=== PATIENT | male | born 1930 | race Caucasian/White ===

== ENCOUNTER → 2016-11-08 | Outpatient (CLI) | payer MEDICARE ==
--- NOTE | 2016-11-08 10:54 | XR ---
EXAMINATION TYPE: XR abdomen complete w decub DATE OF EXAM: 11/08/2016 10:49 AM COMPARISON: NONE HISTORY: Small bowel obstruction abdomen pain and distention TECHNIQUE: Abdomen is examined in the supine and upright left lateral decubitus views. FINDINGS: No free air is present. Nonspecific bowel gas is present with air within small bowel loops as well a s the colon. Fecal debris is within the colon. No dilated loops are evident. No suspicious air-fluid levels or differential air-fluid levels are present. Psoas margins are normal. Organomegaly is not ev ident. Cholecystectomy clips are in the right upper quadrant. A left hip prosthesis is present. IMPRESSION: 1. Nonspecific abdomen.
[2016-11-08 11:35] LABS: Calcium 9.8 mg/dL (8.4-10.2); Potassium 5.1 mmol/L (3.5-5.1); Total Bilirubin 0.8 mg/dL (0.2-1.3); Total Protein 6.8 g/dL (6.3-8.2)
[2016-11-08 11:52] LABS: CH 31.8; CHCM 33.7; HGB 11.3 gm/dL (13.0-17.5); MCH 31.6 pg (25.0-35.0); MCHC 33.3 g/dL (31.0-37.0); Mean Platelet Volume 8.8; RBC 3.58 m/uL (4.30-5.90); RDW 13.5 % (11.5-15.5); WBC 2.9 k/uL (3.8-10.6)
[2016-11-08 14:01] LABS: Hemoglobin A1C 7.1 % (4.2-6.1)
== END | disposition home or self-care (01) ==
LOC: RADXRMAIN 09:51
PROVIDERS: ATTEND Family Medicine
DX: R10.9 Unspecified abdominal pain (principal); K59.00 Constipation, unspecified; E11.9 Type 2 diabetes mellitus without complications; N39.0 Urinary tract infection, site not specified
CPT/HCPCS: 36415; 74020; 80053; 83036; 85027

== ENCOUNTER 2016-11-10 00:58 | Inpatient (IN) | payer MEDICARE ==
--- NOTE | 2016-11-10 01:16 | ED ---
General Adult HPI - General Chief complaint: Abdominal Pain Stated complaint: abd pain Time Seen by Provider: 11/10/16 01:14 Source: patient, RN notes reviewed, old records reviewed Mode of arrival: ambulatory Limitations: no limitations - History of Present Illness Initial comments: This is an 86-year-old male ER for evaluation of abdominal pain. Patient presenting to ER with evaluation of severe abdominal pain, inability to urinate , mild nausea no vomiting. Patient does self cath and has history of urinary tract infections. Patient also having difficulty was going to the bathroom, feels like he may be constipated. Not having complete bowel movements. No fevers no other complaints - Related Data Home Medications Medication Instructions Recorded Confirmed ALPRAZolam [Xanax] 0.25 mg PO DIRECTED PRN 06/30/14 11/10/16 Omeprazole [PriLOSEC] 20 mg PO DAILY 06/30/14 11/10/16 Simvastatin [Zocor] 20 mg PO DAILY 06/30/14 11/10/16 amLODIPine BESYLATE [Norvasc] 5 mg PO DAILY 06/30/14 11/10/16 metFORMIN HCL 1,000 mg PO DAILY 06/30/14 11/10/16 Previous Rx's Medication Instructions Recorded Levofloxacin [Levaquin] 500 mg PO DAILY #10 tab 07/03/14 Allergies Allergy/AdvReac Type Severity Reaction Status Date / Time No Known Allergies Allergy Verified 06/30/14 18:08 Review of Systems ROS Statement: Those systems with pertinent positive or pertinent negative responses have been documented in the HPI. ROS Other: All systems not noted in ROS Statement are negative. 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 Absent: scleral icterus, conjunctival injection, periorbital swelling ENT exam: Present: normal exam, mucous membranes moist Neck exam: Present: normal inspection. Absent: tenderness, meningismus, lymphadenopathy Respiratory exam: Present: normal lung sounds bilaterally. Absent: respiratory distress, wheezes, rales, rhonchi, stridor Cardiovascular Exam: Present: regular rate, normal rhythm, normal heart sounds. Absent: systolic murmur, diastolic murmur, rubs, gallop, clicks GI/Abdominal exam: Present: soft, distended, tenderness, guarding, normal bowel sounds. Absent: rebound, rigid Extremities exam: Present: normal inspection, full ROM, normal capillary refill. Absent: tenderness, pedal edema, joint swelling, calf tenderness Back exam: Present: normal inspection Neurological exam: Present: alert, oriented X3, CN II-XII intact Psychiatric exam: Present: normal affect, normal mood Skin exam: Present: warm, dry, intact, normal color. Absent: rash Course Vital Signs 11/10/16 11/10/16 01:02 03:09 Temperature 97.6 F Pulse Rate 83 82 Respiratory 20 16 Rate Blood Pressure 105/48 131/49 O2 Sat by Pulse 94 L 93 L Oximetry - Reevaluation(s) Reevaluation #1: 11/10/16 01:41 Patient's bowel pain is mildly improved Reevaluation #2: 11/10/16 03:30 Patient still of mild abdominal pain EKG Findings - EKG Comments: EKG Findings:: EKG shows normal sinus rhythm rate of 79, MS 136, qRS 74, QTC 417 Medical Decision Making - Medical Decision Making 86 male to the ER for evaluation PT patient presents for evaluation. Worsening bowel pain for a few days now. Patient does have CAT scan positive for cellulitis we'll consult surgery regarding possible development of Crohn's disease. Patient is also had decreased bowel movements. We'll also see surgery for that issue. Patient has no evidence of infection is dehydrated, we' ll keep patient nothing by mouth. - Lab Data Result diagrams: 11/10/16 01:30 11/10/16 01:30 Lab Results 11/10/16 11/10/16 11/10/16 Range/Units 01:30 01:30 01:30 WBC 3.0 L (3.8-10.6) k/uL RBC 3.41 L (4.30-5.90) m/uL Hgb 10.9 L (13.0-17.5) gm/dL Hct 32.0 L (39.0-53.0) % MCV 93.9 (80.0-100.0) fL MCH 32.0 (25.0-35.0) pg MCHC 34.1 (31.0-37.0) g/dL RDW 13.5 (11.5-15.5) % Plt Count 66 L (150-450) k/uL Neutrophils % (Manual) 18.0 % Band Neutrophils % 25.0 % Lymphocytes % (Manual) 51.0 % Monocytes % (Manual) 6.0 % Neutrophils # (Manual) 1.3 (1.3-7.7) k/uL Lymphocytes # (Manual) 1.5 (1.0-4.8) k/uL Monocytes # (Manual) 0.2 (0-1.0) k/uL Nucleated RBCs 0 (0-0) /100 WBC Manual Slide Review Performed Sodium 136 L (137-145) mmol/L Potassium 5.1 (3.5-5.1) mmol/L Chloride 103 (98-107) mmol/L Carbon Dioxide 21 L (22-30) mmol/L Anion Gap 12 mmol/L BUN 38 H (9-20) mg/dL Creatinine 2.20 H (0.66-1.25) mg/dL Est GFR (MDRD) Af Amer 35 (>60 ml/min/1.73 sqM) Est GFR (MDRD) Non-Af 29 (>60 ml/min/1.73 sqM) Glucose 120 H (74-99) mg/dL Calcium 10.2 (8.4-10.2) mg/dL Total Bilirubin 0.7 (0.2-1.3) mg/dL AST 33 (17-59) U/L ALT 55 (21-72) U/L Alkaline Phosphatase 93 (38-126) U/L Total Creatine Kinase <20 L (55-170) U/L CK-MB (CK-2) 1.1 (0.0-2.4) ng/mL CK-MB (CK-2) Rel Index 0.0 Troponin I <0.012 (0.000-0.034) ng/mL Total Protein 6.3 (6.3-8.2) g/dL Albumin 4.1 (3.5-5.0) g/dL Amylase <30 L (30-110) U/L Lipase 76 (23-300) U/L Urine Color Urine Appearance (Clear) Urine pH (5.0-8.0) Ur Specific Badin (1.001-1.035) Urine Protein (Negative) Urine Glucose (UA) (Negative) Urine Ketones (Negative) Urine Blood (Negative) Urine Nitrate (Negative) Urine Bilirubin (Negative) Urine Urobilinogen (<2.0) mg/dL Ur Leukocyte Esterase (Negative) Urine RBC (0-5) /hpf Urine WBC (0-5) /hpf Ur Squamous Epith Cells (0-4) /hpf Urine Bacteria (None) /hpf Hyaline Casts (0-2) /lpf Urine Mucus (None) /hpf 11/10/16 Range/Units 02:11 WBC (3.8-10.6) k/uL RBC (4.30-5.90) m/uL Hgb (13.0-17.5) gm/dL Hct (39.0-53.0) % MCV (80.0-100.0) fL MCH (25.0-35.0) pg MCHC (31.0-37.0) g/dL RDW (11.5-15.5) % Plt Count (150-450) k/uL Neutrophils % (Manual) % Band Neutrophils % % Lymphocytes % (Manual) % Monocytes % (Manual) % Neutrophils # (Manual) (1.3-7.7) k/uL Lymphocytes # (Manual) (1.0-4.8) k/uL Monocytes # (Manual) (0-1.0) k/uL Nucleated RBCs (0-0) /100 WBC Manual Slide Review Sodium (137-145) mmol/L Potassium (3.5-5.1) mmol/L Chloride (98-107) mmol/L Carbon Dioxide (22-30) mmol/L Anion Gap mmol/L BUN (9-20) mg/dL Creatinine (0.66-1.25) mg/dL Est GFR (MDRD) Af Amer (>60 ml/min/1.73 sqM) Est GFR (MDRD) Non-Af (>60 ml/min/1.73 sqM) Glucose (74-99) mg/dL Calcium (8.4-10.2) mg/dL Total Bilirubin (0.2-1.3) mg/dL AST (17-59) U/L ALT (21-72) U/L Alkaline Phosphatase (38-126) U/L Total Creatine Kinase (55-170) U/L CK-MB (CK-2) (0.0-2.4) ng/mL CK-MB (CK-2) Rel Index Troponin I (0.000-0.034) ng/mL Total Protein (6.3-8.2) g/dL Albumin (3.5-5.0) g/dL Amylase (30-110) U/L Lipase (23-300) U/L Urine Color Yellow Urine Appearance Cloudy (Clear) Urine pH 5.5 (5.0-8.0) Ur Specific Badin 1.018 (1.001-1.035) Urine Protein 1+ H (Negative) Urine Glucose (UA) Negative (Negative) Urine Ketones Negative (Negative) Urine Blood Small H (Negative) Urine Nitrate Negative (Negative) Urine Bilirubin Negative (Negative) Urine Urobilinogen <2.0 (<2.0) mg/dL Ur Leukocyte Esterase Moderate H (Negative) Urine RBC 3 (0-5) /hpf Urine WBC 11 H (0-5) /hpf Ur Squamous Epith Cells 2 (0-4) /hpf Urine Bacteria Few H (None) /hpf Hyaline Casts 45 H (0-2) /lpf Urine Mucus Rare H (None) /hpf Disposition Clinical Impression: Abdominal pain, Constipation, Ileitis, ARF (acute renal failure), Dehydration Disposition: ADMITTED IP TO THIS [facility] Condition: Good Referrals: Allen Burnette DO [Primary Care Provider] - 1-2 days
[2016-11-10] MEDS ORDERED: SODIUM CHLORIDE 0.9% 1,000 ML IV STA ×2 (01:23)
[2016-11-10] MEDS ORDERED: MORPHINE SULFATE 4 MG/ML SYRINGE IVP STA ×2 (01:27→03:27)
[2016-11-10 01:59] LABS: Aty Lym Flag Marked; CH 31.8; CHCM 34.1; HGB 10.9 gm/dL (13.0-17.5); MCHC 34.1 g/dL (31.0-37.0); MCV 93.9 fL (80.0-100.0); Mean Platelet Volume 8.6; RBC 3.41 m/uL (4.30-5.90); RDW 13.5 % (11.5-15.5); WBC (Perox) 3.18
[2016-11-10 02:10] LABS: ALT 55 U/L (21-72); AST 33 U/L (17-59); Alkaline Phosphatase 93 U/L (38-126); Amylase <30 U/L (30-110); Anion Gap 12 mmol/L; Blood Urea Nitrogen 38 mg/dL (9-20); Calcium 10.2 mg/dL (8.4-10.2); Carbon Dioxide 21 mmol/L (22-30); Chloride 103 mmol/L (98-107); Glucose 120 mg/dL (74-99); Non-African American GFR(MDRD) 29 (>60 ml/min/1.73 sqM); Potassium 5.1 mmol/L (3.5-5.1); Sodium 136 mmol/L (137-145); Total Bilirubin 0.7 mg/dL (0.2-1.3); Total Protein 6.3 g/dL (6.3-8.2)
[2016-11-10] MEDS ORDERED: RX INFO: IV CONTRAST WAS GIVEN 1 EACH MISC MISCELLANE PRN (02:14)
[2016-11-10 02:16] LABS: Add Differential Manual Differential
[2016-11-10 02:20] LABS: Creatine Kinase <20 U/L (55-170); Manual Review Performed; Nucleated Red Blood Cells 0 /100 WBC (0-0); Total Cells Counted 200
[2016-11-10 02:33] LABS: Creatine Kinase MB 1.1 ng/mL (0.0-2.4); Troponin I <0.012 ng/mL (0.000-0.034)
[2016-11-10 02:33] LABS: Appearance,Urine Cloudy (Clear); Bacteria,Urine Few /hpf; Bilirubin,Urine Negative (Negative); Glucose,Urine (UA) Negative (Negative); Ketones,Urine Negative (Negative); Leukocyte Esterase,Urine Moderate (Negative); Mucus,Urine Rare /hpf; Nitrite,Urine Negative (Negative); PH, Urine 5.5 (5.0-8.0); Particle Count 12094; Protein,Urine 1+ (Negative); RBC,Urine 3 /hpf (0-5); Specific Gravity,Urine 1.018 (1.001-1.035); Squamous Epithelial Cell,Urine 2 /hpf (0-4); UA Billing (MACRO vs. MICRO) MICRO; Urobilinogen,Urine <2.0 mg/dL (<2.0); WBC,Urine 11 /hpf (0-5)
--- NOTE | 2016-11-10 02:56 | CT ---
EXAMINATION TYPE: CT abdomen pelvis wo con DATE OF EXAM: 11/10/2016 2:48 AM COMPARISON: 07/28/2015 HISTORY: Left lower abd/groin pain, constipation, had bowel movement after laxatives. CT DLP: 658.20 mGycm Automated exposure control for dose reduction was used. TECHNIQUE: Helical acquisition of images was performed from the lung bases through the pelvis. FINDINGS: There is some patchy infiltrate or atelectasis at the left posterior lung base. There is no pleural e ffusion. Heart size is normal. Thoracic aorta is atheromatous. Liver shows no focal defect. There are clips from cholecystectomy. Bile ducts are not dilated. There is no sign of pancreatic mass. There are small calcified splenic granulomata. There is a small hiatal hernia. There is no adrenal mass. There is a 2 cm cyst on the upper pole left kidney. There are right renal c ortical cysts that measure up to 4 cm. There is no hydronephrosis. Ureters are not dilated. There is thickening of the wall of the terminal ileum with surrounding inflammatory changes. There is no sign of free air. 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 Bladder distends smoothly. There is high densit y in the cecum that apparently is ingested material. There is no evidence of a hernia. I do not see evidence of bowel obstruction. IMPRESSION: THERE IS A LONG SEGMENT OF TERMINAL ILEUM WITH EXTENSIVE INFLAMMATORY CHANGES AND WALL THICKENING UP TO 1.7 CM. THIS APPEARS NEW COMPARED TO OLD CT SCAN AND COULD RELATE TO CROHN'S DISEASE. NO FREE AIR. NO ABSCESS SEEN. There is patchy pneumonia and atelectasis at the left posterior lung base that is increased compared to old CT scan.
[2016-11-10] MEDS ORDERED: AMPICILLIN-SULBACTAM 3 GM in SODIUM CHLORIDE 0.9% 100 ML IVPB STA (02:58)
[2016-11-10] MEDS ORDERED: ONDANSETRON 4 MG/2 ML VIAL IVP STA (03:27)
[2016-11-10] MEDS ORDERED: ONDANSETRON 4 MG/2 ML VIAL IVP PRN (03:27)
[2016-11-10] MEDS: SODIUM CHLORIDE 0.9% 1,000 ML IV ONE ×2 (04:05→09:16)
[2016-11-10 07:44] LABS: Glucose,Whole Blood 64 mg/dL (75-99)
[2016-11-10 08:16] LABS: Glucose,Whole Blood 82 mg/dL (75-99)
[2016-11-10] MEDS ORDERED: ENOXAPARIN 40 MG/0.4 ML SYRINGE SQ SCH (09:00)
[2016-11-10] MEDS ORDERED: AMPICILLIN-SULBACTAM 3 GM in SODIUM CHLORIDE 0.9% 100 ML IVPB SCH (09:00)
[2016-11-10] MEDS ORDERED: ALPRAZolam 0.25 MG TAB PO PRN (10:57)
[2016-11-10 11:20] LABS: Glucose,Whole Blood 108 mg/dL (75-99)
--- NOTE | 2016-11-10 11:54 | XR ---
EXAMINATION TYPE: Single view AP chest x-ray DATE OF EXAM: 11/10/2016 11:50 AM COMPARISON: 06/20/2014 HISTORY: Pneumonia TECHNIQUE: Single frontal view of the chest is obtained. FINDINGS: There is linear changes in the right midlung most typical of atelectasis. Underlying COPD arthropathy of the shoulders. Subsegmental changes also noted at the left lung base. No pleural effusion or pneumothorax. IMPRESSION: 1. Subsegmental linear changes at the left lung base and right perihilar region. Atelectasis favored over pneumonia. Correlate clinically.
[2016-11-10 16:33] LABS: Glucose,Whole Blood 114 mg/dL (75-99)
--- NOTE | 2016-11-10 20:27 | HP ---
DATE OF ADMISSION: 11/10/2016 I am covering for Dr. Burnette. CHIEF COMPLAINT: Abdominal pain. HISTORY OF PRESENT ILLNESS: This 86-year-old gentleman with a past history of multiple medical problems, including history of diabetes, hypertension, hyperlipidemia, history of macular degeneration, history of bowel resection, cholecystectomy, being followed by Dr. Burnette with complaints of diffuse abdominal pain which started a couple of days ago. The patient also had difficulty with urination and also mild nausea and vomiting. Patient also had history of self-catheterization and the patient came to [facility], admitted for further evaluation and treatment. A CAT scan was done on admission which showed long segment of terminal ileum with extensive inflammatory changes of the wall, thickening up to 1.7 cm which was found to be new, and patchy infiltrate and atelectasis as well as posterior lung base was also suspected. There is no history of any fever, rigors. No history of headache, loss of consciousness, any coffee-ground emesis, hematemesis, melena at this time. PAST MEDICAL HISTORY: History of diabetes mellitus type 2, hypertension, hyperlipidemia, macular degeneration, bowel resection, cholecystectomy. Medications prior to admission include: 1. Metformin 1000 mg p.o. b.i.d. 2. Zocor 20 mg q.h.s. 4. Amaryl 2 mg p.o. b.i.d. 5. Cipro 500 mg p.o. b.i.d. 6. Tylenol No. 3, 1 tablet t.i.d. p.r.n. 7. Xanax 0.5 t.i.d. p.r.n. FAMILY HISTORY: No history of heart disease or strokes in the family. SOCIAL HISTORY: A current smoker, alcohol intake. Previous history of smoking. REVIEW OF SYSTEMS: ENT: Diminished hearing, diminished vision. CARDIOVASCULAR: No history of angina, palpitations. RESPIRATORY: As mentioned earlier. GI: As mentioned earlier. : No dysuria. NERVOUS: No numbness or weakness. ALLERGY/IMMUNOLOGY: No asthma or hay fever. MUSCULOSKELETAL: As mentioned earlier. HEMATOLOGY/ONCOLOGY: No history of anemia. ENDOCRINE: As mentioned earlier. CONSTITUTIONAL: As mentioned earlier. DERMATOLOGY: Negative. PSYCHIATRY: As mentioned earlier. On physical examination, patient alert and oriented x3. Pulse 82, blood pressure 120/58, respirations 17, temperature 97.4, pulse ox 94% on room air. HEENT: Conjunctivae normal. Oral mucosa moist. Neck is no jugular venous distension. No carotid bruits. No lymph node enlargement. CARDIOVASCULAR: S1 and S2 muffled. No S3. No S4. RESPIRATORY: Breath sounds diminished in the bases. A few scattered rhonchi. No crackles. ABDOMEN: Soft. Diffuse distention. Mild diffuse tenderness on deep palpation also present. Bowel sounds present. No mass palpable. No ascites. LEGS: No edema. No swelling. NERVOUS SYSTEM: Higher function as mentioned. Moves all 4 limbs. No focal motor deficits. LYMPHATIC: No lymph node palpable in neck, axillae or groin. SKIN: No ulcer, rash or bleeding. LABS: WBC 13, hemoglobin 10.9, platelets are 60. Sodium 136. ASSESSMENT: 1. Abdominal distention with possible ileitis. Rule out intestinal obstruction. 2. Rule out patchy pneumonia or atelectasis as well as posterior lung base on the chest x-ray. 3. Pancytopenia, mild. 4. Anemia, normocytic. 5. Hyponatremia. 6. Increased creatinine with, possibly acute on chronic kidney failure, chronic kidney disease, stage 2 baseline. 7. Increased random blood sugar. 8. Possible urinary tract infection. 9. Diabetes mellitus type 2. 10. Hypertension. 11. Hyperlipidemia 12. Macular degeneration. 13. History of bowel resection. 14. Cholecystectomy. 15. History of orthopedic surgery. RECOMMENDATIONS AND DISCUSSION: In this 86-year-old gentleman who presented with multiple complex medical issues, will monitor the patient closely. Continue with the current medications. Continue with symptomatic treatment. Will obtain the cultures. Symptomatic treatment with Unasyn has been initiated. Otherwise, continue the current medications. Surgery consultation. Guarded prognosis. Further recommendations to follow. MTDD
[2016-11-10] MEDS: ATORVASTATIN 10 MG TAB PO SCH (21:14)
[2016-11-10] MEDS: AMPICILLIN-SULBACTAM 3 GM in SODIUM CHLORIDE 0.9% 100 ML IVPB SCH (21:14)
[2016-11-10 23:06] LABS: Glucose,Whole Blood 120 mg/dL (75-99)
[2016-11-11 07:39] LABS: Glucose,Whole Blood 95 mg/dL (75-99)
[2016-11-11] MEDS: PANTOPRAZOLE 40 MG TABLET PO SCH (07:56)
[2016-11-11] MEDS: ENOXAPARIN 30 MG/0.3 ML SYRINGE SQ SCH (07:56)
[2016-11-11] MEDS: amLODIPine 5 MG TAB PO SCH (07:57)
[2016-11-11] MEDS: AMPICILLIN-SULBACTAM 3 GM in SODIUM CHLORIDE 0.9% 100 ML IVPB SCH ×2 (08:00→20:52)
[2016-11-11] MEDS: LISINOPRIL 5 MG TAB PO SCH (09:55)
[2016-11-11 12:26] LABS: Glucose,Whole Blood 94 mg/dL (75-99)
--- NOTE | 2016-11-11 16:10 | P.CON ---
Consult Note - . Consult date: 11/11/16 Assessment/Plan:: The patient presented with abdominal pains and constipation nausea to the emergency room. He states he's been somewhat constipated the for over a week now. Does have some chronic constipation. To the several different laxatives without success spinally took some citrate of magnesia which worked for him but only temporarily. Hasn't had a bowel movement again for about 2to 3 days. Developed some abdominal discomfort some cramps or bloating nausea and he presented to the emergency room again. Did have some left lower quadrant discomfort but now it's more diffuse and more so across the right and left lower abdomen. The does have urinary retention uses of self-catheterization regularly. However he states she's had no more difficult catheterizing himself. 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 Also had cholecystectomy and appendectomy in the past. Computed tomography scan showed a long narrowed segment of terminal ileum consistent with ileitis possibly Crohn's disease. No evidence of diverticulitis Past history well-documented. He is as above. Has hyperlipidemia hypertension. 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 Social history positive for smoking. Alcohol socially. He is . System review as above. Denies any definite chest pain cough or hemoptysis. Urine as above. Rectum. Physical examination: Patient is well-built well-nourished. Overweight in no acute distress. She is normal. Color is good. Hydration borderline. Head and neck otherwise normal. Heart regular rhythm. No murmurs. Abdomen is mildly distended soft with diffuse mild tenderness across the lower abdomen both in the right and left lower quadrant areas but no guarding or rebound or rigidity. Has well-healed midline scar. No mass or organomegaly. Muscles are somewhat the soft with lack of tone. Extremities normal. Minimal pedal edema. CLINICAL BUSINESS ANALYST Intact. Impression and plan: Partial obstruction probably secondary to terminal ileitis. Not sure as to the etiology. Dr. watkins is Crohn's particularly that he denies any history of diarrhea or inflammatory bowel disease in the past. Consider an upper GI small bowel series.
[2016-11-11 16:59] LABS: Glucose,Whole Blood 102 mg/dL (75-99)
[2016-11-11 20:25] LABS: Glucose,Whole Blood 101 mg/dL (75-99)
[2016-11-11] MEDS: ATORVASTATIN 10 MG TAB PO SCH (20:51)
--- NOTE | 2016-11-11 22:01 | PN ---
I am covering for Dr. Burnette. DATE OF SERVICE: 11/11/2016 HISTORY OF PRESENT ILLNESS: This 86 -year-old gentleman admitted to the hospital with abdominal pain, is being closely monitored. Surgical evaluation pending at this time. The patient had features of possibly ileitis or small of obstruction. No chest pain. No palpitation. No fever. The patient is constipated. On exam, alert and oriented x3. Pulse 91, blood pressure 140/62, respirations 16, temperature 98.1, pulse ox 98%, on room air. HEENT: Conjunctivae normal. NECK: No jugular venous distention. CARDIOVASCULAR: S1, S2 muffled. RESPIRATORY: Breath sounds diminished at the bases. No rhonchi. No crackles. ABDOMEN: Soft. Mild diffuse distention present, nontender. No guarding. No mass present. LEGS: No edema. No swelling. CENTRAL NERVOUS SYSTEM: No focal deficits. LABS: Accu-Cheks noted. WBC 3, hemoglobin 10.9, platelet 66. ASSESSMENT: 1. Abdominal distention with possible ileitis rule out intestinal obstruction. 2. Rule out patchy pneumonia atelectasis as well as in the posterior lung base on the chest x-ray. 3. Pancytopenia mild. 4. Anemia, normocytic. 5. Hyponatremia. 6. Increased creatinine with possible acute on chronic kidney disease. 7. Chronic kidney disease stage II baseline. 8. Increased random blood sugar. 9. Possible urinary tract infection. 10. Diabetes mellitus type 2. 11. Hypertension. 12. Hyperlipidemia. 13. Macular degeneration. 14. History of bowel resection. 15. History of cholecystectomy. 16. History of orthopedic surgery. RECOMMENDATIONS AND DISCUSSION: Recommend to continue current medications, continue with monitoring, symptomatic treatment. Otherwise, at this time, I recommend continue the current medications and symptomatic treatment. Recommend empiric antibiotics. Closely monitor. Unasyn has been initiated. Surgery consultation. Further recommendations to follow.
[2016-11-12 07:45] LABS: Glucose,Whole Blood 127 mg/dL (75-99)
[2016-11-12] MEDS: AMPICILLIN-SULBACTAM 3 GM in SODIUM CHLORIDE 0.9% 100 ML IVPB SCH ×2 (08:24→20:06)
[2016-11-12] MEDS: amLODIPine 5 MG TAB PO SCH (08:24)
[2016-11-12] MEDS: LISINOPRIL 5 MG TAB PO SCH (08:24)
[2016-11-12] MEDS: PANTOPRAZOLE 40 MG TABLET PO SCH (08:24)
[2016-11-12] MEDS: ENOXAPARIN 30 MG/0.3 ML SYRINGE SQ SCH (08:25)
[2016-11-12] MEDS ORDERED: metFORMIN 500 MG TAB PO SCH (09:00)
[2016-11-12 09:04] LABS: Aty Lym Flag Marked; CH 31.3; CHCM 32.6; HCT 32.6 % (39.0-53.0); HGB 10.7 gm/dL (13.0-17.5); MCH 31.8 pg (25.0-35.0); MCHC 32.9 g/dL (31.0-37.0); MCV 96.5 fL (80.0-100.0); Mean Platelet Volume 9.3; RBC 3.38 m/uL (4.30-5.90); RDW 13.7 % (11.5-15.5); WBC 2.4 k/uL (3.8-10.6); WBC (Perox) 2.78
[2016-11-12 09:05] LABS: Calcium 8.9 mg/dL (8.4-10.2); Magnesium 2.1 mg/dL (1.6-2.3); Phosphorous 4.2 mg/dL (2.5-4.5)
[2016-11-12 10:17] LABS: Add Differential Manual Differential
[2016-11-12] MEDS: SODIUM CHLORIDE 0.9% 1,000 ML IV SCH (11:08)
--- NOTE | 2016-11-12 11:15 | P.PN ---
Subjective Patient is an 86-year-old white male admitted with complaints of abdominal pain with evidence of partial small bowel obstruction suspect secondary to terminal ileitis. Patient also with evidence of patchy pneumonia or atelectasis in the posterior lung base per x-ray on admission. Complains of abdominal pain exacerbated with coughing. Patient reports minimal flatus without bowel movement. Denies chills, nausea, vomiting, shortness of breath, or chest pain. Patient is currently nothing by mouth. Urine output adequate. Afebrile. Hemodynamically stable. Objective - Vital Signs Vital signs: Vital Signs Temp 97.9 F 11/12/16 07:00 Pulse 82 11/12/16 07:00 Resp 16 11/12/16 07:00 BP 136/61 11/12/16 07:00 Pulse Ox 93 L 11/12/16 07:00 Intake & Output 11/11/16 11/12/16 11/12/16 18:59 06:59 18:59 Intake Total 200 220 Output Total 1100 Balance 200 -880 Weight 85.275 kg Intake: Intake, IV Titration 100 Amount Ampicillin-Sulbactam 3 gm 100 In Sodium Chloride 0.9% 100 ml @ 100 mls/hr IVPB Q12HR [facility] Rx#:[id number] Oral 200 120 Output: Urine 1100 Straight 1100 Other: Voiding Method Self-Catheterization Indwelling Catheter - Exam GENERAL: Pt awake and alert, sitting up in a chair, in no acute distress. HEAD: Atraumatic, normocephalic. EYES: Pupils equal and round. Sclera anicteric, conjunctiva are normal. ENT: Moist mucous membranes. NECK:Normal range of motion, supple without lymphadenopathy or JVD. LUNGS: Breath sounds diminished to posterior lobes. No wheezes, rales, or rhonchi. HEART: Heart S1, S2, no S3 or S4. Regular rate and rhythm. No murmurs, rubs or gallops. ABDOMEN: Soft, mild diffuse tenderness, moderate distention, hypoactive bowel sounds, No guarding, no rebound. No masses or organomegaly appreciated. EXTREMITIES: 2+ peripheral pulses. No edema, clubbing or cyanosis. No calf tenderness. NEUROLOGICAL: Pt oriented x 3. No focal deficits. PSYCH: Normal mood, normal affect. SKIN: Warm, dry, intact. Normal turgor. No rashes or lesions. - Labs CBC & Chem 7: 11/12/16 08:42 11/12/16 08:42 Labs: Abnormal Lab Results - Last 24 Hours (Table) 11/11/16 11/11/16 11/12/16 Range/Units 16:47 20:22 07:20 WBC (3.8-10.6) k/uL RBC (4.30-5.90) m/uL Hgb (13.0-17.5) gm/dL Hct (39.0-53.0) % Plt Count (150-450) k/uL Chloride (98-107) mmol/L BUN (9-20) mg/dL Creatinine (0.66-1.25) mg/dL Glucose (74-99) mg/dL POC Glucose (mg/dL) 102 H 101 H 127 H (75-99) mg/dL 11/12/16 11/12/16 Range/Units 08:42 08:42 WBC 2.4 L (3.8-10.6) k/uL RBC 3.38 L (4.30-5.90) m/uL Hgb 10.7 L (13.0-17.5) gm/dL Hct 32.6 L (39.0-53.0) % Plt Count 56 L (150-450) k/uL Chloride 108 H (98-107) mmol/L BUN 31 H (9-20) mg/dL Creatinine 1.70 H (0.66-1.25) mg/dL Glucose 125 H (74-99) mg/dL POC Glucose (mg/dL) (75-99) mg/dL Assessment and Plan Plan: Impression and plan: 1. Abdominal pain with possible ileitis rule out intestinal obstruction. Surgical consult in place, recommendations pending. Patient is currently nothing by mouth. Continue IV antibiotics. Continue IV hydration. 2. Rule out patchy pneumonia versus atelectasis with subsegmental linear changes at the left lung base and right perihilar region. Will order incentive spirometry for patient to use 10 times an hour while awake. 3. Pancytopenia, mild. WBC 3, hemoglobin 10.9, platelets 66. 4. Anemia, normocytic. Hemoglobin 10.9 from 11.3 yesterday. 5. Hyponatremia. Sodium 136. 6. Increased creatinine with possible acute on chronic kidney disease. Creatinine 2.2 from 1.85 yesterday. We'll hold lisinopril and metformin. Continue IV hydration. 7. Chronic kidney disease, stage III. 8. Increased random blood sugar. 9. Possible urinary tract infection, ruled out. Final urine culture negative. 10. Diabetes mellitus type 2. Hemoglobin A1c 7.1. 11. Hypertension. 12. Hyperlipidemia. 13. Macular degeneration. 14. History of bowel resection. 15. History of cholecystectomy. 16. History of orthopedic surgery. Continue to monitor patient. Continue current medications but will hold lisinopril and metformin. Continue supportive treatment and pain management. Continue GI and DVT prophylaxis. Continue empiric antibiotics. Continue follow with surgery. Repeat CBC and BMP in a.m. The above impression and plan have been discussed and directed by Dr. Burnette. Ponce LE acting as scribe for Dr. Burnette.
[2016-11-12 11:41] LABS: Glucose,Whole Blood 182 mg/dL (75-99)
[2016-11-12 11:58] LABS: Nucleated Red Blood Cells 0 /100 WBC (0-0); Total Cells Counted 200
[2016-11-12 12:04] LABS: Manual Review Performed
[2016-11-12 17:31] LABS: Glucose,Whole Blood 111 mg/dL (75-99)
[2016-11-12] MEDS: ATORVASTATIN 10 MG TAB PO SCH (20:07)
--- NOTE | 2016-11-12 20:23 | P.PN ---
Subjective Principal diagnosis: Enteritis Patient hospitalized with complaints of abdominal discomfort and constipation. He had a CAT scan performed showing a long segment of ileum that had acute inflammatory changes. Etiology unclear. He describes a several month history of intermittent constipation and abdominal discomforts. He has had some leukopenia this admission. Some bandemia was present initially. He denies any significant abdominal pain at this time. He is hungry. He did have a small amount of flatus. Currently on IV antibiotics. He had a previous bowel resection by myself 3-4 years ago. Those records are not available at this time to review. 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 Objective - Vital Signs Vital signs: Vital Signs Temp 98.1 F 11/12/16 15:00 Pulse 77 11/12/16 16:00 Resp 16 11/12/16 16:00 BP 143/63 11/12/16 15:00 Pulse Ox 97 11/12/16 15:00 Intake & Output 11/12/16 11/12/16 11/13/16 06:59 18:59 06:59 Intake Total 220 0 Output Total 1100 1550 Balance -880 -1550 Weight 85.275 kg Intake: Intake, IV Titration 100 Amount Ampicillin-Sulbactam 3 gm 100 In Sodium Chloride 0.9% 100 ml @ 100 mls/hr IVPB Q12HR [facility] Rx#:[id number] Oral 120 0 Output: Urine 1100 1550 Straight 1100 1550 Other: Voiding Method Indwelling Catheter Indwelling Catheter - Exam Abdomen: Obese, mild bilateral lower quadrant tenderness, no rebound or guarding - Labs CBC & Chem 7: 11/12/16 08:42 11/12/16 08:42 Labs: Abnormal Lab Results - Last 24 Hours (Table) 11/11/16 11/12/16 11/12/16 Range/Units 20:22 07:20 08:42 WBC 2.4 L (3.8-10.6) k/uL RBC 3.38 L (4.30-5.90) m/uL Hgb 10.7 L (13.0-17.5) gm/dL Hct 32.6 L (39.0-53.0) % Plt Count 56 L (150-450) k/uL Neutrophils # (Manual) 0.9 L (1.3-7.7) k/uL Chloride (98-107) mmol/L BUN (9-20) mg/dL Creatinine (0.66-1.25) mg/dL Glucose (74-99) mg/dL POC Glucose (mg/dL) 101 H 127 H (75-99) mg/dL 11/12/16 11/12/16 11/12/16 Range/Units 08:42 11:36 17:05 WBC (3.8-10.6) k/uL RBC (4.30-5.90) m/uL Hgb (13.0-17.5) gm/dL Hct (39.0-53.0) % Plt Count (150-450) k/uL Neutrophils # (Manual) (1.3-7.7) k/uL Chloride 108 H (98-107) mmol/L BUN 31 H (9-20) mg/dL Creatinine 1.70 H (0.66-1.25) mg/dL Glucose 125 H (74-99) mg/dL POC Glucose (mg/dL) 182 H 111 H (75-99) mg/dL Assessment and Plan (1) Enteritis Narrative/Plan: We'll review the patient's prior surgical records. Agree with bowel rest and IV antibiotics. We'll follow closely with you. Status: Acute
[2016-11-12 20:28] LABS: Glucose,Whole Blood 110 mg/dL (75-99)
[2016-11-12] MEDS: metroNIDAZOLE-NS PMX 500 MG in SALINE 1 100ML.BAG IVPB SCH (21:54)
[2016-11-13] MEDS: SODIUM CHLORIDE 0.9% 1,000 ML IV SCH ×3 (05:39→20:36)
[2016-11-13 07:29] LABS: Glucose,Whole Blood 123 mg/dL (75-99)
[2016-11-13] MEDS: ENOXAPARIN 40 MG/0.4 ML SYRINGE SQ SCH (08:08)
[2016-11-13] MEDS: PANTOPRAZOLE 40 MG TABLET PO SCH (08:08)
[2016-11-13] MEDS: amLODIPine 5 MG TAB PO SCH (08:08)
[2016-11-13] MEDS: AMPICILLIN-SULBACTAM 3 GM in SODIUM CHLORIDE 0.9% 100 ML IVPB SCH ×2 (08:08→20:36)
--- NOTE | 2016-11-13 08:26 | XR ---
EXAMINATION TYPE: XR abdomen 2V DATE OF EXAM: 11/13/2016 7:18 AM COMPARISON: 11/08/2016 INDICATION: Ileitis TECHNIQUE: Single view abdomen upright view and supine view FINDINGS: Colonic bowel gas is present. Some nonspecific small bowel gas is in the right lower quadrant. Some f ecal debris is present. Left hip prosthesis is present. Psoas margins are normal. No organomegaly is present. Cholecystectomy clips are in the right upper quadrant. IMPRESSION: 1. Nonspecific abdomen.
[2016-11-13 09:02] LABS: Calcium 8.9 mg/dL (8.4-10.2); Potassium 4.5 mmol/L (3.5-5.1)
[2016-11-13 09:07] LABS: Aty Lym Flag Marked; CH 31.1; CHCM 32.1; HCT 32.5 % (39.0-53.0); HDW 2.53; HGB 10.5 gm/dL (13.0-17.5); MCH 31.3 pg (25.0-35.0); MCHC 32.2 g/dL (31.0-37.0); MCV 97.3 fL (80.0-100.0); Mean Platelet Volume 8.7; RBC 3.34 m/uL (4.30-5.90); RDW 13.9 % (11.5-15.5); WBC 2.2 k/uL (3.8-10.6); WBC (Perox) 2.34
[2016-11-13] MEDS: metroNIDAZOLE-NS PMX 500 MG in SALINE 1 100ML.BAG IVPB SCH ×2 (10:02→16:30)
[2016-11-13 10:29] LABS: Add Differential Manual Differential
[2016-11-13 10:36] LABS: Band Neutrophils % 9.5 %; Manual Review Performed; Metamyelocytes % 1.5 %; Myelocytes % 1.5 %; Nucleated Red Blood Cells 0 /100 WBC (0-0); Total Cells Counted 200
[2016-11-13 12:31] LABS: Glucose,Whole Blood 120 mg/dL (75-99)
--- NOTE | 2016-11-13 13:59 | P.PN ---
Subjective Principal diagnosis: Enteritis Patient says he feels about the same today. Small amount of flatus, no bowel movement, no nausea or vomiting, he is hungry today's x-rays are nonspecific. Objective - Vital Signs Vital signs: Vital Signs Temp 97.5 F L 11/13/16 07:00 Pulse 92 11/13/16 07:00 Resp 18 11/13/16 07:00 BP 136/63 11/13/16 07:00 Pulse Ox 97 11/13/16 07:00 Intake & Output 11/12/16 11/13/16 11/13/16 18:59 06:59 18:59 Intake Total 0 1100 920 Output Total 1550 600 Balance -1550 500 920 Weight 85.275 kg Intake: IV 1100 700 Ampicillin-Sulbactam 3 gm 100 100 In Sodium Chloride 0.9% 100 ml @ 100 mls/hr IVPB Q12HR [facility] Rx#:[id number] Sodium Chloride 0.9% 1, 1000 600 000 ml @ 100 mls/hr IV . Q10H [facility] Rx#:[id number] Intake, IV Titration 100 Amount metroNIDAZOLE-NS PMX 500 100 mg In Saline 1 100ml.bag @ 100 mls/hr IVPB Q8HR [facility] Rx#:[id number] Oral 0 120 Output: Urine 1550 600 Straight 1550 Other: Voiding Method Indwelling Catheter Indwelling Catheter Indwelling Catheter - Exam Abdomen: Soft, mild right lower quadrant tenderness, mildly distended - Labs CBC & Chem 7: 11/13/16 07:50 11/13/16 07:50 Labs: Abnormal Lab Results - Last 24 Hours (Table) 11/12/16 11/12/16 11/12/16 Range/Units 08:42 17:05 20:15 WBC 2.4 L (3.8-10.6) k/uL RBC 3.38 L (4.30-5.90) m/uL Hgb 10.7 L (13.0-17.5) gm/dL Hct 32.6 L (39.0-53.0) % Plt Count 56 L (150-450) k/uL Neutrophils # (Manual) 0.9 L (1.3-7.7) k/uL Chloride (98-107) mmol/L Carbon Dioxide (22-30) mmol/L BUN (9-20) mg/dL Creatinine (0.66-1.25) mg/dL Glucose (74-99) mg/dL POC Glucose (mg/dL) 111 H 110 H (75-99) mg/dL 11/13/16 11/13/16 11/13/16 Range/Units 07:24 07:50 07:50 WBC 2.2 L (3.8-10.6) k/uL RBC 3.34 L (4.30-5.90) m/uL Hgb 10.5 L (13.0-17.5) gm/dL Hct 32.5 L (39.0-53.0) % Plt Count 52 L (150-450) k/uL Neutrophils # (Manual) 0.6 L (1.3-7.7) k/uL Chloride 110 H (98-107) mmol/L Carbon Dioxide 19 L (22-30) mmol/L BUN 31 H (9-20) mg/dL Creatinine 1.61 H (0.66-1.25) mg/dL Glucose 129 H (74-99) mg/dL POC Glucose (mg/dL) 123 H (75-99) mg/dL 11/13/16 Range/Units 12:25 WBC (3.8-10.6) k/uL RBC (4.30-5.90) m/uL Hgb (13.0-17.5) gm/dL Hct (39.0-53.0) % Plt Count (150-450) k/uL Neutrophils # (Manual) (1.3-7.7) k/uL Chloride (98-107) mmol/L Carbon Dioxide (22-30) mmol/L BUN (9-20) mg/dL Creatinine (0.66-1.25) mg/dL Glucose (74-99) mg/dL POC Glucose (mg/dL) 120 H (75-99) mg/dL Assessment and Plan (1) Enteritis Narrative/Plan: Begin clear liquid diet. Continue IV antibiotics. Status: Acute
--- NOTE | 2016-11-13 15:11 | P.PN ---
Subjective Principal diagnosis: Enteritis Patient is an 86-year-old white male admitted with complaints of abdominal pain with evidence of partial small bowel obstruction suspect secondary to terminal ileitis. Patient also with evidence of patchy pneumonia or atelectasis in the posterior lung base per x-ray on admission. Patient is evaluated on the medical floor and complains of generalized abdominal pain worse in right lower quadrant. Patient reports flatus without bowel movement. Denies chills, nausea , vomiting, shortness of breath, or chest pain. Patient is currently nothing by mouth. Urine output adequate. Afebrile. Hemodynamically stable. Abdominal x-ray nonspecific. Objective - Vital Signs Vital signs: Vital Signs Temp 97.5 F L 11/13/16 07:00 Pulse 92 11/13/16 07:00 Resp 18 11/13/16 07:00 BP 136/63 11/13/16 07:00 Pulse Ox 97 11/13/16 07:00 Intake & Output 11/12/16 11/13/16 11/13/16 18:59 06:59 18:59 Intake Total 0 1100 920 Output Total 1550 600 Balance -1550 500 920 Weight 85.275 kg 85.275 kg Intake: IV 1100 700 Ampicillin-Sulbactam 3 gm 100 100 In Sodium Chloride 0.9% 100 ml @ 100 mls/hr IVPB Q12HR [facility] Rx#:[id number] Sodium Chloride 0.9% 1, 1000 600 000 ml @ 100 mls/hr IV . Q10H [facility] Rx#:[id number] Intake, IV Titration 100 Amount metroNIDAZOLE-NS PMX 500 100 mg In Saline 1 100ml.bag @ 100 mls/hr IVPB Q8HR [facility] Rx#:[id number] Oral 0 120 Output: Urine 1550 600 Straight 1550 Other: Voiding Method Indwelling Catheter Indwelling Catheter Indwelling Catheter - Exam GENERAL: Pt awake and alert, lying in bed, in no acute distress. HEAD: Atraumatic, normocephalic. EYES: Pupils equal and round. Sclera anicteric, conjunctiva are normal. ENT: Moist mucous membranes. NECK:Normal range of motion, supple without lymphadenopathy or JVD. LUNGS: Breath sounds diminished to posterior lobes. No wheezes, rales, or rhonchi. HEART: Heart S1, S2, no S3 or S4. Regular rate and rhythm. No murmurs, rubs or gallops. ABDOMEN: Soft, mild diffuse tenderness more painful in the right lower quadrant , moderate distention, hypoactive bowel sounds, No guarding, no rebound. No masses or organomegaly appreciated. EXTREMITIES: 2+ peripheral pulses. No edema, clubbing or cyanosis. No calf tenderness. NEUROLOGICAL: Pt oriented x 3. No focal deficits. PSYCH: Normal mood, normal affect. SKIN: Warm, dry, intact. Normal turgor. - Labs CBC & Chem 7: 11/13/16 07:50 11/13/16 07:50 Labs: Abnormal Lab Results - Last 24 Hours (Table) 11/12/16 11/12/16 11/12/16 Range/Units 08:42 17:05 20:15 WBC 2.4 L (3.8-10.6) k/uL RBC 3.38 L (4.30-5.90) m/uL Hgb 10.7 L (13.0-17.5) gm/dL Hct 32.6 L (39.0-53.0) % Plt Count 56 L (150-450) k/uL Neutrophils # (Manual) 0.9 L (1.3-7.7) k/uL Chloride (98-107) mmol/L Carbon Dioxide (22-30) mmol/L BUN (9-20) mg/dL Creatinine (0.66-1.25) mg/dL Glucose (74-99) mg/dL POC Glucose (mg/dL) 111 H 110 H (75-99) mg/dL 11/13/16 11/13/16 11/13/16 Range/Units 07:24 07:50 07:50 WBC 2.2 L (3.8-10.6) k/uL RBC 3.34 L (4.30-5.90) m/uL Hgb 10.5 L (13.0-17.5) gm/dL Hct 32.5 L (39.0-53.0) % Plt Count 52 L (150-450) k/uL Neutrophils # (Manual) 0.6 L (1.3-7.7) k/uL Chloride 110 H (98-107) mmol/L Carbon Dioxide 19 L (22-30) mmol/L BUN 31 H (9-20) mg/dL Creatinine 1.61 H (0.66-1.25) mg/dL Glucose 129 H (74-99) mg/dL POC Glucose (mg/dL) 123 H (75-99) mg/dL 11/13/16 Range/Units 12:25 WBC (3.8-10.6) k/uL RBC (4.30-5.90) m/uL Hgb (13.0-17.5) gm/dL Hct (39.0-53.0) % Plt Count (150-450) k/uL Neutrophils # (Manual) (1.3-7.7) k/uL Chloride (98-107) mmol/L Carbon Dioxide (22-30) mmol/L BUN (9-20) mg/dL Creatinine (0.66-1.25) mg/dL Glucose (74-99) mg/dL POC Glucose (mg/dL) 120 H (75-99) mg/dL Assessment and Plan Plan: Impression and plan: 1. Abdominal pain suspect secondary to enteritis. Surgical consult in place, recommendations noted. Patient has been started on a clear liquid diet. Continue IV antibiotics. Continue IV hydration. 2. Rule out patchy pneumonia versus atelectasis with subsegmental linear changes at the left lung base and right perihilar region. Will order incentive spirometry for patient to use 10 times an hour while awake. 3. Pancytopenia, mild. WBC 2.2, hemoglobin 10.5, platelets 52. We'll consult Dr. Garcia for hematology service. 4. Anemia, normocytic. 5. 6. Increased creatinine with possible acute on chronic kidney disease. Creatinine improved to 1.61. We'll hold lisinopril and metformin. Continue IV hydration. 7. Chronic kidney disease, stage III. 8. Increased random blood sugar. 9. Possible urinary tract infection, ruled out. Final urine culture negative. 10. Diabetes mellitus type 2. Hemoglobin A1c 7.1. 11. Hypertension. Continue Norvasc. 12. Hyperlipidemia. Continue Lipitor. 13. Macular degeneration. 14. History of bowel resection. 15. History of cholecystectomy. 16. History of orthopedic surgery. Continue to monitor patient. Continue current medications. Continue supportive treatment and pain management. Continue GI and DVT prophylaxis. Continue empiric antibiotics. Continue to follow with surgery. Repeat CBC and BMP in a.m. The above impression and plan have been discussed and directed by Dr. Burnette. Ponce LE acting as scribe for Dr. Burnette.
[2016-11-13 17:27] LABS: Glucose,Whole Blood 119 mg/dL (75-99)
[2016-11-13] MEDS: ATORVASTATIN 10 MG TAB PO SCH (20:36)
[2016-11-13 21:11] LABS: Glucose,Whole Blood 187 mg/dL (75-99)
[2016-11-14] MEDS: metroNIDAZOLE-NS PMX 500 MG in SALINE 1 100ML.BAG IVPB SCH ×3 (01:19→15:32)
[2016-11-14] MEDS: SODIUM CHLORIDE 0.9% 1,000 ML IV SCH ×2 (06:21→13:37)
[2016-11-14 07:38] LABS: Glucose,Whole Blood 165 mg/dL (75-99)
[2016-11-14 07:48] LABS: Aty Lym Flag Marked; CH 31.1; CHCM 32.4; HCT 31.5 % (39.0-53.0); HGB 10.3 gm/dL (13.0-17.5); MCH 31.5 pg (25.0-35.0); MCHC 32.6 g/dL (31.0-37.0); MCV 96.7 fL (80.0-100.0); Mean Platelet Volume 8.3; RBC 3.26 m/uL (4.30-5.90); WBC (Perox) 2.06
[2016-11-14 07:55] LABS: Calcium 8.6 mg/dL (8.4-10.2); Potassium 4.6 mmol/L (3.5-5.1)
[2016-11-14] MEDS: INSULIN LISPRO (humaLOG) 300 UNIT/3 ML VIAL SQ SCH ×4 (08:06→21:59)
[2016-11-14] MEDS: amLODIPine 5 MG TAB PO SCH (08:06)
[2016-11-14] MEDS: PANTOPRAZOLE 40 MG TABLET PO SCH (08:06)
[2016-11-14] MEDS: ENOXAPARIN 40 MG/0.4 ML SYRINGE SQ SCH (08:06)
[2016-11-14 08:09] LABS: Add Differential Manual Differential
[2016-11-14 08:20] LABS: Hemoglobin A1C 7.3 % (4.2-6.1)
[2016-11-14 08:36] LABS: Nucleated Red Blood Cells 0 /100 WBC (0-0); Total Cells Counted 100
[2016-11-14 08:38] LABS: Manual Review Performed
[2016-11-14 08:39] LABS: Target Cells Present
[2016-11-14] MEDS: AMPICILLIN-SULBACTAM 3 GM in SODIUM CHLORIDE 0.9% 100 ML IVPB SCH ×2 (09:22→21:18)
[2016-11-14 09:42] LABS: Reticulocyte % 0.6 % (0.5-2.0)
[2016-11-14 10:53] LABS: % Iron Saturation 73.6 % (20-50)
--- NOTE | 2016-11-14 11:55 | P.PN ---
Subjective Principal diagnosis: Enteritis Patient's states his pain is for the most part gone. Denies nausea vomiting. Tolerating clear liquids. He had a small bowel movement that may have been dark in color. Labs show leukopenia and thrombocytopenia. Oncology has been consulted. Objective - Vital Signs Vital signs: Vital Signs Temp 97.4 F L 11/14/16 07:00 Pulse 73 11/14/16 07:00 Resp 16 11/14/16 07:00 BP 141/64 11/14/16 07:00 Pulse Ox 97 11/14/16 07:00 Intake & Output 11/13/16 11/14/16 11/14/16 18:59 06:59 18:59 Intake Total 920 1400 Output Total 800 500 Balance 120 900 Weight 85.275 kg Intake: IV 700 900 Ampicillin-Sulbactam 3 gm 100 In Sodium Chloride 0.9% 100 ml @ 100 mls/hr IVPB Q12HR [facility] Rx#:[id number] Sodium Chloride 0.9% 1, 600 900 000 ml @ 100 mls/hr IV . Q10H [facility] Rx#:[id number] Intake, IV Titration 100 Amount metroNIDAZOLE-NS PMX 500 100 mg In Saline 1 100ml.bag @ 100 mls/hr IVPB Q8HR [facility] Rx#:[id number] Oral 120 500 Output: Urine 800 500 Uretheral (Espinal) 800 500 Other: Voiding Method Indwelling Catheter Indwelling Catheter Indwelling Catheter # Bowel Movements 1 - Exam Abdomen: Soft, nondistended, no appreciable tenderness at this time - Labs CBC & Chem 7: 11/14/16 07:09 11/14/16 07:09 Labs: Abnormal Lab Results - Last 24 Hours (Table) 11/13/16 11/13/16 11/13/16 Range/Units 12:25 17:22 20:42 WBC (3.8-10.6) k/uL RBC (4.30-5.90) m/uL Hgb (13.0-17.5) gm/dL Hct (39.0-53.0) % Plt Count (150-450) k/uL Neutrophils # (Manual) (1.3-7.7) k/uL Chloride (98-107) mmol/L BUN (9-20) mg/dL Creatinine (0.66-1.25) mg/dL Glucose (74-99) mg/dL POC Glucose (mg/dL) 120 H 119 H 187 H (75-99) mg/dL Hemoglobin A1c (4.2-6.1) % TIBC (261-462) ug/dL % Saturation (20-50) % 11/14/16 11/14/16 11/14/16 Range/Units 06:02 07:09 07:09 WBC 2.0 L* (3.8-10.6) k/uL RBC 3.26 L (4.30-5.90) m/uL Hgb 10.3 L (13.0-17.5) gm/dL Hct 31.5 L (39.0-53.0) % Plt Count 44 L* (150-450) k/uL Neutrophils # (Manual) 0.3 L (1.3-7.7) k/uL Chloride 110 H (98-107) mmol/L BUN 25 H (9-20) mg/dL Creatinine 1.54 H (0.66-1.25) mg/dL Glucose 157 H (74-99) mg/dL POC Glucose (mg/dL) (75-99) mg/dL Hemoglobin A1c (4.2-6.1) % TIBC 246 L (261-462) ug/dL % Saturation 73.6 H (20-50) % 11/14/16 11/14/16 Range/Units 07:09 07:37 WBC (3.8-10.6) k/uL RBC (4.30-5.90) m/uL Hgb (13.0-17.5) gm/dL Hct (39.0-53.0) % Plt Count (150-450) k/uL Neutrophils # (Manual) (1.3-7.7) k/uL Chloride (98-107) mmol/L BUN (9-20) mg/dL Creatinine (0.66-1.25) mg/dL Glucose (74-99) mg/dL POC Glucose (mg/dL) 165 H (75-99) mg/dL Hemoglobin A1c 7.3 H (4.2-6.1) % TIBC (261-462) ug/dL % Saturation (20-50) % Assessment and Plan (1) Enteritis Narrative/Plan: Await oncology evaluation. Advance diet to full liquids. Repeat abdominal x- rays tomorrow. Eventual repeat CT abdomen likely be ordered. Status: Acute
[2016-11-14 11:58] LABS: Glucose,Whole Blood 211 mg/dL (75-99)
--- NOTE | 2016-11-14 11:58 | P.PN ---
Subjective Principal diagnosis: Enteritis Patient is an 86-year-old white male admitted with complaints of abdominal pain with evidence of partial small bowel obstruction suspect secondary to terminal ileitis. Patient also with evidence of patchy pneumonia or atelectasis in the posterior lung base per x-ray on admission. Patient is evaluated on the medical floor. Patient reports feeling overall better than yesterday. Patient still reports generalized abdominal pain worse in the right lower quadrant but reports less pain than yesterday after he had a bowel movement and was able to relieve some flatus. Denies chills, nausea, vomiting, shortness of breath, or chest pain. Patient is tolerating a clear liquid diet. Urine output adequate. Afebrile. Hemodynamically stable. Objective - Vital Signs Vital signs: Vital Signs Temp 97.4 F L 11/14/16 07:00 Pulse 73 11/14/16 07:00 Resp 16 11/14/16 07:00 BP 141/64 11/14/16 07:00 Pulse Ox 97 11/14/16 07:00 Intake & Output 11/13/16 11/14/16 11/14/16 18:59 06:59 18:59 Intake Total 920 1400 Output Total 800 500 Balance 120 900 Weight 85.275 kg Intake: IV 700 900 Ampicillin-Sulbactam 3 gm 100 In Sodium Chloride 0.9% 100 ml @ 100 mls/hr IVPB Q12HR [facility] Rx#:[id number] Sodium Chloride 0.9% 1, 600 900 000 ml @ 100 mls/hr IV . Q10H [facility] Rx#:[id number] Intake, IV Titration 100 Amount metroNIDAZOLE-NS PMX 500 100 mg In Saline 1 100ml.bag @ 100 mls/hr IVPB Q8HR [facility] Rx#:[id number] Oral 120 500 Output: Urine 800 500 Uretheral (Espinal) 800 500 Other: Voiding Method Indwelling Catheter Indwelling Catheter # Bowel Movements 1 - Exam GENERAL: Pt awake and alert, lying in bed, in no acute distress. HEAD: Atraumatic, normocephalic. EYES: Pupils equal and round. Sclera anicteric, conjunctiva are normal. ENT: Moist mucous membranes. NECK:Normal range of motion, supple without lymphadenopathy or JVD. LUNGS: Breath sounds diminished to posterior lobes. No wheezes, rales, or rhonchi. HEART: Heart S1, S2, no S3 or S4. Regular rate and rhythm. No murmurs, rubs or gallops. ABDOMEN: Soft, mild diffuse tenderness more painful in the right lower quadrant , moderate distention, active bowel sounds, No guarding, no rebound. No masses or organomegaly appreciated. EXTREMITIES: 2+ peripheral pulses. No edema, clubbing or cyanosis. No calf tenderness. NEUROLOGICAL: Pt oriented x 3. No focal deficits. PSYCH: Normal mood, normal affect. SKIN: Warm, dry, intact. Normal turgor. - Labs CBC & Chem 7: 11/14/16 07:09 11/14/16 07:09 Labs: Abnormal Lab Results - Last 24 Hours (Table) 11/13/16 11/13/16 11/13/16 Range/Units 12:25 17:22 20:42 WBC (3.8-10.6) k/uL RBC (4.30-5.90) m/uL Hgb (13.0-17.5) gm/dL Hct (39.0-53.0) % Plt Count (150-450) k/uL Neutrophils # (Manual) (1.3-7.7) k/uL Chloride (98-107) mmol/L BUN (9-20) mg/dL Creatinine (0.66-1.25) mg/dL Glucose (74-99) mg/dL POC Glucose (mg/dL) 120 H 119 H 187 H (75-99) mg/dL Hemoglobin A1c (4.2-6.1) % TIBC (261-462) ug/dL % Saturation (20-50) % 11/14/16 11/14/16 11/14/16 Range/Units 06:02 07:09 07:09 WBC 2.0 L* (3.8-10.6) k/uL RBC 3.26 L (4.30-5.90) m/uL Hgb 10.3 L (13.0-17.5) gm/dL Hct 31.5 L (39.0-53.0) % Plt Count 44 L* (150-450) k/uL Neutrophils # (Manual) 0.3 L (1.3-7.7) k/uL Chloride 110 H (98-107) mmol/L BUN 25 H (9-20) mg/dL Creatinine 1.54 H (0.66-1.25) mg/dL Glucose 157 H (74-99) mg/dL POC Glucose (mg/dL) (75-99) mg/dL Hemoglobin A1c (4.2-6.1) % TIBC 246 L (261-462) ug/dL % Saturation 73.6 H (20-50) % 11/14/16 11/14/16 Range/Units 07:09 07:37 WBC (3.8-10.6) k/uL RBC (4.30-5.90) m/uL Hgb (13.0-17.5) gm/dL Hct (39.0-53.0) % Plt Count (150-450) k/uL Neutrophils # (Manual) (1.3-7.7) k/uL Chloride (98-107) mmol/L BUN (9-20) mg/dL Creatinine (0.66-1.25) mg/dL Glucose (74-99) mg/dL POC Glucose (mg/dL) 165 H (75-99) mg/dL Hemoglobin A1c 7.3 H (4.2-6.1) % TIBC (261-462) ug/dL % Saturation (20-50) % Assessment and Plan Plan: Impression and plan: 1. Abdominal pain suspect secondary to enteritis, improved. Surgical consult in place, recommendations noted. Diet has been advanced to full liquids. Continue IV antibiotics. Continue IV hydration. 2. Rule out patchy pneumonia versus atelectasis with subsegmental linear changes at the left lung base and right perihilar region. Will order incentive spirometry for patient to use 10 times an hour while awake. 3. Pancytopenia. WBC decreased to 2 from 2.2, hemoglobin 10.3, platelets decreased to 44 from 52. Consult requested for hematology service, recommendations pending. 4. Anemia, normocytic. 6. Increased creatinine with possible acute on chronic kidney disease. Creatinine improved to 1.54. We'll hold lisinopril and metformin. Continue IV hydration. 7. Chronic kidney disease, stage III. 8. Increased random blood sugar. 9. Possible urinary tract infection, ruled out. Final urine culture negative. 10. Diabetes mellitus type 2. Hemoglobin A1c 7.3. 11. Hypertension. Continue Norvasc. 12. Hyperlipidemia. Continue Lipitor. 13. Macular degeneration. 14. History of bowel resection. 15. History of cholecystectomy. 16. History of orthopedic surgery. Continue to monitor patient. Continue current medications. Continue supportive treatment and pain management. Continue GI and DVT prophylaxis. Continue empiric antibiotics. Continue to follow with surgery. Repeat CBC and BMP in a.m. The above impression and plan have been discussed and directed by Dr. Burnette. Ponce LE acting as scribe for Dr. Burnette.
--- NOTE | 2016-11-14 13:02 | P.CONS ---
History of Present Illness - Reason for Consult Consult date: 11/14/16 Pancytopenia Requesting physician: Ponce Herrera - Chief Complaint abd pain, distension - History of Present Illness Mr. Zuniga is a very pleasant male pt of Dr. Burnette who came to the hospital because his abd was getting more distended, more uncomfortable and he was getting weaker over the last week, about 2 weeks ago is when he noticed easy fatigue, he could not walk the [place] without needing to take a break, he has just been feeling "so tired". He denies any recent illnesses, appetite has been down because of his abd distension and discomfort and because he has diverticulitis but prior to the last 2 weeks he was eating and drinking normally for him, no aware of any fevers, lymph node swellings, no new MS aches , pains or joint swellings, no nausea, difficulty breathing, chest pain, palpitations, dysuria, hematuria, diarrhea, some constipation, denies any bleeding or spontaneous bruising, swelling or rashes. 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, left hip replacement Past Anesthesia/Blood Transfusion Reactions: No Reported Reaction Past Psychological History: No Psychological Hx Reported Smoking Status: Former smoker Past Alcohol Use History: None Reported Past Drug Use History: None Reported - Past Family History Father Additional Family Medical History / Comment(s): at 55, sudden cardiac issue Mother Additional Family Medical History / Comment(s): dies at 55, abd cancer Medications and Allergies Home Medications Medication Instructions Recorded Confirmed Type ALPRAZolam [Xanax] 0.25 mg PO TID PRN 06/30/14 11/10/16 History Simvastatin [Zocor] 20 mg PO HS 06/30/14 11/10/16 History metFORMIN HCL 1,000 mg PO BID 06/30/14 11/10/16 History Acetaminophen-Codeine 300-30mg 1 tab PO TID PRN 11/10/16 11/10/16 History [Tylenol #3] Ciprofloxacin HCl [Cipro] 500 mg PO Q12HR 11/10/16 11/10/16 History Glimepiride [Amaryl] 2 mg PO BID 11/10/16 11/10/16 History Lisinopril [Prinivil] 5 mg PO DAILY 11/10/16 11/10/16 History Allergies Allergy/AdvReac Type Severity Reaction Status Date / Time No Known Allergies Allergy Verified 11/10/16 11:32 Physical Exam Vitals: Vital Signs Temp Pulse Pulse Resp BP Pulse Ox 11/14/16 07:00 97.4 F L 73 16 141/64 97 11/13/16 21:30 97.7 F 87 16 119/52 92 L 11/13/16 15:00 98 F 80 18 138/63 94 L Intake and Output 11/13/16 11/14/16 11/14/16 22:59 06:59 14:59 Intake Total 500 900 720 Output Total 800 500 Balance -300 400 720 Intake: IV 900 Sodium Chloride 0.9% 1, 900 000 ml @ 100 mls/hr IV . Q10H [facility] Rx#:[id number] Oral 500 720 Output: Urine 800 500 Uretheral (Espinal) 800 500 Other: Voiding Method Indwelling Catheter Indwelling Catheter # Bowel Movements 1 - Constitutional General appearance: average body habitus, cooperative, no acute distress - EENT Eyes: anicteric sclerae, PERRLA ENT: normal oropharynx - Neck Neck: no lymphadenopathy - Respiratory Respiratory: bilateral: CTA - Cardiovascular Rhythm: regular Heart sounds: normal: S1, S2 Abnormal Heart Sounds: no systolic murmur, no diastolic murmur, no rub, no S3 Gallop, no S4 Gallop, no click, no other leg Peripheral Edema: bilateral: None - Gastrointestinal General gastrointestinal: distended, normal bowel sounds, soft Localized gastrointestinal: tender: LUQ, RLQ - Integumentary Integumentary: pale - Neurologic Neurologic: CNII-XII intact - Musculoskeletal Musculoskeletal: generalized weakness, strength equal bilaterally - Psychiatric Psychiatric: A&O x's 3, appropriate affect, intact judgment & insight Results CBC & Chem 7: 11/14/16 07:09 11/14/16 07:09 Labs: Abnormal Lab Results - Last 24 Hours (Table) 11/13/16 11/13/16 11/14/16 Range/Units 17:22 20:42 06:02 WBC (3.8-10.6) k/uL RBC (4.30-5.90) m/uL Hgb (13.0-17.5) gm/dL Hct (39.0-53.0) % Plt Count (150-450) k/uL Neutrophils # (Manual) (1.3-7.7) k/uL Chloride (98-107) mmol/L BUN (9-20) mg/dL Creatinine (0.66-1.25) mg/dL Glucose (74-99) mg/dL POC Glucose (mg/dL) 119 H 187 H (75-99) mg/dL Hemoglobin A1c (4.2-6.1) % TIBC 246 L (261-462) ug/dL % Saturation 73.6 H (20-50) % 11/14/16 11/14/16 11/14/16 Range/Units 07:09 07:09 07:09 WBC 2.0 L* (3.8-10.6) k/uL RBC 3.26 L (4.30-5.90) m/uL Hgb 10.3 L (13.0-17.5) gm/dL Hct 31.5 L (39.0-53.0) % Plt Count 44 L* (150-450) k/uL Neutrophils # (Manual) 0.3 L (1.3-7.7) k/uL Chloride 110 H (98-107) mmol/L BUN 25 H (9-20) mg/dL Creatinine 1.54 H (0.66-1.25) mg/dL Glucose 157 H (74-99) mg/dL POC Glucose (mg/dL) (75-99) mg/dL Hemoglobin A1c 7.3 H (4.2-6.1) % TIBC (261-462) ug/dL % Saturation (20-50) % 11/14/16 11/14/16 Range/Units 07:37 11:56 WBC (3.8-10.6) k/uL RBC (4.30-5.90) m/uL Hgb (13.0-17.5) gm/dL Hct (39.0-53.0) % Plt Count (150-450) k/uL Neutrophils # (Manual) (1.3-7.7) k/uL Chloride (98-107) mmol/L BUN (9-20) mg/dL Creatinine (0.66-1.25) mg/dL Glucose (74-99) mg/dL POC Glucose (mg/dL) 165 H 211 H (75-99) mg/dL Hemoglobin A1c (4.2-6.1) % TIBC (261-462) ug/dL % Saturation (20-50) % Chest x-ray: report reviewed Abdominal x-ray: report reviewed CT scan - abdomen: report reviewed CT scan - pelvis: report reviewed Assessment and Plan (1) Pancytopenia Narrative/Plan: On chart review pancytopenia is new onset. Primary marrow pathology, including early/low grade Myelodysplasia, is in the differential, pt age and comorbid conditions including current infection/bowel inflammation can exacerbate a low grade dysplasia. Labs will be checked for nutritional deficits as well. We will follow up on the labs results and see how pt counts recover as he is treated for infection. No need for any transfusions or GCSF at this time. Status: Acute
[2016-11-14 17:18] LABS: Glucose,Whole Blood 145 mg/dL (75-99)
[2016-11-14] MEDS: ATORVASTATIN 10 MG TAB PO SCH (21:18)
[2016-11-14 21:52] LABS: Glucose,Whole Blood 171 mg/dL (75-99)
[2016-11-15] MEDS: SODIUM CHLORIDE 0.9% 1,000 ML IV SCH ×3 (00:15→22:56)
[2016-11-15] MEDS: metroNIDAZOLE-NS PMX 500 MG in SALINE 1 100ML.BAG IVPB SCH ×3 (00:16→16:28)
[2016-11-15 07:44] LABS: Glucose,Whole Blood 179 mg/dL (75-99)
[2016-11-15] MEDS: amLODIPine 5 MG TAB PO SCH (07:59)
[2016-11-15] MEDS: PANTOPRAZOLE 40 MG TABLET PO SCH (07:59)
[2016-11-15] MEDS: INSULIN LISPRO (humaLOG) 300 UNIT/3 ML VIAL SQ SCH ×6 (08:01→20:59)
--- NOTE | 2016-11-15 08:07 | XR ---
EXAMINATION TYPE: XR abdomen 2V DATE OF EXAM: 11/15/2016 7:22 AM CLINICAL DATA: 86-year-old male follow-up enteritis, COMPARISON: 11/13/2016 FINDINGS: Some strandy atelectasis at the lung bases. No evidence for free intraperitoneal air. Cholecystectomy clips are present. Overall nonobstructive bowel gas pattern. Small colonic air-fluid levels present on the upright view. Some vascular calcifications and phleboliths in the pelvis. Left hip total arthroplasty partially vis ualized. IMPRESSION: A few small scattered air-fluid levels in the transverse colon could reflect an enteritis. No evidenc e of bowel obstruction or free intraperitoneal air.
[2016-11-15] MEDS: AMPICILLIN-SULBACTAM 3 GM in SODIUM CHLORIDE 0.9% 100 ML IVPB SCH ×2 (08:58→17:44)
[2016-11-15 09:29] LABS: Aty Lym Flag Moderate; CHCM 32.3; HCT 32.9 % (39.0-53.0); HDW 2.61; HGB 10.6 gm/dL (13.0-17.5); MCH 31.2 pg (25.0-35.0); MCHC 32.2 g/dL (31.0-37.0); MCV 96.8 fL (80.0-100.0); Mean Platelet Volume 10.2; RBC 3.39 m/uL (4.30-5.90); RDW 14.2 % (11.5-15.5); WBC (Perox) 1.75
[2016-11-15 09:47] LABS: Calcium 8.9 mg/dL (8.4-10.2); Potassium 4.1 mmol/L (3.5-5.1)
[2016-11-15 09:52] LABS: WBC 1.9 k/uL (3.8-10.6)
[2016-11-15 10:45] LABS: Add Differential Manual Differential
[2016-11-15] MEDS: FILGRASTIM-SNDZ 480 MCG/0.8 ML SYRINGE SQ SCH (10:57)
[2016-11-15 10:58] LABS: Nucleated Red Blood Cells 0 /100 WBC (0-0); Total Cells Counted 100
[2016-11-15 11:05] LABS: Free Kappa Lt Chain Qnt, Serum 3.22 mg/dL (0.33 - 1.94); Kappa/Lambda Light Chain Ratio 1.13 (0.26 - 1.65)
[2016-11-15 11:16] LABS: Glucose,Whole Blood 227 mg/dL (75-99)
--- NOTE | 2016-11-15 13:38 | P.PN ---
Subjective Principal diagnosis: Enteritis Patient is an 86-year-old white male admitted with complaints of abdominal pain with evidence of partial small bowel obstruction suspect secondary to terminal ileitis. Patient also with evidence of patchy pneumonia or atelectasis in the posterior lung base per x-ray on admission. Patient is evaluated on the medical floor. Patient is complaining of weakness and reports lightheadedness as he was getting out of bed this morning. Denies chills, nausea, vomiting, shortness of breath, or chest pain. Patient is tolerating a full liquid diet but states he gets full quickly. Patient reports flatus with loose dark stools. Urine output adequate. Afebrile. Hemodynamically stable. Repeat abdominal x-ray with diffuse scattered air-fluid levels in the transverse colon could reflect enteritis with no evidence of bowel obstruction or free intraperitoneal air. Objective - Vital Signs Vital signs: Vital Signs Temp 97.6 F 11/15/16 07:00 Pulse 91 11/15/16 07:00 Resp 18 11/15/16 07:00 BP 133/62 11/15/16 07:00 Pulse Ox 95 11/15/16 07:00 Intake & Output 11/14/16 11/15/16 11/15/16 18:59 06:59 18:59 Intake Total 1760 1010 Output Total 800 Balance 1760 210 Intake: IV 700 800 Ampicillin-Sulbactam 3 gm 100 100 In Sodium Chloride 0.9% 100 ml @ 100 mls/hr IVPB Q12HR [facility] Rx#:[id number] Sodium Chloride 0.9% 1, 600 600 000 ml @ 100 mls/hr IV . Q10H [facility] Rx#:[id number] metroNIDAZOLE-NS PMX 500 100 mg In Saline 1 100ml.bag @ 100 mls/hr IVPB Q8HR [facility] Rx#:[id number] Intake, IV Titration 100 Amount metroNIDAZOLE-NS PMX 500 100 mg In Saline 1 100ml.bag @ 100 mls/hr IVPB Q8HR [facility] Rx#:[id number] Oral 960 210 Output: Urine 800 Uretheral (Espinal) 800 Other: Voiding Method Indwelling Catheter Indwelling Catheter Indwelling Catheter # Bowel Movements 1 - Exam GENERAL: Pt awake and alert, lying in bed, in no acute distress. HEAD: Atraumatic, normocephalic. EYES: Pupils equal and round. Sclera anicteric, conjunctiva are normal. ENT: Moist mucous membranes. NECK:Normal range of motion, supple without lymphadenopathy or JVD. LUNGS: Breath sounds diminished to posterior lobes. No wheezes, rales, or rhonchi. HEART: Heart S1, S2, no S3 or S4. Regular rate and rhythm. No murmurs, rubs or gallops. ABDOMEN: Soft, mild diffuse tenderness more painful in the right lower quadrant , moderate distention, active bowel sounds, No guarding, no rebound. EXTREMITIES: 2+ peripheral pulses. No edema, clubbing or cyanosis. No calf tenderness. NEUROLOGICAL: Pt oriented x 3. No focal deficits. PSYCH: Normal mood, normal affect. SKIN: Warm, dry, intact. Normal turgor. - Labs CBC & Chem 7: 11/15/16 08:55 11/15/16 08:55 Labs: Abnormal Lab Results - Last 24 Hours (Table) 11/14/16 11/14/16 11/14/16 Range/Units 06:02 17:17 21:44 WBC (3.8-10.6) k/uL RBC (4.30-5.90) m/uL Hgb (13.0-17.5) gm/dL Hct (39.0-53.0) % Plt Count (150-450) k/uL Neutrophils # (Manual) (1.3-7.7) k/uL Chloride (98-107) mmol/L Carbon Dioxide (22-30) mmol/L Creatinine (0.66-1.25) mg/dL Glucose (74-99) mg/dL POC Glucose (mg/dL) 145 H 171 H (75-99) mg/dL RBC Folate 840 H (280 - 791) ng/mL 11/15/16 11/15/16 11/15/16 Range/Units 07:31 08:55 08:55 WBC 1.9 L* (3.8-10.6) k/uL RBC 3.39 L (4.30-5.90) m/uL Hgb 10.6 L (13.0-17.5) gm/dL Hct 32.9 L (39.0-53.0) % Plt Count 34 L* (150-450) k/uL Neutrophils # (Manual) 0.3 L (1.3-7.7) k/uL Chloride 111 H (98-107) mmol/L Carbon Dioxide 20 L (22-30) mmol/L Creatinine 1.42 H (0.66-1.25) mg/dL Glucose 223 H (74-99) mg/dL POC Glucose (mg/dL) 179 H (75-99) mg/dL RBC Folate (280 - 791) ng/mL 11/15/16 Range/Units 11:14 WBC (3.8-10.6) k/uL RBC (4.30-5.90) m/uL Hgb (13.0-17.5) gm/dL Hct (39.0-53.0) % Plt Count (150-450) k/uL Neutrophils # (Manual) (1.3-7.7) k/uL Chloride (98-107) mmol/L Carbon Dioxide (22-30) mmol/L Creatinine (0.66-1.25) mg/dL Glucose (74-99) mg/dL POC Glucose (mg/dL) 227 H (75-99) mg/dL RBC Folate (280 - 791) ng/mL Assessment and Plan Plan: Impression and plan: 1. Abdominal pain suspect secondary to enteritis, improved. Surgical consult in place, recommendations noted. Diet has been advanced to full liquids. Continue IV antibiotics. Continue IV hydration. 2. Rule out patchy pneumonia versus atelectasis with subsegmental linear changes at the left lung base and right perihilar region. Will order incentive spirometry for patient to use 10 times an hour while awake. 3. Pancytopenia. WBC decreased to 1.9 from 2, hemoglobin 10.6, platelets decreased to 34 from 44. Consult requested for hematology service, recommendations noted. Patient has been started on Zarxio. 4. Anemia, normocytic. 6. Increased creatinine with possible acute on chronic kidney disease. Creatinine improved to 1.42. We'll hold lisinopril and metformin. Continue IV hydration. 7. Chronic kidney disease, stage III. 8. Increased random blood sugar. 9. Possible urinary tract infection, ruled out. Final urine culture negative. 10. Diabetes mellitus type 2. Hemoglobin A1c 7.3. Blood sugars elevated. Will start patient on Lantus protocol. 11. Hypertension. Continue Norvasc. 12. Hyperlipidemia. Continue Lipitor. 13. Macular degeneration. 14. History of bowel resection. 15. History of cholecystectomy. 16. History of orthopedic surgery. Continue to monitor patient. Continue current medications. Continue supportive treatment and pain management. Continue GI and DVT prophylaxis. Continue empiric antibiotics. Continue to follow with surgery and hematology. Repeat CBC and BMP in a.m. The above impression and plan have been discussed and directed by Dr. Burnette. Ponce LE acting as scribe for Dr. Burnette.
--- NOTE | 2016-11-15 14:40 | P.PN ---
Subjective Principal diagnosis: Enteritis Patient denies any significant abdominal pain at this point. Tolerating full liquid diet although admits that he is only taking in about 50% of his tray. He is having multiple loose stools that are uncontrolled. Denies rectal bleeding or melena. No nausea or vomiting. Today's labs show a decrease in white blood cell and platelets. Objective - Vital Signs Vital signs: Vital Signs Temp 97.6 F 11/15/16 07:00 Pulse 91 11/15/16 07:00 Resp 18 11/15/16 07:00 BP 133/62 11/15/16 07:00 Pulse Ox 95 11/15/16 07:00 Intake & Output 11/14/16 11/15/16 11/15/16 18:59 06:59 18:59 Intake Total 1760 1010 Output Total 800 Balance 1760 210 Weight 85.275 kg Intake: IV 700 800 Ampicillin-Sulbactam 3 gm 100 100 In Sodium Chloride 0.9% 100 ml @ 100 mls/hr IVPB Q12HR [facility] Rx#:[id number] Sodium Chloride 0.9% 1, 600 600 000 ml @ 100 mls/hr IV . Q10H [facility] Rx#:[id number] metroNIDAZOLE-NS PMX 500 100 mg In Saline 1 100ml.bag @ 100 mls/hr IVPB Q8HR [facility] Rx#:[id number] Intake, IV Titration 100 Amount metroNIDAZOLE-NS PMX 500 100 mg In Saline 1 100ml.bag @ 100 mls/hr IVPB Q8HR [facility] Rx#:[id number] Oral 960 210 Output: Urine 800 Uretheral (Espinal) 800 Other: Voiding Method Indwelling Catheter Indwelling Catheter Indwelling Catheter # Bowel Movements 1 - Exam Abdomen: Soft, minimal distention, nontender - Labs CBC & Chem 7: 11/15/16 08:55 11/15/16 08:55 Labs: Abnormal Lab Results - Last 24 Hours (Table) 11/14/16 11/14/16 11/14/16 Range/Units 06:02 17:17 21:44 WBC (3.8-10.6) k/uL RBC (4.30-5.90) m/uL Hgb (13.0-17.5) gm/dL Hct (39.0-53.0) % Plt Count (150-450) k/uL Neutrophils # (Manual) (1.3-7.7) k/uL Chloride (98-107) mmol/L Carbon Dioxide (22-30) mmol/L Creatinine (0.66-1.25) mg/dL Glucose (74-99) mg/dL POC Glucose (mg/dL) 145 H 171 H (75-99) mg/dL RBC Folate 840 H (280 - 791) ng/mL 11/15/16 11/15/16 11/15/16 Range/Units 07:31 08:55 08:55 WBC 1.9 L* (3.8-10.6) k/uL RBC 3.39 L (4.30-5.90) m/uL Hgb 10.6 L (13.0-17.5) gm/dL Hct 32.9 L (39.0-53.0) % Plt Count 34 L* (150-450) k/uL Neutrophils # (Manual) 0.3 L (1.3-7.7) k/uL Chloride 111 H (98-107) mmol/L Carbon Dioxide 20 L (22-30) mmol/L Creatinine 1.42 H (0.66-1.25) mg/dL Glucose 223 H (74-99) mg/dL POC Glucose (mg/dL) 179 H (75-99) mg/dL RBC Folate (280 - 791) ng/mL 11/15/16 Range/Units 11:14 WBC (3.8-10.6) k/uL RBC (4.30-5.90) m/uL Hgb (13.0-17.5) gm/dL Hct (39.0-53.0) % Plt Count (150-450) k/uL Neutrophils # (Manual) (1.3-7.7) k/uL Chloride (98-107) mmol/L Carbon Dioxide (22-30) mmol/L Creatinine (0.66-1.25) mg/dL Glucose (74-99) mg/dL POC Glucose (mg/dL) 227 H (75-99) mg/dL RBC Folate (280 - 791) ng/mL Assessment and Plan (1) Enteritis Narrative/Plan: Continue full liquid diet. We'll advance to soft diet tomorrow. Repeat lab work tomorrow. Continue hematology evaluation. Status: Acute
[2016-11-15 17:07] LABS: Glucose,Whole Blood 128 mg/dL (75-99)
[2016-11-15 20:05] LABS: Glucose,Whole Blood 146 mg/dL (75-99)
[2016-11-15] MEDS: INSULIN GLARGINE 100 UNIT/ML 10 ML VIAL SQ SCH (20:55)
[2016-11-15] MEDS: ATORVASTATIN 10 MG TAB PO SCH (20:59)
[2016-11-16] MEDS: AMPICILLIN-SULBACTAM 3 GM in SODIUM CHLORIDE 0.9% 100 ML IVPB SCH ×3 (00:36→17:01)
[2016-11-16] MEDS: metroNIDAZOLE-NS PMX 500 MG in SALINE 1 100ML.BAG IVPB SCH ×4 (01:40→23:37)
[2016-11-16] MEDS: SODIUM CHLORIDE 0.9% 1,000 ML IV SCH ×2 (06:13→15:36)
[2016-11-16 06:55] LABS: Glucose,Whole Blood 141 mg/dL (75-99)
[2016-11-16] MEDS: INSULIN LISPRO (humaLOG) 300 UNIT/3 ML VIAL SQ SCH ×7 (07:27→20:52)
[2016-11-16] MEDS: PANTOPRAZOLE 40 MG TABLET PO SCH (07:27)
[2016-11-16] MEDS: amLODIPine 5 MG TAB PO SCH (07:27)
[2016-11-16 07:38] LABS: Basophils % (A) 1 %; CH 30.9; CHCM 32.3; Eosinophils % (A) 0 %; HCT 30.6 % (39.0-53.0); HDW 2.65; HGB 9.7 gm/dL (13.0-17.5); Luc # (Auto) 0.19; Luc % (Auto) 4; Lymphocytes # (A) 1.2 k/uL (1.0-4.8); Lymphocytes % (A) 27 %; MCH 30.6 pg (25.0-35.0); MCHC 31.7 g/dL (31.0-37.0); MCV 96.5 fL (80.0-100.0); Monocytes # (A) 0.1 k/uL (0-1.0); Monocytes % (A) 3 %; Neutrophils # (A) 2.9 k/uL (1.3-7.7); Neutrophils % (A) 65 %; RBC 3.17 m/uL (4.30-5.90); RDW 14.4 % (11.5-15.5); WBC 4.5 k/uL (3.8-10.6); WBC (Perox) 4.83
[2016-11-16 07:47] LABS: Calcium 9.8 mg/dL (8.4-10.2); Potassium 4.2 mmol/L (3.5-5.1)
[2016-11-16] MEDS: FILGRASTIM-SNDZ 480 MCG/0.8 ML SYRINGE SQ SCH (09:35)
[2016-11-16 11:33] LABS: Glucose,Whole Blood 168 mg/dL (75-99)
--- NOTE | 2016-11-16 13:31 | P.PN ---
Subjective Principal diagnosis: Enteritis Patient is an 86-year-old white male admitted with complaints of abdominal pain with evidence of partial small bowel obstruction suspect secondary to terminal ileitis. Patient also with evidence of patchy pneumonia or atelectasis in the posterior lung base per x-ray on admission. Admission labs with evidence of pancytopenia. Dr. Hall from surgical service and hematology is following patient during hospital stay. Patient is sitting up in a chair. Patient complains of some abdominal cramping. Denies chills, nausea, vomiting, shortness of breath, or chest pain. Patient is tolerating a soft diet but states he gets full quickly. Patient reports flatus but no bowel movements this morning. Urine output adequate. Afebrile. Hemodynamically stable. WBC increased to 4.5 from 1.9 yesterday. Platelets 33 today. Objective - Vital Signs Vital signs: Vital Signs Temp 97.5 F L 11/16/16 07:00 Pulse 97 11/16/16 07:00 Resp 16 11/16/16 07:00 BP 148/70 11/16/16 07:00 Pulse Ox 95 11/16/16 07:00 Intake & Output 11/15/16 11/16/16 11/16/16 18:59 06:59 18:59 Intake Total 800 1590 Output Total 1300 Balance 800 290 Weight 85.275 kg Intake: IV 800 900 Ampicillin-Sulbactam 3 gm 100 100 In Sodium Chloride 0.9% 100 ml @ 100 mls/hr IVPB Q12HR [facility] Rx#:[id number] Sodium Chloride 0.9% 1, 600 700 000 ml @ 100 mls/hr IV . Q10H [facility] Rx#:[id number] metroNIDAZOLE-NS PMX 500 100 100 mg In Saline 1 100ml.bag @ 100 mls/hr IVPB Q8HR [facility] Rx#:[id number] Oral 690 Output: Urine 1300 Uretheral (Espinal) 1300 Other: Voiding Method Indwelling Catheter Indwelling Catheter Indwelling Catheter - Exam GENERAL: Pt awake and alert, sitting up in a chair, in no acute distress. HEAD: Atraumatic, normocephalic. EYES: Pupils equal and round. Sclera anicteric, conjunctiva are normal. ENT: Moist mucous membranes. NECK:Normal range of motion, supple without lymphadenopathy or JVD. LUNGS: Breath sounds diminished to posterior lobes. No wheezes, rales, or rhonchi. HEART: Heart S1, S2, no S3 or S4. Regular rate and rhythm. No murmurs, rubs or gallops. ABDOMEN: Soft, nontender, distended, active bowel sounds, No guarding, no rebound. EXTREMITIES: 2+ peripheral pulses. No edema. No calf tenderness. NEUROLOGICAL: Pt oriented x 3. No focal deficits. PSYCH: Normal mood, normal affect. SKIN: Warm, dry, intact. Normal turgor. - Labs CBC & Chem 7: 11/16/16 07:02 11/16/16 07:02 Labs: Abnormal Lab Results - Last 24 Hours (Table) 11/14/16 11/15/16 11/15/16 Range/Units 06:02 17:04 19:58 RBC (4.30-5.90) m/uL Hgb (13.0-17.5) gm/dL Hct (39.0-53.0) % Plt Count (150-450) k/uL Chloride (98-107) mmol/L Creatinine (0.66-1.25) mg/dL Glucose (74-99) mg/dL POC Glucose (mg/dL) 128 H 146 H (75-99) mg/dL RBC Folate 840 H (280 - 791) ng/mL Free [place] LC, Quant 3.22 H (0.33 - 1.94) mg/dL Free [place]ambda LC, Quant 2.85 H (0.57 - 2.63) mg/dL 11/16/16 11/16/16 11/16/16 Range/Units 06:53 07:02 07:02 RBC 3.17 L (4.30-5.90) m/uL Hgb 9.7 L (13.0-17.5) gm/dL Hct 30.6 L (39.0-53.0) % Plt Count 33 L* (150-450) k/uL Chloride 111 H (98-107) mmol/L Creatinine 1.41 H (0.66-1.25) mg/dL Glucose 138 H (74-99) mg/dL POC Glucose (mg/dL) 141 H (75-99) mg/dL RBC Folate (280 - 791) ng/mL Free [place] LC, Quant (0.33 - 1.94) mg/dL Free Lambda LC, Quant (0.57 - 2.63) mg/dL 11/16/16 Range/Units 11:31 RBC (4.30-5.90) m/uL Hgb (13.0-17.5) gm/dL Hct (39.0-53.0) % Plt Count (150-450) k/uL Chloride (98-107) mmol/L Creatinine (0.66-1.25) mg/dL Glucose (74-99) mg/dL POC Glucose (mg/dL) 168 H (75-99) mg/dL RBC Folate (280 - 791) ng/mL Free [place] LC, Quant (0.33 - 1.94) mg/dL Free Lambda LC, Quant (0.57 - 2.63) mg/dL Assessment and Plan Plan: Impression and plan: 1. Abdominal pain suspect secondary to enteritis, improved. Surgical consult in place, recommendations noted. Diet has been advanced to soft diet. Continue IV antibiotics. Continue IV hydration. 2. Rule out patchy pneumonia versus atelectasis with subsegmental linear changes at the left lung base and right perihilar region, favor atelectasis. Continue incentive spirometry for patient to use 10 times an hour while awake. 3. Pancytopenia. WBC increased to 4.5 hemoglobin 9.7, platelets decreased to 33 from 34. Consult requested for hematology service, recommendations noted. Patient did get one dose of Zarxio. 4. Anemia, normocytic. 6. Increased creatinine with possible acute on chronic kidney disease. Creatinine improved to 1.41. We'll hold lisinopril and metformin. Continue IV hydration. 7. Chronic kidney disease, stage III. 8. Increased random blood sugar, present on admission. 9. Possible urinary tract infection, ruled out. Final urine culture negative. 10. Diabetes mellitus type 2. Hemoglobin A1c 7.3. Blood sugars elevated. Will start patient on Lantus protocol. 11. Hypertension. Continue Norvasc. 12. Hyperlipidemia. Continue Lipitor. 13. Macular degeneration. 14. History of bowel resection. 15. History of cholecystectomy. 16. History of orthopedic surgery. Continue to monitor patient. Continue current medications. Continue supportive treatment and pain management. Continue GI and DVT prophylaxis. Continue empiric antibiotics. Continue to follow with surgery and hematology. Repeat CBC and BMP in a.m. The above impression and plan have been discussed and directed by Dr. Burnette. Ponce LE acting as scribe for Dr. Burnette.
[2016-11-16] MEDS ORDERED: BISACODYL 10 MG SUPP RECTAL STA (14:18)
[2016-11-16 16:36] LABS: Glucose,Whole Blood 141 mg/dL (75-99)
[2016-11-16] MEDS ORDERED: RX INFO: IV CONTRAST WAS GIVEN 1 EACH MISC MISCELLANE PRN (17:20)
--- NOTE | 2016-11-16 17:22 | P.PN ---
Subjective Principal diagnosis: Enteritis Patient had been doing better. Pain had resolved and he ate most of his trayl yesterday evening and this morning. Starting earlier today after breakfast however he experienced increased nausea and some abdominal pain. Pain is mostly lower abdomen. He did have a small bowel movement earlier today and is passed flatus. He tried a suppository with no additional success. His labs are slightly improved today. Objective - Vital Signs Vital signs: Vital Signs Temp 97.7 F 11/16/16 15:59 Pulse 92 11/16/16 15:59 Resp 22 11/16/16 15:59 BP 149/66 11/16/16 15:59 Pulse Ox 97 11/16/16 15:00 Intake & Output 11/15/16 11/16/16 11/16/16 18:59 06:59 18:59 Intake Total 800 1590 Output Total 1300 900 Balance 800 290 -900 Weight 85.275 kg Intake: IV 800 900 Ampicillin-Sulbactam 3 gm 100 100 In Sodium Chloride 0.9% 100 ml @ 100 mls/hr IVPB Q12HR [facility] Rx#:[id number] Sodium Chloride 0.9% 1, 600 700 000 ml @ 100 mls/hr IV . Q10H [facility] Rx#:[id number] metroNIDAZOLE-NS PMX 500 100 100 mg In Saline 1 100ml.bag @ 100 mls/hr IVPB Q8HR [facility] Rx#:[id number] Oral 690 Output: Urine 1300 900 Uretheral (Espinal) 1300 Other: Voiding Method Indwelling Catheter Indwelling Catheter Indwelling Catheter # Bowel Movements 1 - Exam Abdomen: Soft, minimally distended, mild lower abdominal tenderness - Labs CBC & Chem 7: 11/16/16 07:02 11/16/16 07:02 Labs: Abnormal Lab Results - Last 24 Hours (Table) 11/14/16 11/15/16 11/16/16 Range/Units 07:09 19:58 06:53 RBC (4.30-5.90) m/uL Hgb (13.0-17.5) gm/dL Hct (39.0-53.0) % Plt Count (150-450) k/uL Chloride (98-107) mmol/L Creatinine (0.66-1.25) mg/dL Glucose (74-99) mg/dL POC Glucose (mg/dL) 146 H 141 H (75-99) mg/dL Total Protein (PEP) 5.0 L (6.2-8.2) g/dL Albumin (PEP) 3.47 L (3.80-4.90) g/dL Jfwpd-[id number]-Vfnwesuzp 0.37 L (0.60-1.00) g/dL Beta Globulins 0.48 L (0.60-1.30) g/dL Gamma Globulins 0.53 L (0.70-1.50) g/dL 11/16/16 11/16/16 11/16/16 Range/Units 07:02 07:02 11:31 RBC 3.17 L (4.30-5.90) m/uL Hgb 9.7 L (13.0-17.5) gm/dL Hct 30.6 L (39.0-53.0) % Plt Count 33 L* (150-450) k/uL Chloride 111 H (98-107) mmol/L Creatinine 1.41 H (0.66-1.25) mg/dL Glucose 138 H (74-99) mg/dL POC Glucose (mg/dL) 168 H (75-99) mg/dL Total Protein (PEP) (6.2-8.2) g/dL Albumin (PEP) (3.80-4.90) g/dL Vgivr-5-Kiwqoporb (0.60-1.00) g/dL Beta Globulins (0.60-1.30) g/dL Gamma Globulins (0.70-1.50) g/dL 11/16/16 Range/Units 16:34 RBC (4.30-5.90) m/uL Hgb (13.0-17.5) gm/dL Hct (39.0-53.0) % Plt Count (150-450) k/uL Chloride (98-107) mmol/L Creatinine (0.66-1.25) mg/dL Glucose (74-99) mg/dL POC Glucose (mg/dL) 141 H (75-99) mg/dL Total Protein (PEP) (6.2-8.2) g/dL Albumin (PEP) (3.80-4.90) g/dL Jeoxc-3-Fbharfqjw (0.60-1.00) g/dL Beta Globulins (0.60-1.30) g/dL Gamma Globulins (0.70-1.50) g/dL Assessment and Plan (1) Enteritis Narrative/Plan: We'll repeat CT abdomen at this time. Continue IV antibiotics. Status: Acute
[2016-11-16] MEDS: IOHEXOL 350 MG/ML 25 ML BOTTLE (ORAL USE) PO PRN ×2 (17:32→18:36)
[2016-11-16 20:39] LABS: Glucose,Whole Blood 142 mg/dL (75-99)
[2016-11-16] MEDS: INSULIN GLARGINE 100 UNIT/ML 10 ML VIAL SQ SCH (20:49)
[2016-11-16] MEDS: ATORVASTATIN 10 MG TAB PO SCH (20:49)
--- NOTE | 2016-11-16 23:04 | CT ---
EXAMINATION TYPE: CT abdomen pelvis wo con DATE OF EXAM: 11/16/2016 7:16 PM COMPARISON: November 10, 2016 HISTORY: Follow-up enteritis. CT DLP: 901.60 mGycm. Automated exposure control for dose reduction was used. TECHNIQUE: Helical acquisition of images was performed from the lung bases through the pelvis. FINDINGS: There is a new pleural effusion on the right which is moderate in size, there is partial airlessness of the right lower lobe, likely passive atelectasis. On the left, there is stable-appearing scan of p leural effusion. Partial left lower lobe airlessness, likely passive atelectasis. Distal ileal mural thickening is very impressive, but it appears only mildly progressed when compared to the previous study. Pertinent negatives include no bowel obstruction, no pneumatosis, and no pneu moperitoneum. No drainable fluid collections within the abdomen or pelvis - but there is now a mild-p leonel volume of simple-appearing/freely-flowing bilateral paracolic gutter and perihepatic/perisplenic peritoneal fluid. The left lower quadrant anteriorly there is circumferential mural thickening and indistinctness to th e distal descending colon which is mildly more impressive than the prior study. Immediately superoanterior to the urinary bladder there is a 3 cm triangular shaped zone of fluid att enuation with tiny gas bubbles seen within -relationship with the urinary bladder is not visualized. With follow-up CT, the Espinal catheter could be opacified with contrast to demonstrate the relationshi p of the urinary bladder with this finding related to the expected position of an urachus. IMPRESSION: OVERALL MILD INTERVAL PROGRESSION OF THE FINDINGS WHEN COMPARED TO THE PRIOR STUDY WITH NEW RIGHT PLE URAL EFFUSION, INCREASING PERITONEAL FLUID, INCREASING TERMINAL ILEITIS, DISTAL DESCENDING COLITIS, A ND 3 CM FLUID GAS COLLECTION SUPEROANTERIOR TO THE URINARY BLADDER DISCUSSED.
[2016-11-17] MEDS: AMPICILLIN-SULBACTAM 3 GM in SODIUM CHLORIDE 0.9% 100 ML IVPB SCH ×3 (00:54→17:59)
[2016-11-17] MEDS: SODIUM CHLORIDE 0.9% 1,000 ML IV SCH ×3 (06:04→21:22)
[2016-11-17 06:46] LABS: Glucose,Whole Blood 124 mg/dL (75-99)
[2016-11-17 07:42] LABS: Basophils % (A) 1 %; CH 30.9; CHCM 32.1; Eosinophils % (A) 0 %; HCT 31.1 % (39.0-53.0); HDW 2.63; HGB 9.9 gm/dL (13.0-17.5); Luc # (Auto) 0.19; Luc % (Auto) 4; Lymphocytes # (A) 1.2 k/uL (1.0-4.8); Lymphocytes % (A) 21 %; MCH 30.9 pg (25.0-35.0); MCHC 31.8 g/dL (31.0-37.0); MCV 96.9 fL (80.0-100.0); Mean Platelet Volume 11.7; Monocytes # (A) 0.2 k/uL (0-1.0); Monocytes % (A) 3 %; Neutrophils % (A) 72 %; RBC 3.21 m/uL (4.30-5.90); RDW 14.6 % (11.5-15.5); WBC 5.6 k/uL (3.8-10.6)
[2016-11-17 08:08] LABS: Calcium 9.6 mg/dL (8.4-10.2); Potassium 4.2 mmol/L (3.5-5.1)
[2016-11-17] MEDS: INSULIN LISPRO (humaLOG) 300 UNIT/3 ML VIAL SQ SCH ×7 (10:04→21:03)
[2016-11-17] MEDS: metroNIDAZOLE-NS PMX 500 MG in SALINE 1 100ML.BAG IVPB SCH ×3 (10:05→23:35)
[2016-11-17] MEDS: PANTOPRAZOLE 40 MG TABLET PO SCH (10:05)
[2016-11-17] MEDS: amLODIPine 5 MG TAB PO SCH (10:08)
[2016-11-17 11:40] LABS: Glucose,Whole Blood 121 mg/dL (75-99)
--- NOTE | 2016-11-17 12:23 | P.PN ---
Progress Note - Text The patient has some complaints of abdominal pain. He has also had some mild nausea. On exam his vital signs appear stable. His abdomen is soft mildly distended. There is some right-sided abdominal pain. There is no rebound or guarding. Resolving ileitis. Patient will be observed. If he has significant pain or nausea we may perform a repeat CAT scan.
[2016-11-17 16:24] LABS: Glucose,Whole Blood 95 mg/dL (75-99)
[2016-11-17 20:31] LABS: Glucose,Whole Blood 112 mg/dL (75-99)
[2016-11-17] MEDS: INSULIN GLARGINE 100 UNIT/ML 10 ML VIAL SQ SCH (21:07)
[2016-11-17] MEDS: ATORVASTATIN 10 MG TAB PO SCH (21:07)
--- NOTE | 2016-11-17 21:32 | PN ---
Mr. Zuniga is an 86-year-old male with past medical history of hypertension, diabetes mellitus, hyperlipidemia, admitted to the hospital with a chief complaint of abdominal pain. The patient was having evidence of partial small bowel obstruction and that is suspected secondary to terminal ileitis. Patient is being managed conservatively by surgical services. Patient is lying in bed today, states that his belly still hurts. He has not passed any gas and he also has mild difficulty in breathing because he thinks fullness in his stomach is affecting his breathing. The patient denies having any fever, chills, or rigors but states that it is extremely difficult for him dealing with this abdominal discomfort. Patient is able to tolerate food without any nausea or vomiting, but he has had only a few bites. Surgical services, Dr. Urias has seen the patient and is managing the patient conservatively. On examination, patient's vital signs temperature 97.1, heart rate 90 to 110, respiratory rate 16, blood pressure 157/73, saturating 94% on room air. GENERAL EXAMINATION: Elderly male lying in bed, appears to be in no acute distress. Head is atraumatic, normocephalic. Eyes pupils equal, round and reactive to light. CARDIAC: S1, S2 heard. LUNGS: Slightly diminished at the lower lung bases. CARDIAC: S1, S2 heard. ABDOMEN: Distended, soft, mild tenderness. Hypoactive bowel sounds. EXTREMITIES: No edema. No cyanosis. A few hyperpigmented patches seen. ELEPHANT KEEPER: Alert, awake, oriented x3. No focal deficits. Psych: Appropriate mood and affect. SKIN: No rashes. Patient's labs: White count of 5.6, hemoglobin 9.9, platelets of 32, sodium 142, potassium 4.2, chloride 111, bicarb 24, BUN 12, creatinine 1.46. ASSESSMENT AND PLAN: 1. Abdominal pain secondary to partial small bowel obstruction and secondary to terminal ileitis. 2. Rule out patchy pneumonia with ( ). Continue the patient on incentive spirometry. 3. Pancytopenia, hematology on board and differentials being early low grade myelodysplasia. 4. Acute kidney injury, most likely prerenal, creatinine improving with IV hydration. We will hold off nephrotoxins which are Lisinopril and Metformin. 5. Chronic kidney disease stage IIIa. 6. Type 2 diabetes mellitus. Hemoglobin A1c of 7.3. Continue with Lantus and sliding scale of insulin. 7. Hypertension. 8. Hyperlipidemia. 9. History of bowel resection. 10. History of cholecystectomy. 11. History of orthopedic surgery. PLAN: Plan is to continue the patient with conservative management. Continue him on the antibiotics in the form of Unasyn and Flagyl. Patient has platelet count of 32 so poor surgical candidate. Overall prognosis is guarded with chronic medical conditions and further recommendations to follow depending on the progress of the patient. ARTURO
[2016-11-17 22:03] LABS: Calcium 9.5 mg/dL (8.4-10.2); Total Protein 4.7 g/dL (6.3-8.2)
[2016-11-17 22:04] LABS: INR 1.8 (<1.1); Partial Thromboplastin Time 26.4 sec (22.0-30.0); Prothrombin Time 17.3 sec (9.0-12.0)
[2016-11-17 22:05] LABS: Basophils % (A) 1 %; CH 31.2; CHCM 32.2; Eosinophils % (A) 0 %; HDW 2.62; Luc # (Auto) 0.16; Luc % (Auto) 4; Lymphocytes # (A) 0.8 k/uL (1.0-4.8); Lymphocytes % (A) 23 %; MCH 31.5 pg (25.0-35.0); MCHC 32.3 g/dL (31.0-37.0); MCV 97.6 fL (80.0-100.0); Mean Platelet Volume 11.2; Monocytes # (A) 0.1 k/uL (0-1.0); Monocytes % (A) 3 %; Neutrophils # (A) 2.5 k/uL (1.3-7.7); Neutrophils % (A) 69 %; RBC 3.17 m/uL (4.30-5.90); RDW 14.7 % (11.5-15.5); WBC 3.7 k/uL (3.8-10.6); WBC (Perox) 3.64
[2016-11-18] MEDS: AMPICILLIN-SULBACTAM 3 GM in SODIUM CHLORIDE 0.9% 100 ML IVPB SCH ×4 (00:46→23:09)
[2016-11-18 06:53] LABS: Glucose,Whole Blood 109 mg/dL (75-99)
[2016-11-18 07:32] LABS: Aty Lym Flag Slight; CHCM 32.3; HDW 2.65; HGB 9.5 gm/dL (13.0-17.5); MCH 30.6 pg (25.0-35.0); MCHC 31.6 g/dL (31.0-37.0); MCV 96.8 fL (80.0-100.0); Mean Platelet Volume 11.1; RDW 14.9 % (11.5-15.5); WBC 3.2 k/uL (3.8-10.6); WBC (Perox) 3.11
[2016-11-18 08:02] LABS: Calcium 9.3 mg/dL (8.4-10.2)
--- NOTE | 2016-11-18 08:09 | P.PN ---
Subjective Principal diagnosis: Enteritis Patient was kept nothing by mouth after midnight in the event that surgery was decided upon today. He says he feels much better today. Denies abdominal pain at present. He said he had a large bowel movement last night and believes at this is the reason behind him feeling better at this time. No nausea or vomiting. He is more of an appetite this morning. His lab work shows a white blood cell count 3.7. Platelets 39. INR 1.8. Denies rectal bleeding or melena. Objective - Vital Signs Vital signs: Vital Signs Temp 97.6 F 11/18/16 07:00 Pulse 109 H 11/18/16 07:00 Resp 16 11/18/16 07:00 BP 141/63 11/18/16 07:00 Pulse Ox 93 L 11/18/16 07:00 Intake & Output 11/17/16 11/18/16 11/18/16 18:59 06:59 18:59 Intake Total 590 1150 Output Total 850 450 Balance -260 700 Weight 85.275 kg Intake: IV 1050 Sodium Chloride 0.9% 1, 950 000 ml @ 100 mls/hr IV . Q10H [facility] Rx#:[id number] metroNIDAZOLE-NS PMX 500 100 mg In Saline 1 100ml.bag @ 100 mls/hr IVPB Q8HR [facility] Rx#:[id number] Intake, IV Titration 100 Amount Ampicillin-Sulbactam 3 gm 100 In Sodium Chloride 0.9% 100 ml @ 100 mls/hr IVPB Q8HR [facility] Rx#:[id number] Oral 590 Output: Urine 850 450 Uretheral (Espinal) 300 Other: Voiding Method Indwelling Catheter Indwelling Catheter - Exam Abdomen: Soft, subtly distended, minimal right lower quadrant tenderness, no rebound or guarding - Labs CBC & Chem 7: 11/18/16 06:44 11/17/16 21:38 Labs: Abnormal Lab Results - Last 24 Hours (Table) 11/17/16 11/17/16 11/17/16 Range/Units 07:18 11:39 20:28 WBC (3.8-10.6) k/uL RBC (4.30-5.90) m/uL Hgb (13.0-17.5) gm/dL Hct (39.0-53.0) % Plt Count (150-450) k/uL Lymphocytes # (1.0-4.8) k/uL PT (9.0-12.0) sec Chloride 111 H (98-107) mmol/L Creatinine 1.46 H (0.66-1.25) mg/dL Glucose 126 H (74-99) mg/dL POC Glucose (mg/dL) 121 H 112 H (75-99) mg/dL Total Protein (6.3-8.2) g/dL Albumin (3.5-5.0) g/dL 11/17/16 11/17/16 11/17/16 Range/Units 21:38 21:38 21:38 WBC 3.7 L (3.8-10.6) k/uL RBC 3.17 L (4.30-5.90) m/uL Hgb 10.0 L (13.0-17.5) gm/dL Hct 31.0 L (39.0-53.0) % Plt Count 39 L* (150-450) k/uL Lymphocytes # 0.8 L (1.0-4.8) k/uL PT 17.3 H (9.0-12.0) sec Chloride 111 H (98-107) mmol/L Creatinine 1.46 H (0.66-1.25) mg/dL Glucose 112 H (74-99) mg/dL POC Glucose (mg/dL) (75-99) mg/dL Total Protein 4.7 L (6.3-8.2) g/dL Albumin 2.7 L (3.5-5.0) g/dL 11/18/16 11/18/16 Range/Units 06:44 06:51 WBC 3.2 L (3.8-10.6) k/uL RBC 3.10 L (4.30-5.90) m/uL Hgb 9.5 L (13.0-17.5) gm/dL Hct 30.0 L (39.0-53.0) % Plt Count 30 L* (150-450) k/uL Lymphocytes # (1.0-4.8) k/uL PT (9.0-12.0) sec Chloride (98-107) mmol/L Creatinine (0.66-1.25) mg/dL Glucose (74-99) mg/dL POC Glucose (mg/dL) 109 H (75-99) mg/dL Total Protein (6.3-8.2) g/dL Albumin (3.5-5.0) g/dL Assessment and Plan (1) Enteritis Narrative/Plan: Had a long discussion with the patient and his family at the bedside this morning. Most of the patient's children and in-laws were present. I described to them the decision-making from his admission until now. The patient over the last 48 hours had been feeling worse and seemed to be regressing clinically. For that reason a CAT scan was performed on Saturday evening. The CAT scan shows persistent inflammatory changes of the ileum. There is now more identifiable thickening of portions of the colon as well. There is more free fluid within the abdomen. There is a small collection of gas bubbles at the apex of the bladder unclear whether this is intravesical or not. We discussed the options of exploratory laparotomy. We discussed the associated risks with that surgery as well. The etiologies that we are entertaining including infectious, inflammatory, ischemic, and malignant were all reviewed. The patient apparently does have a grand daughter with ulcerative colitis. We discussed the option since the patient is doing better today of GI consultation with a short trial of steroids. That option was chosen. We will continue to monitor this patient closely. If the patient does not improve as expected or regresses again and everybody is in agreement that exploratory laparotomy will take place. We'll notify Dr. Burnette of this plan. Status: Acute
[2016-11-18] MEDS: SODIUM CHLORIDE 0.9% 1,000 ML IV SCH ×4 (08:11→23:12)
[2016-11-18] MEDS: INSULIN LISPRO (humaLOG) 300 UNIT/3 ML VIAL SQ SCH ×7 (08:12→20:49)
[2016-11-18 08:49] LABS: Add Differential Manual Differential
[2016-11-18 08:53] LABS: Metamyelocytes % 0.5 %; Nucleated Red Blood Cells 0 /100 WBC (0-0); Polychromasia Present; Total Cells Counted 200
[2016-11-18] MEDS: metroNIDAZOLE-NS PMX 500 MG in SALINE 1 100ML.BAG IVPB SCH ×2 (08:58→16:39)
[2016-11-18] MEDS: amLODIPine 5 MG TAB PO SCH (08:59)
[2016-11-18] MEDS: PANTOPRAZOLE 40 MG TABLET PO SCH (08:59)
[2016-11-18 11:02] LABS: Glucose,Whole Blood 90 mg/dL (75-99)
--- NOTE | 2016-11-18 12:52 | P.PN ---
Subjective Principal diagnosis: Pancytopenia. Enteritis/colitis The patient overall feels better. He is tolerating liquids. Abdominal distention as well as discomfort is improved. No obvious bleeding noted Objective - Vital Signs Vital signs: Vital Signs Temp 97.6 F 11/18/16 07:00 Pulse 109 H 11/18/16 07:00 Resp 16 11/18/16 07:00 BP 141/63 11/18/16 07:00 Pulse Ox 93 L 11/18/16 07:00 Intake & Output 11/17/16 11/18/16 11/18/16 18:59 06:59 18:59 Intake Total 590 1150 Output Total 850 450 300 Balance -260 700 -300 Weight 85.275 kg Intake: IV 1050 Sodium Chloride 0.9% 1, 950 000 ml @ 100 mls/hr IV . Q10H [facility] Rx#:[id number] metroNIDAZOLE-NS PMX 500 100 mg In Saline 1 100ml.bag @ 100 mls/hr IVPB Q8HR [facility] Rx#:[id number] Intake, IV Titration 100 Amount Ampicillin-Sulbactam 3 gm 100 In Sodium Chloride 0.9% 100 ml @ 100 mls/hr IVPB Q8HR [facility] Rx#:[id number] Oral 590 Output: Urine 850 450 300 Uretheral (Espinal) 300 300 Other: Voiding Method Indwelling Catheter Indwelling Catheter Indwelling Catheter - Constitutional General appearance: Present: no acute distress - EENT Eyes: Present: EOMI, PERRLA ENT: Present: normal oropharynx - Respiratory Respiratory: bilateral: CTA - Cardiovascular Rhythm: regular Heart sounds: normal: S1, S2 - Gastrointestinal General gastrointestinal: Present: distended, normal bowel sounds, soft - Integumentary Integumentary: Present: normal - Neurologic Neurologic: Present: CNII-XII intact - Musculoskeletal Musculoskeletal: Present: generalized weakness, strength equal bilaterally - Psychiatric Psychiatric: Present: A&O x's 3 - Labs CBC & Chem 7: 11/18/16 06:44 11/18/16 06:44 Labs: Abnormal Lab Results - Last 24 Hours (Table) 11/17/16 11/17/16 11/17/16 Range/Units 20:28 21:38 21:38 WBC 3.7 L (3.8-10.6) k/uL RBC 3.17 L (4.30-5.90) m/uL Hgb 10.0 L (13.0-17.5) gm/dL Hct 31.0 L (39.0-53.0) % Plt Count 39 L* (150-450) k/uL Lymphocytes # 0.8 L (1.0-4.8) k/uL Lymphocytes # (Manual) (1.0-4.8) k/uL PT 17.3 H (9.0-12.0) sec Chloride (98-107) mmol/L Carbon Dioxide (22-30) mmol/L Creatinine (0.66-1.25) mg/dL Glucose (74-99) mg/dL POC Glucose (mg/dL) 112 H (75-99) mg/dL Total Protein (6.3-8.2) g/dL Albumin (3.5-5.0) g/dL 11/17/16 11/18/16 11/18/16 Range/Units 21:38 06:44 06:44 WBC 3.2 L (3.8-10.6) k/uL RBC 3.10 L (4.30-5.90) m/uL Hgb 9.5 L (13.0-17.5) gm/dL Hct 30.0 L (39.0-53.0) % Plt Count 30 L* (150-450) k/uL Lymphocytes # (1.0-4.8) k/uL Lymphocytes # (Manual) 0.9 L (1.0-4.8) k/uL PT (9.0-12.0) sec Chloride 111 H 112 H (98-107) mmol/L Carbon Dioxide 21 L (22-30) mmol/L Creatinine 1.46 H 1.55 H (0.66-1.25) mg/dL Glucose 112 H 111 H (74-99) mg/dL POC Glucose (mg/dL) (75-99) mg/dL Total Protein 4.7 L (6.3-8.2) g/dL Albumin 2.7 L (3.5-5.0) g/dL 11/18/16 Range/Units 06:51 WBC (3.8-10.6) k/uL RBC (4.30-5.90) m/uL Hgb (13.0-17.5) gm/dL Hct (39.0-53.0) % Plt Count (150-450) k/uL Lymphocytes # (1.0-4.8) k/uL Lymphocytes # (Manual) (1.0-4.8) k/uL PT (9.0-12.0) sec Chloride (98-107) mmol/L Carbon Dioxide (22-30) mmol/L Creatinine (0.66-1.25) mg/dL Glucose (74-99) mg/dL POC Glucose (mg/dL) 109 H (75-99) mg/dL Total Protein (6.3-8.2) g/dL Albumin (3.5-5.0) g/dL Assessment and Plan (1) Pancytopenia Narrative/Plan: The patient's hemoglobin has stabilized. White count also improved with growth factors which was subsequently stopped. A slight drop has been noted subsequently with the stabilization over the last 24 hours. White count is in a safe range. The platelets are continue the slow decline and are at 30,000 today with no evidence of any obvious bleeding. Pancytopenia labs were negative. At this time it is felt that the patient likely has an underlying myelodysplasia, with further drop in blood counts due to the added stress of inflammation from his ongoing presentation. At this time continue to monitor counts with further supplementation if needed. If the patient needs surgery, we would recommend platelet transfusion just prior to/at the time of surgery. Status: Acute (2) Coagulopathy Narrative/Plan: The patient's INR was 1.8. Most likely this is due to decreased vitamin K, related to his GI issues. I will give her a dose of vitamin K. Coags will be repeated, along with fibrinogen Status: Acute
[2016-11-18] MEDS ORDERED: PHYTONADIONE 5 MG in SODIUM CHLORIDE 0.9% 50 ML IVPB STA (12:53)
[2016-11-18 17:26] LABS: Glucose,Whole Blood 119 mg/dL (75-99)
[2016-11-18 20:33] LABS: Glucose,Whole Blood 101 mg/dL (75-99)
[2016-11-18] MEDS: INSULIN GLARGINE 100 UNIT/ML 10 ML VIAL SQ SCH (20:50)
[2016-11-18] MEDS: ATORVASTATIN 10 MG TAB PO SCH (20:50)
[2016-11-19] MEDS: metroNIDAZOLE-NS PMX 500 MG in SALINE 1 100ML.BAG IVPB SCH ×4 (00:31→23:18)
--- NOTE | 2016-11-19 02:31 | P.CONS ---
History of Present Illness - Reason for Consult Consult date: 11/18/[address] of the abdomen - History of Present Illness The patient is an 86-year old male who was admitted 11/10/2016 with abdominal pain and constipation. CT of the abdomen showed thickening of the terminal ileum and the patient has responded gradually to supportive care and antibiotics with the working diagnosis of ileitis and partial SBO secondary to inflammation of TI. The patient had repeat CT 11/16/2016 that showed some progression of the thickening of TI and new thickening in descending colon and slight amount of intraperitoneal fluid. The patienthas been feeling better and a possible exploration which was tentatively planned for today is on hold. We are asked to see him for the possibility of IBD and consideration of steroids. The patient is tolerating his diet and had a good bowel movement the night before. No nausea or vomiting. 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 Had colonoscopy [facility] at that time. Patient was noted to have pancytopenia, myelodysplasia is the likely etiology as per hematology. Grand daughter gets treatment for colitis. 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, left hip replacement Past Anesthesia/Blood Transfusion Reactions: No Reported Reaction Past Psychological History: No Psychological Hx Reported Smoking Status: Former smoker Past Alcohol Use History: None Reported Past Drug Use History: None Reported - Past Family History Father Additional Family Medical History / Comment(s): at 55, sudden cardiac issue Mother Additional Family Medical History / Comment(s): dies at 55, abd cancer Medications and Allergies Home Medications Medication Instructions Recorded Confirmed Type ALPRAZolam [Xanax] 0.25 mg PO TID PRN 06/30/14 11/10/16 History Simvastatin [Zocor] 20 mg PO HS 06/30/14 11/10/16 History metFORMIN HCL 1,000 mg PO BID 06/30/14 11/10/16 History Acetaminophen-Codeine 300-30mg 1 tab PO TID PRN 11/10/16 11/10/16 History [Tylenol #3] Ciprofloxacin HCl [Cipro] 500 mg PO Q12HR 11/10/16 11/10/16 History Glimepiride [Amaryl] 2 mg PO BID 11/10/16 11/10/16 History Lisinopril [Prinivil] 5 mg PO DAILY 11/10/16 11/10/16 History Allergies Allergy/AdvReac Type Severity Reaction Status Date / Time lactose AdvReac Mild Cough Verified 11/20/16 14:37 Physical Exam Vitals: Vital Signs Temp Pulse Pulse Resp BP Pulse Ox 11/18/16 22:57 98.6 F 99 24 134/62 95 11/18/16 16:15 102 H 136/70 11/18/16 15:56 96 145/75 11/18/16 15:51 56 L 138/61 11/18/16 15:00 97.1 F L 86 16 134/53 97 11/18/16 07:00 97.6 F 109 H 16 141/63 93 L Intake and Output 11/18/16 11/18/16 11/19/16 14:59 22:59 06:59 Intake Total 120 Output Total 650 300 Balance -530 -300 Intake: Oral 120 Output: Urine 650 300 Uretheral (Espinal) 300 300 Other: Voiding Method Indwelling Catheter Indwelling Catheter General appearance: The patient is alert, oriented, in no acute distress. HET: Head is normocephalic and atraumatic. Pupils are equal and reactive. Oropharynx is clear without lesions. Neck: Supple without lymphadenopathy. Trachea midline. Heart: S1 S2. Regular rate and rhythm. Lungs: No crackles or wheezes are heard. Abdomen: Soft, diffuse upper epigastric pain, nondistended with bowel sounds. No peritoneal signs. No palpable organomegaly or masses. Extremities: Normal skin color and turgor. No cyanosis, rash, ulceration, clubbing, or edema. Radial and pedal pulses are 2/4 bilaterally. Neurological: No focal deficits. Strength and sensation are grossly intact. Results CBC & Chem 7: 11/24/16 18:15 11/24/16 20:23 Labs: Abnormal Lab Results - Last 24 Hours (Table) 11/18/16 11/18/16 11/18/16 Range/Units 06:44 06:44 06:51 WBC 3.2 L (3.8-10.6) k/uL RBC 3.10 L (4.30-5.90) m/uL Hgb 9.5 L (13.0-17.5) gm/dL Hct 30.0 L (39.0-53.0) % Plt Count 30 L* (150-450) k/uL Lymphocytes # (Manual) 0.9 L (1.0-4.8) k/uL Chloride 112 H (98-107) mmol/L Carbon Dioxide 21 L (22-30) mmol/L Creatinine 1.55 H (0.66-1.25) mg/dL Glucose 111 H (74-99) mg/dL POC Glucose (mg/dL) 109 H (75-99) mg/dL 11/18/16 11/18/16 Range/Units 17:25 20:32 WBC (3.8-10.6) k/uL RBC (4.30-5.90) m/uL Hgb (13.0-17.5) gm/dL Hct (39.0-53.0) % Plt Count (150-450) k/uL Lymphocytes # (Manual) (1.0-4.8) k/uL Chloride (98-107) mmol/L Carbon Dioxide (22-30) mmol/L Creatinine (0.66-1.25) mg/dL Glucose (74-99) mg/dL POC Glucose (mg/dL) 119 H 101 H (75-99) mg/dL Assessment and Plan Plan: 86-year old male with abdominal symptoms and constipation that seems to be improving, and thickening of terminal ileum with other sign of inflammation on CT. An infectious or inflammatory etiology is likely as you have suggested. His pancytopenia would need to be addressed if endoscopy or other interventions are considered. Since he is improving, I did not schedule endoscopy at this point. I will check CBC and inflammatory markers eg SED rate, CRP and based on that will consider adding steroids and/or scheduling colonoscopy. I will discuss with you.
[2016-11-19 07:12] LABS: Aty Lym Flag Marked; CH 30.4; CHCM 31.8; HCT 30.5 % (39.0-53.0); HDW 2.57; HGB 9.9 gm/dL (13.0-17.5); MCH 31.1 pg (25.0-35.0); MCHC 32.3 g/dL (31.0-37.0); MCV 96.5 fL (80.0-100.0); Mean Platelet Volume 11.1; RBC 3.16 m/uL (4.30-5.90); WBC 2.1 k/uL (3.8-10.6); WBC (Perox) 2.09
[2016-11-19 07:21] LABS: Glucose,Whole Blood 84 mg/dL (75-99)
[2016-11-19 07:21] LABS: INR 1.7 (<1.1); Partial Thromboplastin Time 26.2 sec (22.0-30.0); Prothrombin Time 16.5 sec (9.0-12.0)
[2016-11-19 07:24] LABS: C Reactive Protein 5.4 mg/L (<10.0); Calcium 9.1 mg/dL (8.4-10.2); Potassium 3.8 mmol/L (3.5-5.1); Total Bilirubin 0.8 mg/dL (0.2-1.3); Total Protein 4.5 g/dL (6.3-8.2)
[2016-11-19 07:33] LABS: Fibrinogen <80 mg/dL (200-500)
[2016-11-19] MEDS: INSULIN LISPRO (humaLOG) 300 UNIT/3 ML VIAL SQ SCH ×7 (07:34→21:35)
[2016-11-19 08:21] LABS: Add Differential Manual Differential
[2016-11-19 08:28] LABS: Crenated RBC Present; Nucleated Red Blood Cells 2 /100 WBC (0-0); Target Cells Present; Total Cells Counted 100
[2016-11-19] MEDS: PANTOPRAZOLE 40 MG TABLET PO SCH (08:46)
[2016-11-19] MEDS: AMPICILLIN-SULBACTAM 3 GM in SODIUM CHLORIDE 0.9% 100 ML IVPB SCH (08:47)
[2016-11-19] MEDS: amLODIPine 5 MG TAB PO SCH (08:48)
[2016-11-19 09:25] LABS: Erythrocyte Sedimentation Rate 2 mm/hr (0-15)
[2016-11-19] MEDS ORDERED: PHYTONADIONE 5 MG in SODIUM CHLORIDE 0.9% 50 ML IVPB STA (09:32)
[2016-11-19] MEDS ORDERED: IPRATROPIUM-ALBUTEROL 3 ML NEB INHALATION PRN (11:36)
--- NOTE | 2016-11-19 11:56 | XR ---
EXAMINATION TYPE: XR chest 1V portable DATE OF EXAM: 11/19/2016 11:53 AM HISTORY: Shortness of breath. COMPARISON: 11/10/2016 TECHNIQUE: Single view of the chest is submitted. FINDINGS: Demonstrated are scattered senescent parenchymal change. Right basal infiltrate and/or atelectasis. Small right-sided pleural effusion. The heart is stable. Hilar and mediastinal structures are within normal limits. Degenerative changes are seen of the dorsal spine. IMPRESSION: 1. Right basal infiltrate and/or atelectasis. Small right-sided pleural effusion.
[2016-11-19 12:13] LABS: Glucose,Whole Blood 73 mg/dL (75-99)
[2016-11-19] MEDS ORDERED: PNEUMONIA PROTOCOL UTILIZED 1 EACH MISC PO PRN (12:18)
[2016-11-19] MEDS ORDERED: LEVOFLOXACIN 750MG-D5W PMX 750 MG in DEXTROSE/WATER 1 150ML.BAG IVPB SCH (13:00)
[2016-11-19] MEDS: IPRATROPIUM-ALBUTEROL 3 ML NEB INHALATION SCH ×3 (13:33→19:23)
--- NOTE | 2016-11-19 14:10 | PN ---
INTERVAL HISTORY: Mr. Zuniga is an 86-year-old gentleman with a past medical history of hypertension, diabetes mellitus, hyperlipidemia, admitted to the hospital with a chief complaint of abdominal pain. Patient has evidence of partial small bowel obstruction and also has ileitis. Patient is currently being managed conservatively. Patient states that he has been passing gas and also had a bowel movement this morning and he denies having any nausea or vomiting. Patient has pancytopenia and Dr. Garcia is on board and being monitored closely. Today, the patient is lying in bed. He states that he does not have any active complaints and after having a bowel movement, he said his abdominal discomfort has resolved to some extent. Patient denies having any chest pain, any palpitations. No difficulty in breathing. No cough, no nausea or vomiting. Denies having any or weakness of his extremities and patient's medications have been reviewed. He is on Xanax, Norvasc, Unasyn, Flagyl, Protonix, sliding scale of insulin and Zofran. Patient's vital signs, temperature 97.1, heart rate 83, respiratory rate of 16, blood pressure of 135/53, saturating at 97% on room air. On examination, patient is an elderly male, lying in bed, appears to be in no acute distress. Head is atraumatic, normocephalic. EYES: Pupils, round, and reactive to light. CARDIAC: S1, S2 heard. LUNGS: Bilateral breath sounds are positive. No wheezes or crackles. CARDIAC: S1, S2 heard. Abdomen is soft, distended, no tenderness, positive for hypoactive bowel sounds. EXTREMITIES: No edema. No cyanosis. Hyperpigmented patches seen. CHAIN MAKER LOOM CONTROL: Alert, awake, oriented x3. No focal deficits. Patient's labs: White count of 3.2, hemoglobin is 9.5, platelets of 30. Sodium 142, potassium 4, chloride 112, bicarb 21, BUN 14, creatinine 1.55. ASSESSMENT AND PLAN: 1. Abdominal pain with distention secondary to partial small bowel obstruction and abdominal ileitis. 2. Pancytopenia. 3. ( ) being low-grade myelodysplasia. 4. Patchy pneumonia versus atelectasis in the left lung base and right perihilar lesion, continue with incentive spirometry. 5. Chronic kidney disease stage III. 6. Type 2 diabetes mellitus. Hemoglobin A1c of 7.3, continue with Lantus sliding scale of insulin. 7. Hypertension. 8. Hyperlipidemia. 9. History of bowel resection. 10. History of cholecystectomy. 11. History of orthopedic surgery. PLAN: 1. The plan is to continue the patient on conservative management. Patient had a bowel movement and his abdominal distention and pain did subside. Continue antibiotics in the form of Flagyl and Unasyn for his ileitis. 2. Patient has pancytopenia and thrombocytopenia with platelets of 30, so he would be a very poor surgical candidate. Overall prognosis is guarded with chronic medical conditions. Further recommendations to follow depending on the progress of the patient.
--- NOTE | 2016-11-19 15:15 | P.PN ---
Subjective Patient is an 86-year-old white male admitted with complaints of abdominal pain with evidence of partial small bowel obstruction and ileitis. Patient also with evidence of patchy pneumonia or atelectasis in the posterior lung base per x-ray on admission. Admission labs with evidence of pancytopenia. GI service, surgical service, and hematology service are following patient. Patient is sitting up in a chair. Patient complains of intermittent sharp pain to his right lower quadrant. Denies chills, nausea, vomiting, shortness of breath, or chest pain. Patient reports flatus but no bowel movements. Urine output adequate. Afebrile. Hemodynamically stable. Objective - Vital Signs Vital signs: Vital Signs Temp 98.5 F 11/19/16 13:07 Pulse 96 11/19/16 13:07 Resp 16 11/19/16 13:07 BP 130/62 11/19/16 13:07 Pulse Ox 97 11/19/16 13:07 Intake & Output 11/18/16 11/19/16 11/19/16 18:59 06:59 18:59 Intake Total 120 1340 60 Output Total 950 700 350 Balance -830 640 -290 Intake: IV 1000 Sodium Chloride 0.9% 1, 800 000 ml @ 100 mls/hr IV . Q10H [facility] Rx#:[id number] metroNIDAZOLE-NS PMX 500 200 mg In Saline 1 100ml.bag @ 100 mls/hr IVPB Q8HR [facility] Rx#:[id number] Intake, IV Titration 100 Amount Ampicillin-Sulbactam 3 gm 100 In Sodium Chloride 0.9% 100 ml @ 100 mls/hr IVPB Q8HR [facility] Rx#:[id number] Oral 120 240 Blood Product 60 Cryoprecipitate Unit 10 [id number] Cryoprecipitate Unit 10 [id number] Cryoprecipitate Unit 10 [id number] Cryoprecipitate Unit 10 [id number] Cryoprecipitate Unit 10 [id number] Cryoprecipitate Unit 10 [id number] Output: Urine 950 700 350 Uretheral (Espinal) 600 350 350 Other: Voiding Method Indwelling Catheter Indwelling Catheter Indwelling Catheter - Exam GENERAL: Pt awake and alert, sitting up in a chair, in no acute distress. HEAD: Atraumatic, normocephalic. EYES: Pupils equal and round. Sclera anicteric, conjunctiva are normal. ENT: Moist mucous membranes. NECK:Normal range of motion, supple without lymphadenopathy or JVD. LUNGS: Breath sounds diminished with faint expiratory wheeze and crackles to right posterior lobe. HEART: Heart S1, S2, no S3 or S4. Regular rate and rhythm. No murmurs, rubs or gallops. ABDOMEN: Soft, nontender, distended, active bowel sounds, No guarding, no rebound. EXTREMITIES: 2+ peripheral pulses. No edema. No calf tenderness. NEUROLOGICAL: Pt oriented x 3. No focal deficits. PSYCH: Normal mood, normal affect. SKIN: Warm, dry, intact. Normal turgor. - Labs CBC & Chem 7: 11/19/16 06:37 11/19/16 06:37 Labs: Abnormal Lab Results - Last 24 Hours (Table) 11/18/16 11/18/16 11/19/16 Range/Units 17:25 20:32 06:37 WBC 2.1 L (3.8-10.6) k/uL RBC 3.16 L (4.30-5.90) m/uL Hgb 9.9 L (13.0-17.5) gm/dL Hct 30.5 L (39.0-53.0) % Plt Count 31 L* (150-450) k/uL Neutrophils # (Manual) 0.8 L (1.3-7.7) k/uL Nucleated RBCs 2 H (0-0) /100 WBC PT (9.0-12.0) sec Fibrinogen (200-500) mg/dL Chloride (98-107) mmol/L Carbon Dioxide (22-30) mmol/L Creatinine (0.66-1.25) mg/dL POC Glucose (mg/dL) 119 H 101 H (75-99) mg/dL Total Protein (6.3-8.2) g/dL Albumin (3.5-5.0) g/dL 11/19/16 11/19/16 11/19/16 Range/Units 06:37 06:37 12:12 WBC (3.8-10.6) k/uL RBC (4.30-5.90) m/uL Hgb (13.0-17.5) gm/dL Hct (39.0-53.0) % Plt Count (150-450) k/uL Neutrophils # (Manual) (1.3-7.7) k/uL Nucleated RBCs (0-0) /100 WBC PT 16.5 H (9.0-12.0) sec Fibrinogen <80 L* (200-500) mg/dL Chloride 112 H (98-107) mmol/L Carbon Dioxide 19 L (22-30) mmol/L Creatinine 1.70 H (0.66-1.25) mg/dL POC Glucose (mg/dL) 73 L (75-99) mg/dL Total Protein 4.5 L (6.3-8.2) g/dL Albumin 2.5 L (3.5-5.0) g/dL Assessment and Plan Plan: Impression and plan: 1. Abdominal pain with distention suspect secondary to partial small bowel obstruction and abdominal ileitis. Surgical consult in place, recommendations noted. At this time continue conservative management. Continue IV antibiotics. Continue IV hydration. 2. Wheezing and crackles to right posterior lung. Chest x-ray with evidence of possible right basal pneumonia, possible nosocomial. Pulmonary consult requested along with ID consult. Will start patient on updraft treatments, change antibiotics to IV Levaquin and IV Zosyn for broad-spectrum coverage. Obtain sputum culture. Continue nebulized updraft treatments. Continue incentive spirometry for patient to use 10 times an hour while awake. 3. 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 Hematology consult in place, recommendations noted. 4. Anemia, normocytic. 6. Increased creatinine with possible acute on chronic kidney disease. Creatinine increased to 1.7. We'll hold lisinopril and metformin. Continue IV hydration. 7. Chronic kidney disease, stage III. 8. Increased random blood sugar, present on admission. 9. Possible urinary tract infection, ruled out. Final urine culture negative. 10. Diabetes mellitus type 2. Hemoglobin A1c 7.3. Blood sugars elevated. Will start patient on Lantus protocol. 11. Hypertension. Continue Norvasc. 12. Hyperlipidemia. Continue Lipitor. 13. Macular degeneration. 14. History of bowel resection. 15. History of cholecystectomy. 16. History of orthopedic surgery. Continue to monitor patient. Continue current medications. Add Levaquin and Zosyn, discontinue Unasyn. Continue supportive treatment and pain management. Continue GI and DVT prophylaxis. Continue to follow with consultants. Repeat CBC and BMP in a.m. The above impression and plan have been discussed and directed by Dr. Burnette. Ponce LE acting as scribe for Dr. Burnette.
--- NOTE | 2016-11-19 16:26 | P.PN ---
Subjective Principal diagnosis: Enteritis Patient once again denies abdominal pain. He says his appetite is improved. No further bowel movements. He says he has passed a good amount of flatus. Labs were reviewed. He is afebrile. GI evaluation noted. Objective - Vital Signs Vital signs: Vital Signs Temp 98.1 F 11/19/16 15:00 Pulse 96 11/19/16 15:32 Resp 18 11/19/16 15:00 BP 121/57 11/19/16 15:00 Pulse Ox 98 11/19/16 15:00 Intake & Output 11/18/16 11/19/16 11/19/16 18:59 06:59 18:59 Intake Total 120 1340 60 Output Total 950 700 350 Balance -830 640 -290 Intake: IV 1000 Sodium Chloride 0.9% 1, 800 000 ml @ 100 mls/hr IV . Q10H [facility] Rx#:[id number] metroNIDAZOLE-NS PMX 500 200 mg In Saline 1 100ml.bag @ 100 mls/hr IVPB Q8HR [facility] Rx#:[id number] Intake, IV Titration 100 Amount Ampicillin-Sulbactam 3 gm 100 In Sodium Chloride 0.9% 100 ml @ 100 mls/hr IVPB Q8HR [facility] Rx#:[id number] Oral 120 240 Blood Product 60 Cryoprecipitate Unit 10 [id number] Cryoprecipitate Unit 10 [id number] Cryoprecipitate Unit 10 [id number] Cryoprecipitate Unit 10 [id number] Cryoprecipitate Unit 10 [id number] Cryoprecipitate Unit 10 [id number] Output: Urine 950 700 350 Uretheral (Espinal) 600 350 350 Other: Voiding Method Indwelling Catheter Indwelling Catheter Indwelling Catheter - Exam Abdomen: Soft, minimal lower abdominal tenderness, no rebound or guarding, minimal distention - Labs CBC & Chem 7: 11/19/16 06:37 11/19/16 06:37 Labs: Abnormal Lab Results - Last 24 Hours (Table) 11/18/16 11/18/16 11/19/16 Range/Units 17:25 20:32 06:37 WBC 2.1 L (3.8-10.6) k/uL RBC 3.16 L (4.30-5.90) m/uL Hgb 9.9 L (13.0-17.5) gm/dL Hct 30.5 L (39.0-53.0) % Plt Count 31 L* (150-450) k/uL Neutrophils # (Manual) 0.8 L (1.3-7.7) k/uL Nucleated RBCs 2 H (0-0) /100 WBC PT (9.0-12.0) sec Fibrinogen (200-500) mg/dL Chloride (98-107) mmol/L Carbon Dioxide (22-30) mmol/L Creatinine (0.66-1.25) mg/dL POC Glucose (mg/dL) 119 H 101 H (75-99) mg/dL Total Protein (6.3-8.2) g/dL Albumin (3.5-5.0) g/dL 11/19/16 11/19/16 11/19/16 Range/Units 06:37 06:37 12:12 WBC (3.8-10.6) k/uL RBC (4.30-5.90) m/uL Hgb (13.0-17.5) gm/dL Hct (39.0-53.0) % Plt Count (150-450) k/uL Neutrophils # (Manual) (1.3-7.7) k/uL Nucleated RBCs (0-0) /100 WBC PT 16.5 H (9.0-12.0) sec Fibrinogen <80 L* (200-500) mg/dL Chloride 112 H (98-107) mmol/L Carbon Dioxide 19 L (22-30) mmol/L Creatinine 1.70 H (0.66-1.25) mg/dL POC Glucose (mg/dL) 73 L (75-99) mg/dL Total Protein 4.5 L (6.3-8.2) g/dL Albumin 2.5 L (3.5-5.0) g/dL Assessment and Plan (1) Enteritis Narrative/Plan: Discussed the case with GI earlier today. Will empirically begin Solu-Medrol. Advance diet to full liquids. Continue to follow closely. The patient's and son were updated today once again. Status: Acute
[2016-11-19 17:22] LABS: Glucose,Whole Blood 100 mg/dL (75-99)
[2016-11-19] MEDS: PIPERACILLIN-TAZOBACTAM 3.375 GM in DEXTROSE/WATER 1 50ML.BAG IVPB SCH (17:38)
[2016-11-19] MEDS: SODIUM CHLORIDE 0.9% 1,000 ML IV SCH (17:40)
[2016-11-19] MEDS: methylPREDNISolone SOD SUCCI 125 MG/2 ML VIAL IV SCH ×2 (17:40→23:18)
[2016-11-19] MEDS ORDERED: methylPREDNISolone SOD SUCC 60 MG in SODIUM CHLORIDE 0.9% 100 ML IVPB SCH (18:00)
--- NOTE | 2016-11-19 18:34 | P.CNPUL ---
History of Present Illness Consult date: 11/19/16 Requesting physician: Allen Burnette Reason for consult: pleural effusion Chief complaint: Abdominal pain and constipation History of present illness: This is a 86-year-old white male who was admitted initially on 11/10/2016, his main presentation was mostly a GI presentation with abdominal pain and constipation. Since then the patient has been seen by many consultants, and his CT of the abdomen showed thickening of the terminal ileum patient responded gradually to supportive care, antibiotics, and it was felt that the patient may have ileitis and partial small bowel obstruction. Repeat CT of the abdomen on showed some progression of the thickening and a new thickening noted in the descending colon. Patient is being considered for possible inflammatory bowel disease and GI has been consulted. Initially the patient had a normal chest x-ray on presentation, however follow-up x-rays showed some atelectasis at the right base and a small right pleural effusion. Patient is complaining of dry hacking cough, some shortness of breath, no hemoptysis no fever no chills , and the cough is nonproductive. Considering his abnormal chest x-ray and his symptoms, I was asked to see him on consultation. During this admission the patient was noted to have pancytopenia and he is being followed by hematology. It was felt that the patient may have myelodysplasia, and he is still being followed by hematology. His pro time is prolonged, and his platelets are very low. His white count is low. Review of Systems 12 point review of systems were obtained, please refer to pertinent positives and negatives in HPI. 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, left hip replacement Past Anesthesia/Blood Transfusion Reactions: No Reported Reaction Past Psychological History: No Psychological Hx Reported Smoking Status: Former smoker Past Alcohol Use History: None Reported Past Drug Use History: None Reported - Past Family History Father Additional Family Medical History / Comment(s): at 55, sudden cardiac issue Mother Additional Family Medical History / Comment(s): dies at 55, abd cancer Medications and Allergies Home Medications Medication Instructions Recorded Confirmed Type ALPRAZolam [Xanax] 0.25 mg PO TID PRN 06/30/14 11/10/16 History Simvastatin [Zocor] 20 mg PO HS 06/30/14 11/10/16 History metFORMIN HCL 1,000 mg PO BID 06/30/14 11/10/16 History Acetaminophen-Codeine 300-30mg 1 tab PO TID PRN 11/10/16 11/10/16 History [Tylenol #3] Ciprofloxacin HCl [Cipro] 500 mg PO Q12HR 11/10/16 11/10/16 History Glimepiride [Amaryl] 2 mg PO BID 11/10/16 11/10/16 History Lisinopril [Prinivil] 5 mg PO DAILY 11/10/16 11/10/16 History Allergies Allergy/AdvReac Type Severity Reaction Status Date / Time No Known Allergies Allergy Verified 11/10/16 11:32 Physical Exam Vitals: Vital Signs Temp Pulse Pulse Pulse Resp BP BP 11/19/16 16:00 16 11/19/16 15:32 96 11/19/16 15:28 92 11/19/16 15:00 98.1 F 105 H 18 121/57 11/19/16 13:07 98.5 F 96 16 130/62 11/19/16 12:20 98.3 F 96 16 130/62 11/19/16 12:18 97.9 F 96 130/62 11/19/16 12:17 97.9 F 97 16 135/63 11/19/16 12:16 97.9 F 95 16 135/63 11/19/16 12:14 98.1 F 96 16 123/60 11/19/16 12:08 97.3 F L 98 16 139/65 11/19/16 11:58 97.8 F 99 16 124/61 11/19/16 11:02 97.5 F L 96 12 128/60 11/19/16 08:00 12 11/19/16 07:00 97.5 F L 59 L 18 125/51 11/18/16 22:57 98.6 F 99 24 134/62 Pulse Ox 11/19/16 16:00 11/19/16 15:32 11/19/16 15:28 11/19/16 15:00 98 11/19/16 13:07 97 11/19/16 12:20 97 11/19/16 12:18 95 11/19/16 12:17 96 11/19/16 12:16 96 11/19/16 12:14 95 11/19/16 12:08 95 11/19/16 11:58 95 11/19/16 11:02 93 L 11/19/16 08:00 11/19/16 07:00 94 L 11/18/16 22:57 95 Intake and Output 11/19/16 11/19/16 11/19/16 06:59 14:59 22:59 Intake Total 1040 1060 Output Total 700 350 350 Balance 340 710 -350 Intake: IV 700 800 Sodium Chloride 0.9% 1, 600 700 000 ml @ 100 mls/hr IV . Q10H [facility] Rx#:[id number] metroNIDAZOLE-NS PMX 500 100 100 mg In Saline 1 100ml.bag @ 100 mls/hr IVPB Q8HR [facility] Rx#:[id number] Intake, IV Titration 100 200 Amount Ampicillin-Sulbactam 3 gm 100 100 In Sodium Chloride 0.9% 100 ml @ 100 mls/hr IVPB Q8HR [facility] Rx#:[id number] Levofloxacin 750Mg-D5w 50 Pmx 750 mg In Dextrose/ Water 1 150ml.bag @ 100 mls/hr IVPB Q48H [facility] Rx#: [id number] Phytonadione 5 mg In 50 Sodium Chloride 0.9% 50 ml @ 100 mls/hr IVPB ONCE [facility] Rx#:[id number] Oral 240 Blood Product 60 Cryoprecipitate Unit 10 [id number] Cryoprecipitate Unit 10 [id number] Cryoprecipitate Unit 10 [id number] Cryoprecipitate Unit 10 [id number] Cryoprecipitate Unit 10 [id number] Cryoprecipitate Unit 10 [id number] Output: Urine 700 350 350 Uretheral (Espinal) 350 350 350 Other: Voiding Method Indwelling Catheter Indwelling Catheter Indwelling Catheter Physical Exam: Revealed an 86-year-old white male on room air in no distress. HEENT:[Neck is supple.] [No neck masses.] [No thyromegaly.] [No JVD.] Chest: [Clear throughout, slightly diminished breath sounds at the right base, no crackles or rhonchi or wheezes..] Cardiac Exam: [Normal S1 and S2, no S3 gallop, no murmur.] Abdomen: [Soft, nontender, no megaly, no rebound, no guarding, normal bowel sounds.] Extremities: [No clubbing, no edema, no cyanosis.] Neurological Exam: [No focal neurologic deficit.] Results - Laboratory Findings CBC and BMP: 11/19/16 06:37 11/19/16 06:37 PT/INR, D-dimer PT 16.5 sec (9.0-12.0) H 11/19/16 06:37 INR 1.7 (<1.1) 11/19/16 06:37 Abnormal lab findings: Abnormal Labs 11/10/16 11/10/16 11/10/16 07:11 11:15 16:23 WBC RBC Hgb Hct Plt Count Neutrophils # (Manual) Lymphocytes # Lymphocytes # (Manual) Nucleated RBCs PT Fibrinogen Chloride Carbon Dioxide BUN Creatinine Glucose POC Glucose (mg/dL) 64 L 108 H 114 H Hemoglobin A1c TIBC % Saturation Total Protein Total Protein (PEP) Albumin Albumin (PEP) Ramah-9-Xbpycdrau Beta Globulins Gamma Globulins RBC Folate Free [place] LC, Quant Free Lambda LC, Quant 11/10/16 11/11/16 11/11/16 23:04 16:47 20:22 WBC RBC Hgb Hct Plt Count Neutrophils # (Manual) Lymphocytes # Lymphocytes # (Manual) Nucleated RBCs PT Fibrinogen Chloride Carbon Dioxide BUN Creatinine Glucose POC Glucose (mg/dL) 120 H 102 H 101 H Hemoglobin A1c TIBC % Saturation Total Protein Total Protein (PEP) Albumin Albumin (PEP) Hwppl-0-Zghgzuwym Beta Globulins Gamma Globulins RBC Folate Free [place] LC, Quant Free Lambda LC, Quant 11/12/16 11/12/16 11/12/16 07:20 08:42 08:42 WBC 2.4 L RBC 3.38 L Hgb 10.7 L Hct 32.6 L Plt Count 56 L Neutrophils # (Manual) 0.9 L Lymphocytes # Lymphocytes # (Manual) Nucleated RBCs PT Fibrinogen Chloride 108 H Carbon Dioxide BUN 31 H Creatinine 1.70 H Glucose 125 H POC Glucose (mg/dL) 127 H Hemoglobin A1c TIBC % Saturation Total Protein Total Protein (PEP) Albumin Albumin (PEP) Twnux-1-Hbpnwsyya Beta Globulins Gamma Globulins RBC Folate Free [place] LC, Quant Free Lambda LC, Quant 11/12/16 11/12/16 11/12/16 11:36 17:05 20:15 WBC RBC Hgb Hct Plt Count Neutrophils # (Manual) Lymphocytes # Lymphocytes # (Manual) Nucleated RBCs PT Fibrinogen Chloride Carbon Dioxide BUN Creatinine Glucose POC Glucose (mg/dL) 182 H 111 H 110 H Hemoglobin A1c TIBC % Saturation Total Protein Total Protein (PEP) Albumin Albumin (PEP) Cclkb-0-Ukphfdnxc Beta Globulins Gamma Globulins RBC Folate Free [place] LC, Quant Free Lambda LC, Quant 11/13/16 11/13/16 11/13/16 07:24 07:50 07:50 WBC 2.2 L RBC 3.34 L Hgb 10.5 L Hct 32.5 L Plt Count 52 L Neutrophils # (Manual) 0.6 L Lymphocytes # Lymphocytes # (Manual) Nucleated RBCs PT Fibrinogen Chloride 110 H Carbon Dioxide 19 L BUN 31 H Creatinine 1.61 H Glucose 129 H POC Glucose (mg/dL) 123 H Hemoglobin A1c TIBC % Saturation Total Protein Total Protein (PEP) Albumin Albumin (PEP) Ypzmt-9-Tcqsnkyoc Beta Globulins Gamma Globulins RBC Folate Free [place] LC, Quant Free Lambda LC, Quant 11/13/16 11/13/16 11/13/16 12:25 17:22 20:42 WBC RBC Hgb Hct Plt Count Neutrophils # (Manual) Lymphocytes # Lymphocytes # (Manual) Nucleated RBCs PT Fibrinogen Chloride Carbon Dioxide BUN Creatinine Glucose POC Glucose (mg/dL) 120 H 119 H 187 H Hemoglobin A1c TIBC % Saturation Total Protein Total Protein (PEP) Albumin Albumin (PEP) Jjxkj-6-Nadteixgw Beta Globulins Gamma Globulins RBC Folate Free [place] LC, Quant Free Lambda LC, Quant 11/14/16 11/14/16 11/14/16 06:02 06:02 07:09 WBC 2.0 L* RBC 3.26 L Hgb 10.3 L Hct 31.5 L Plt Count 44 L* Neutrophils # (Manual) 0.3 L Lymphocytes # Lymphocytes # (Manual) Nucleated RBCs PT Fibrinogen Chloride Carbon Dioxide BUN Creatinine Glucose POC Glucose (mg/dL) Hemoglobin A1c TIBC 246 L % Saturation 73.6 H Total Protein Total Protein (PEP) Albumin Albumin (PEP) Zpbcr-6-Quhloxtrn Beta Globulins Gamma Globulins RBC Folate 840 H Free [place] LC, Quant 3.22 H Free Lambda LC, Quant 2.85 H 11/14/16 11/14/16 11/14/16 07:09 07:09 07:09 WBC RBC Hgb Hct Plt Count Neutrophils # (Manual) Lymphocytes # Lymphocytes # (Manual) Nucleated RBCs PT Fibrinogen Chloride 110 H Carbon Dioxide BUN 25 H Creatinine 1.54 H Glucose 157 H POC Glucose (mg/dL) Hemoglobin A1c 7.3 H TIBC % Saturation Total Protein Total Protein (PEP) 5.0 L Albumin Albumin (PEP) 3.47 L Dcpyc-3-Oqrivabgo 0.37 L Beta Globulins 0.48 L Gamma Globulins 0.53 L RBC Folate Free [place] LC, Quant Free Lambda LC, Quant 11/14/16 11/14/16 11/14/16 07:37 11:56 17:17 WBC RBC Hgb Hct Plt Count Neutrophils # (Manual) Lymphocytes # Lymphocytes # (Manual) Nucleated RBCs PT Fibrinogen Chloride Carbon Dioxide BUN Creatinine Glucose POC Glucose (mg/dL) 165 H 211 H 145 H Hemoglobin A1c TIBC % Saturation Total Protein Total Protein (PEP) Albumin Albumin (PEP) Vwhjd-7-Gcnswqibz Beta Globulins Gamma Globulins RBC Folate Free [place] LC, Quant Free Lambda LC, Quant 11/14/16 11/15/16 11/15/16 21:44 07:31 08:55 WBC 1.9 L* RBC 3.39 L Hgb 10.6 L Hct 32.9 L Plt Count 34 L* Neutrophils # (Manual) 0.3 L Lymphocytes # Lymphocytes # (Manual) Nucleated RBCs PT Fibrinogen Chloride Carbon Dioxide BUN Creatinine Glucose POC Glucose (mg/dL) 171 H 179 H Hemoglobin A1c TIBC % Saturation Total Protein Total Protein (PEP) Albumin Albumin (PEP) Vowtk-2-Wuygfkgjy Beta Globulins Gamma Globulins RBC Folate Free [place] LC, Quant Free Lambda LC, Quant 11/15/16 11/15/16 11/15/16 08:55 11:14 17:04 WBC RBC Hgb Hct Plt Count Neutrophils # (Manual) Lymphocytes # Lymphocytes # (Manual) Nucleated RBCs PT Fibrinogen Chloride 111 H Carbon Dioxide 20 L BUN Creatinine 1.42 H Glucose 223 H POC Glucose (mg/dL) 227 H 128 H Hemoglobin A1c TIBC % Saturation Total Protein Total Protein (PEP) Albumin Albumin (PEP) Swoqb-7-Mumvdvaka Beta Globulins Gamma Globulins RBC Folate Free [place] LC, Quant Free Lambda LC, Quant 11/15/16 11/16/16 11/16/16 19:58 06:53 07:02 WBC RBC 3.17 L Hgb 9.7 L Hct 30.6 L Plt Count 33 L* Neutrophils # (Manual) Lymphocytes # Lymphocytes # (Manual) Nucleated RBCs PT Fibrinogen Chloride Carbon Dioxide BUN Creatinine Glucose POC Glucose (mg/dL) 146 H 141 H Hemoglobin A1c TIBC % Saturation Total Protein Total Protein (PEP) Albumin Albumin (PEP) Pxokd-0-Yvjxeniha Beta Globulins Gamma Globulins RBC Folate Free [place] LC, Quant Free Lambda LC, Quant 11/16/16 11/16/16 11/16/16 07:02 11:31 16:34 WBC RBC Hgb Hct Plt Count Neutrophils # (Manual) Lymphocytes # Lymphocytes # (Manual) Nucleated RBCs PT Fibrinogen Chloride 111 H Carbon Dioxide BUN Creatinine 1.41 H Glucose 138 H POC Glucose (mg/dL) 168 H 141 H Hemoglobin A1c TIBC % Saturation Total Protein Total Protein (PEP) Albumin Albumin (PEP) Wkosm-0-Sutkejnbe Beta Globulins Gamma Globulins RBC Folate Free [place] LC, Quant Free Lambda LC, Quant 11/16/16 11/17/16 11/17/16 20:37 06:45 07:18 WBC RBC Hgb Hct Plt Count Neutrophils # (Manual) Lymphocytes # Lymphocytes # (Manual) Nucleated RBCs PT Fibrinogen Chloride 111 H Carbon Dioxide BUN Creatinine 1.46 H Glucose 126 H POC Glucose (mg/dL) 142 H 124 H Hemoglobin A1c TIBC % Saturation Total Protein Total Protein (PEP) Albumin Albumin (PEP) Bwzbr-5-Rtmqzizth Beta Globulins Gamma Globulins RBC Folate Free [place] LC, Quant Free Lambda LC, Quant 11/17/16 11/17/16 11/17/16 07:20 11:39 20:28 WBC RBC 3.21 L Hgb 9.9 L Hct 31.1 L Plt Count 32 L* Neutrophils # (Manual) Lymphocytes # Lymphocytes # (Manual) Nucleated RBCs PT Fibrinogen Chloride Carbon Dioxide BUN Creatinine Glucose POC Glucose (mg/dL) 121 H 112 H Hemoglobin A1c TIBC % Saturation Total Protein Total Protein (PEP) Albumin Albumin (PEP) Bwikg-9-Wnlppkjwe Beta Globulins Gamma Globulins RBC Folate Free [place] LC, Quant Free Lambda LC, Quant 11/17/16 11/17/16 11/17/16 21:38 21:38 21:38 WBC 3.7 L RBC 3.17 L Hgb 10.0 L Hct 31.0 L Plt Count 39 L* Neutrophils # (Manual) Lymphocytes # 0.8 L Lymphocytes # (Manual) Nucleated RBCs PT 17.3 H Fibrinogen Chloride 111 H Carbon Dioxide BUN Creatinine 1.46 H Glucose 112 H POC Glucose (mg/dL) Hemoglobin A1c TIBC % Saturation Total Protein 4.7 L Total Protein (PEP) Albumin 2.7 L Albumin (PEP) Qfuys-1-[place] Beta Globulins Gamma Globulins RBC Folate Free [place] LC, Quant Free Lambda LC, Quant 11/18/16 11/18/16 11/18/16 06:44 06:44 06:51 WBC 3.2 L RBC 3.10 L Hgb 9.5 L Hct 30.0 L Plt Count 30 L* Neutrophils # (Manual) Lymphocytes # Lymphocytes # (Manual) 0.9 L Nucleated RBCs PT Fibrinogen Chloride 112 H Carbon Dioxide 21 L BUN Creatinine 1.55 H Glucose 111 H POC Glucose (mg/dL) 109 H Hemoglobin A1c TIBC % Saturation Total Protein Total Protein (PEP) Albumin Albumin (PEP) Zapdb-2-Phgryhrpc Beta Globulins Gamma Globulins RBC Folate Free [place] LC, Quant Free Lambda LC, Quant 11/18/16 11/18/16 11/19/16 17:25 20:32 06:37 WBC 2.1 L RBC 3.16 L Hgb 9.9 L Hct 30.5 L Plt Count 31 L* Neutrophils # (Manual) 0.8 L Lymphocytes # Lymphocytes # (Manual) Nucleated RBCs 2 H PT Fibrinogen Chloride Carbon Dioxide BUN Creatinine Glucose POC Glucose (mg/dL) 119 H 101 H Hemoglobin A1c TIBC % Saturation Total Protein Total Protein (PEP) Albumin Albumin (PEP) Ocedf-5-Smqczqhdq Beta Globulins Gamma Globulins RBC Folate Free [place] LC, Quant Free Lambda LC, Quant 11/19/16 11/19/16 11/19/16 06:37 06:37 12:12 WBC RBC Hgb Hct Plt Count Neutrophils # (Manual) Lymphocytes # Lymphocytes # (Manual) Nucleated RBCs PT 16.5 H Fibrinogen <80 L* Chloride 112 H Carbon Dioxide 19 L BUN Creatinine 1.70 H Glucose POC Glucose (mg/dL) 73 L Hemoglobin A1c TIBC % Saturation Total Protein 4.5 L Total Protein (PEP) Albumin 2.5 L Albumin (PEP) Gvllv-3-Rahidxpmc Beta Globulins Gamma Globulins RBC Folate Free [place] LC, Quant Free Lambda LC, Quant 11/19/16 17:19 WBC RBC Hgb Hct Plt Count Neutrophils # (Manual) Lymphocytes # Lymphocytes # (Manual) Nucleated RBCs PT Fibrinogen Chloride Carbon Dioxide BUN Creatinine Glucose POC Glucose (mg/dL) 100 H Hemoglobin A1c TIBC % Saturation Total Protein Total Protein (PEP) Albumin Albumin (PEP) Peziz-9-Fjtblgitw Beta Globulins Gamma Globulins RBC Folate Free [place] LC, Quant Free Lambda LC, Quant Assessment and Plan Plan: Impression: Acute presentation with abdominal pain and suspected small bowel obstruction as well as acute ileitis. Patient apparently responded to IV antibiotics and IV hydration. The presentation seems to be consistent with a presentation of acute inflammatory bowel disease. Workup for IBD is pending. Small right pleural effusion, most likely secondary to aggressive hydration, and possibly related to chronic right lower lobe atelectasis. However the effusion is too small to consider thoracentesis at this point, but I will go ahead and recommended ultrasound and if large enough to be drained, I would pursue this further. However his low platelets and elevated INR remains to be an issue to deal with before addressing thoracentesis. Multiple comorbidities including pancytopenia, acute on chronic kidney disease stage III, diabetes type 2, history of hypertension, hyperlipidemia, macular degeneration, history of previous bowel resection. Recommendation: Continue present treatment plan including updrafts, incentive spirometry, steroids, and antibiotics. Based on the ultrasound findings, further recommendations will follow. Time with Patient: Greater than 30
--- NOTE | 2016-11-19 19:46 | P.PN ---
Subjective Principal diagnosis: pancytopenia Pt continues to have abd distension and mild discomfort, not progressive, lots of gas, he is tolerating clear liquids at this time, no nausea or vomiting. He denies any SOB, chest pain, bleeding, no BM, he has not been ambulating much. Objective - Vital Signs Vital signs: Vital Signs Temp 98.1 F 11/19/16 15:00 Pulse 96 11/19/16 15:32 Resp 18 11/19/16 15:00 BP 121/57 11/19/16 15:00 Pulse Ox 98 11/19/16 15:00 Intake & Output 11/18/16 11/19/16 11/19/16 18:59 06:59 18:59 Intake Total 120 1340 60 Output Total 950 700 350 Balance -830 640 -290 Intake: IV 1000 Sodium Chloride 0.9% 1, 800 000 ml @ 100 mls/hr IV . Q10H [facility] Rx#:[id number] metroNIDAZOLE-NS PMX 500 200 mg In Saline 1 100ml.bag @ 100 mls/hr IVPB Q8HR [facility] Rx#:[id number] Intake, IV Titration 100 Amount Ampicillin-Sulbactam 3 gm 100 In Sodium Chloride 0.9% 100 ml @ 100 mls/hr IVPB Q8HR [facility] Rx#:[id number] Oral 120 240 Blood Product 60 Cryoprecipitate Unit 10 [id number] Cryoprecipitate Unit 10 [id number] Cryoprecipitate Unit 10 [id number] Cryoprecipitate Unit 10 [id number] Cryoprecipitate Unit 10 [id number] Cryoprecipitate Unit 10 [id number] Output: Urine 950 700 350 Uretheral (Espinal) 600 350 350 Other: Voiding Method Indwelling Catheter Indwelling Catheter Indwelling Catheter - Constitutional General appearance: Present: average body habitus, cooperative, no acute distress - Respiratory Respiratory: bilateral: CTA - Cardiovascular Heart sounds: normal: S1, S2 - Gastrointestinal General gastrointestinal: Present: distended, normal bowel sounds, soft, tenderness. Absent: absent bowel sounds, decreased bowel sounds, hepatomegaly, hyperactive bowel sounds, organomegaly, rigid, scaphoid, splenomegaly, umbilical hernia, ventral hernia Localized gastrointestinal: tender: RLQ - Integumentary Integumentary: Present: pale - Neurologic Neurologic: Present: CNII-XII intact - Musculoskeletal Musculoskeletal: Present: generalized weakness - Psychiatric Psychiatric: Present: A&O x's 3, appropriate affect, intact judgment & insight - Labs CBC & Chem 7: 11/19/16 06:37 11/19/16 06:37 Labs: Abnormal Lab Results - Last 24 Hours (Table) 11/18/16 11/18/16 11/19/16 Range/Units 17:25 20:32 06:37 WBC 2.1 L (3.8-10.6) k/uL RBC 3.16 L (4.30-5.90) m/uL Hgb 9.9 L (13.0-17.5) gm/dL Hct 30.5 L (39.0-53.0) % Plt Count 31 L* (150-450) k/uL Neutrophils # (Manual) 0.8 L (1.3-7.7) k/uL Nucleated RBCs 2 H (0-0) /100 WBC PT (9.0-12.0) sec Fibrinogen (200-500) mg/dL Chloride (98-107) mmol/L Carbon Dioxide (22-30) mmol/L Creatinine (0.66-1.25) mg/dL POC Glucose (mg/dL) 119 H 101 H (75-99) mg/dL Total Protein (6.3-8.2) g/dL Albumin (3.5-5.0) g/dL 11/19/16 11/19/16 11/19/16 Range/Units 06:37 06:37 12:12 WBC (3.8-10.6) k/uL RBC (4.30-5.90) m/uL Hgb (13.0-17.5) gm/dL Hct (39.0-53.0) % Plt Count (150-450) k/uL Neutrophils # (Manual) (1.3-7.7) k/uL Nucleated RBCs (0-0) /100 WBC PT 16.5 H (9.0-12.0) sec Fibrinogen <80 L* (200-500) mg/dL Chloride 112 H (98-107) mmol/L Carbon Dioxide 19 L (22-30) mmol/L Creatinine 1.70 H (0.66-1.25) mg/dL POC Glucose (mg/dL) 73 L (75-99) mg/dL Total Protein 4.5 L (6.3-8.2) g/dL Albumin 2.5 L (3.5-5.0) g/dL Assessment and Plan (1) Pancytopenia Narrative/Plan: Lab work did not detected a monoclonal protein. Other work up based on clinical course It is noted that pt WBC has dropped rapidly after being off of GCSF. Based on labs in AM GCSF may be reordered. Hgb and platelets though are in a safe range, no transfusions today. Labs daily Status: Acute (2) Coagulopathy Narrative/Plan: Fibrinogen is low. This is an unexpected finding cryoprecipitate is being ordered, labs in AM. Vit K ordered for elevated INR NO ASA, NSAIDs or anticoagulation for now. Status: Acute
--- NOTE | 2016-11-19 19:48 | US ---
EXAMINATION TYPE: US chest DATE OF EXAM: 11/19/2016 7:35 PM COMPARISON: NONE CLINICAL HISTORY: rt pleural effusion. EXAM MEASUREMENTS: Right Pleural Effusion fluid pocket: 10.9 cm Right skin to fluid thickness: 2.1 cm Right side marked for possible thoracentesis outside the dept. Pulmonologists are able to review the images in the patient?s EMR. TECHNOLOGIST IMPRESSION: Right pleural effusion marked for possible thoracentesis outside the dept. IMPRESSIONS: The exam identifies a pocket of pleural fluid on the right side that measures more than 10 cm.
[2016-11-19 20:45] LABS: Glucose,Whole Blood 208 mg/dL (75-99)
[2016-11-19] MEDS: ATORVASTATIN 10 MG TAB PO SCH (21:27)
[2016-11-19] MEDS: ALPRAZolam 0.25 MG TAB PO PRN (21:27)
[2016-11-19] MEDS: INSULIN GLARGINE 100 UNIT/ML 10 ML VIAL SQ SCH (21:35)
[2016-11-19] MEDS: FILGRASTIM-SNDZ 480 MCG/0.8 ML SYRINGE SQ SCH (21:38)
[2016-11-20] MEDS: PIPERACILLIN-TAZOBACTAM 3.375 GM in DEXTROSE/WATER 1 50ML.BAG IVPB SCH ×3 (00:45→16:40)
[2016-11-20] MEDS: methylPREDNISolone SOD SUCCI 125 MG/2 ML VIAL IV SCH ×3 (05:38→18:11)
[2016-11-20] MEDS: metroNIDAZOLE-NS PMX 500 MG in SALINE 1 100ML.BAG IVPB SCH ×3 (07:29→23:19)
[2016-11-20] MEDS: PANTOPRAZOLE 40 MG TABLET PO SCH (07:33)
[2016-11-20 07:34] LABS: Glucose,Whole Blood 198 mg/dL (75-99)
[2016-11-20] MEDS: IPRATROPIUM-ALBUTEROL 3 ML NEB INHALATION SCH ×5 (07:43→19:29)
[2016-11-20] MEDS: INSULIN LISPRO (humaLOG) 300 UNIT/3 ML VIAL SQ SCH ×7 (08:33→21:36)
[2016-11-20] MEDS: amLODIPine 5 MG TAB PO SCH (09:06)
[2016-11-20] MEDS: SODIUM CHLORIDE 0.9% 1,000 ML IV SCH ×3 (09:19→22:05)
[2016-11-20 09:37] LABS: INR 1.6 (<1.1)
[2016-11-20 09:38] LABS: Partial Thromboplastin Time 24.2 sec (22.0-30.0); Prothrombin Time 15.7 sec (9.0-12.0)
[2016-11-20 09:39] LABS: Calcium 9.6 mg/dL (8.4-10.2); Potassium 4.4 mmol/L (3.5-5.1); Total Bilirubin 0.8 mg/dL (0.2-1.3); Total Protein 4.9 g/dL (6.3-8.2)
[2016-11-20 10:01] LABS: Aty Lym Flag Marked; CH 30.2; CHCM 31.4; HCT 29.3 % (39.0-53.0); HDW 2.64; HGB 9.5 gm/dL (13.0-17.5); Hypochromasia Slight; MCH 31.4 pg (25.0-35.0); MCHC 32.3 g/dL (31.0-37.0); Mean Platelet Volume 9.9; RBC 3.02 m/uL (4.30-5.90); RDW 15.4 % (11.5-15.5); WBC 3.5 k/uL (3.8-10.6); WBC (Perox) 3.81
[2016-11-20 11:29] LABS: Add Differential Manual Differential
[2016-11-20 11:32] LABS: Nucleated Red Blood Cells 0 /100 WBC (0-0)
[2016-11-20 11:32] LABS: Glucose,Whole Blood 261 mg/dL (75-99)
[2016-11-20 11:34] LABS: Manual Review Performed; Myelocytes % 0.5 %; Total Cells Counted 200
[2016-11-20 11:35] LABS: Large Platelets Present
--- NOTE | 2016-11-20 12:41 | P.PN ---
Subjective Patient is an 86-year-old white male admitted with complaints of abdominal pain with evidence of partial small bowel obstruction and enteritis. Patient also with evidence of patchy pneumonia or atelectasis in the posterior lung base per x-ray on admission. Admission labs with evidence of pancytopenia. GI service, surgical service, and hematology service are following patient. Patient is sitting up in a chair. Patient states he feels better than yesterday. Patient denies chills, nausea, vomiting, shortness of breath, chest pain, or abdominal pain. Patient reports flatus but no bowel movements. Urine output adequate. Afebrile. Hemodynamically stable. Patient has been started on Solu-Medrol empirically for possibility of inflammatory bowel disease. Patient did undergo ultrasound of chest with evidence of right pleural effusion on the right side measuring more than 10 cm. No plans for thoracentesis, endoscopy, or surgical intervention at this time. Objective - Vital Signs Vital signs: Vital Signs Temp 97.6 F 11/19/16 22:06 Pulse 98 11/20/16 12:05 Resp 18 11/20/16 12:05 BP 137/63 11/20/16 07:00 Pulse Ox 94 L 11/20/16 07:00 Intake & Output 11/19/16 11/20/16 11/20/16 18:59 06:59 18:59 Intake Total 1060 590 Output Total 700 700 700 Balance 360 -110 -700 Weight 85.275 kg 85.275 kg Intake: IV 800 350 Sodium Chloride 0.9% 1, 700 350 000 ml @ 100 mls/hr IV . Q10H [facility] Rx#:[id number] metroNIDAZOLE-NS PMX 500 100 mg In Saline 1 100ml.bag @ 100 mls/hr IVPB Q8HR [facility] Rx#:[id number] Intake, IV Titration 200 Amount Ampicillin-Sulbactam 3 gm 100 In Sodium Chloride 0.9% 100 ml @ 100 mls/hr IVPB Q8HR [facility] Rx#:[id number] Levofloxacin 750Mg-D5w 50 Pmx 750 mg In Dextrose/ Water 1 150ml.bag @ 100 mls/hr IVPB Q48H [facility] Rx#: [id number] Phytonadione 5 mg In 50 Sodium Chloride 0.9% 50 ml @ 100 mls/hr IVPB ONCE [facility] Rx#:[id number] Oral 240 Blood Product 60 Cryoprecipitate Unit 10 [id number] Cryoprecipitate Unit 10 [id number] Cryoprecipitate Unit 10 [id number] Cryoprecipitate Unit 10 [id number] Cryoprecipitate Unit 10 [id number] Cryoprecipitate Unit 10 [id number] Output: Urine 700 700 700 Uretheral (Espinla) 700 Other: Voiding Method Indwelling Catheter Indwelling Catheter Indwelling Catheter - Exam GENERAL: Pt awake and alert, sitting up in a chair, in no acute distress. HEAD: Atraumatic, normocephalic. EYES: Pupils equal and round. Sclera anicteric, conjunctiva are normal. ENT: Moist mucous membranes. NECK:Normal range of motion, supple without lymphadenopathy or JVD. LUNGS: Breath sounds diminished with crackles to right posterior lobe. No wheezing at this time. HEART: Heart S1, S2, no S3 or S4. Regular rate and rhythm. No murmurs, rubs or gallops. ABDOMEN: Soft, nontender, distended, active bowel sounds, No guarding, no rebound. EXTREMITIES: 2+ peripheral pulses. No edema. No calf tenderness. NEUROLOGICAL: Pt oriented x 3. No focal deficits. PSYCH: Normal mood, normal affect. SKIN: Warm, dry, intact. Normal turgor. - Labs CBC & Chem 7: 11/20/16 08:59 11/20/16 08:48 Labs: Abnormal Lab Results - Last 24 Hours (Table) 11/19/16 11/19/16 11/20/16 Range/Units 17:19 20:44 07:16 WBC (3.8-10.6) k/uL RBC (4.30-5.90) m/uL Hgb (13.0-17.5) gm/dL Hct (39.0-53.0) % Plt Count (150-450) k/uL PT (9.0-12.0) sec Fibrinogen (200-500) mg/dL Chloride (98-107) mmol/L Carbon Dioxide (22-30) mmol/L BUN (9-20) mg/dL Creatinine (0.66-1.25) mg/dL Glucose (74-99) mg/dL POC Glucose (mg/dL) 100 H 208 H 198 H (75-99) mg/dL Total Protein (6.3-8.2) g/dL Albumin (3.5-5.0) g/dL 11/20/16 11/20/16 11/20/16 Range/Units 08:48 08:59 08:59 WBC 3.5 L (3.8-10.6) k/uL RBC 3.02 L (4.30-5.90) m/uL Hgb 9.5 L (13.0-17.5) gm/dL Hct 29.3 L (39.0-53.0) % Plt Count 26 L* (150-450) k/uL PT 15.7 H (9.0-12.0) sec Fibrinogen 94 L* (200-500) mg/dL Chloride 109 H (98-107) mmol/L Carbon Dioxide 17 L (22-30) mmol/L BUN 27 H (9-20) mg/dL Creatinine 1.74 H (0.66-1.25) mg/dL Glucose 267 H (74-99) mg/dL POC Glucose (mg/dL) (75-99) mg/dL Total Protein 4.9 L (6.3-8.2) g/dL Albumin 2.8 L (3.5-5.0) g/dL 11/20/16 Range/Units 11:30 WBC (3.8-10.6) k/uL RBC (4.30-5.90) m/uL Hgb (13.0-17.5) gm/dL Hct (39.0-53.0) % Plt Count (150-450) k/uL PT (9.0-12.0) sec Fibrinogen (200-500) mg/dL Chloride (98-107) mmol/L Carbon Dioxide (22-30) mmol/L BUN (9-20) mg/dL Creatinine (0.66-1.25) mg/dL Glucose (74-99) mg/dL POC Glucose (mg/dL) 261 H (75-99) mg/dL Total Protein (6.3-8.2) g/dL Albumin (3.5-5.0) g/dL Assessment and Plan Plan: Impression and plan: 1. Abdominal pain with distention suspect secondary to possible small bowel obstruction and enteritis. Surgical and GI consult in place, recommendations noted. At this time continue conservative management. Continue IV antibiotics. Continue IV hydration. Patient has been started on IV Solu- Medrol empirically for possibility of inflammatory bowel disease. 2. Right pleural effusion. Pulmonary service is following patient, no plans for thoracentesis at this point. 3. Chest x-ray with evidence of possible right basal pneumonia, possible nosocomial. Pulmonary consult requested along with ID consult. Continue patient on updraft treatments, change antibiotics to IV Levaquin and IV Zosyn for broad-spectrum coverage. Obtain sputum culture. Continue nebulized updraft treatments. Continue incentive spirometry for patient to use 10 times an hour while awake. 3. 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 Hematology consult in place, recommendations noted. 4. Anemia, normocytic. 6. Increased creatinine with possible acute on chronic kidney disease. Creatinine stable at 1.74. We'll hold lisinopril and metformin. Continue IV hydration. 7. Chronic kidney disease, stage III. 8. Increased random blood sugar, present on admission. 9. Possible urinary tract infection, ruled out. Final urine culture negative. 10. Diabetes mellitus type 2. Hemoglobin A1c 7.3. Blood sugars elevated. Continue Lantus protocol. 11. Hypertension. Continue Norvasc. 12. Hyperlipidemia. Continue Lipitor. 13. Macular degeneration. 14. History of bowel resection. 15. History of cholecystectomy. 16. History of orthopedic surgery. Continue to monitor patient. Continue current medications. Continue supportive treatment and pain management. Continue GI and DVT prophylaxis. Continue to follow with consultants. Repeat CBC and BMP in a.m. The above impression and plan have been discussed and directed by Dr. Burnette. Ponce LE acting as scribe for Dr. Burnette.
[2016-11-20] MEDS: FILGRASTIM-SNDZ 480 MCG/0.8 ML SYRINGE SQ SCH (13:42)
--- NOTE | 2016-11-20 15:00 | P.PN ---
Subjective This is a an 86-year-old white male who was admitted initially on 11/10/2016, his main presentation was mostly a GI presentation with abdominal pain and constipation. Since then the patient has been seen by many consultants, and his CT of the abdomen showed thickening of the terminal ileum patient responded gradually to supportive care, antibiotics, and it was felt that the patient may have ileitis and partial small bowel obstruction. Repeat CT of the abdomen on showed some progression of the thickening and a new thickening noted in the descending colon. Patient is being considered for possible inflammatory bowel disease and GI has been consulted. Initially the patient had a normal chest x-ray on presentation, however follow-up x-rays showed some atelectasis at the right base and a small right pleural effusion. Patient is complaining of dry hacking cough, some shortness of breath, no hemoptysis no fever no chills , and the cough is nonproductive. He was seen yesterday in consultation by Dr. Lewis. He is seen again today 11/20/2016 in follow-up. He is sitting up in the chair at the bedside. He is awake and alert in no acute distress. He is maintaining good O2 saturations in the mid 90s on room air. He has been afebrile. He has been noted to have pancytopenia and low fibrinogen levels and hematology is on the case as well. Objective - Vital Signs Vital signs: Vital Signs Temp 97.6 F 11/19/16 22:06 Pulse 100 11/20/16 12:20 Resp 18 11/20/16 12:05 BP 137/63 11/20/16 07:00 Pulse Ox 94 L 11/20/16 07:00 Intake & Output 11/19/16 11/20/16 11/20/16 18:59 06:59 18:59 Intake Total 6453 078 2742 Output Total 700 700 700 Balance 360 -110 630 Weight 85.275 kg 85.275 kg Intake: IV 800 350 700 Sodium Chloride 0.9% 1, 700 350 000 ml @ 100 mls/hr IV . Q10H [facility] Rx#:[id number] metroNIDAZOLE-NS PMX 500 100 700 mg In Saline 1 100ml.bag @ 100 mls/hr IVPB Q8HR [facility] Rx#:[id number] Intake, IV Titration 200 150 Amount Ampicillin-Sulbactam 3 gm 100 In Sodium Chloride 0.9% 100 ml @ 100 mls/hr IVPB Q8HR COUNTS INCLUDE 234 BEDS AT THE [facility] Rx#:[id number] Levofloxacin 750Mg-D5w 50 Pmx 750 mg In Dextrose/ Water 1 150ml.bag @ 100 mls/hr IVPB Q48H COUNTS INCLUDE 234 BEDS AT THE [facility] Rx#: [id number] Phytonadione 5 mg In 50 Sodium Chloride 0.9% 50 ml @ 100 mls/hr IVPB ONCE [facility] Rx#:[id number] Piperacillin-Tazobactam 3 50 .375 gm In Dextrose/Water 1 50ml.bag @ 12.5 mls/hr IVPB Q8HR COUNTS INCLUDE 234 BEDS AT THE [facility] Rx#: [id number] metroNIDAZOLE-NS PMX 500 100 mg In Saline 1 100ml.bag @ 100 mls/hr IVPB Q8HR COUNTS INCLUDE 234 BEDS AT THE [facility] Rx#:[id number] Oral 240 480 Blood Product 60 Cryoprecipitate Unit 10 [id number] Cryoprecipitate Unit 10 [id number] Cryoprecipitate Unit 10 [id number] Cryoprecipitate Unit 10 [id number] Cryoprecipitate Unit 10 [id number] Cryoprecipitate Unit 10 [id number] Output: Urine 700 700 700 Uretheral (Espinal) 700 Other: Voiding Method Indwelling Catheter Indwelling Catheter Indwelling Catheter # Bowel Movements 1 - Exam GENERAL EXAM: Alert, comfortable in no apparent distress. HEAD: Normocephalic. EYES: Normal reaction of pupils, equal size. NOSE: Clear with pink turbinates. THROAT: No erythema or exudates. NECK: No masses, no JVD. CHEST: No chest wall deformity. LUNGS: Equal air entry with no crackles, wheeze, rhonchi or dullness. CVS: S1 and S2 normal with no audible murmurs, regular rhythm. ABDOMEN: No hepatosplenomegaly, normal bowel sounds, no guarding or rigidity. SPINE: No scoliosis or deformity SKIN: No rashes CENTRAL NERVOUS SYSTEM: No focal deficits, tone is normal in all 4 extremities. Extremities: There is no significant peripheral edema. No clubbing, no cyanosis. Peripheral pulses are intact. - Labs CBC & Chem 7: 11/20/16 08:59 11/20/16 08:48 Labs: Abnormal Lab Results - Last 24 Hours (Table) 11/19/16 11/19/16 11/20/16 Range/Units 17:19 20:44 07:16 WBC (3.8-10.6) k/uL RBC (4.30-5.90) m/uL Hgb (13.0-17.5) gm/dL Hct (39.0-53.0) % Plt Count (150-450) k/uL PT (9.0-12.0) sec Fibrinogen (200-500) mg/dL Chloride (98-107) mmol/L Carbon Dioxide (22-30) mmol/L BUN (9-20) mg/dL Creatinine (0.66-1.25) mg/dL Glucose (74-99) mg/dL POC Glucose (mg/dL) 100 H 208 H 198 H (75-99) mg/dL Total Protein (6.3-8.2) g/dL Albumin (3.5-5.0) g/dL 11/20/16 11/20/16 11/20/16 Range/Units 08:48 08:59 08:59 WBC 3.5 L (3.8-10.6) k/uL RBC 3.02 L (4.30-5.90) m/uL Hgb 9.5 L (13.0-17.5) gm/dL Hct 29.3 L (39.0-53.0) % Plt Count 26 L* (150-450) k/uL PT 15.7 H (9.0-12.0) sec Fibrinogen 94 L* (200-500) mg/dL Chloride 109 H (98-107) mmol/L Carbon Dioxide 17 L (22-30) mmol/L BUN 27 H (9-20) mg/dL Creatinine 1.74 H (0.66-1.25) mg/dL Glucose 267 H (74-99) mg/dL POC Glucose (mg/dL) (75-99) mg/dL Total Protein 4.9 L (6.3-8.2) g/dL Albumin 2.8 L (3.5-5.0) g/dL 11/20/16 Range/Units 11:30 WBC (3.8-10.6) k/uL RBC (4.30-5.90) m/uL Hgb (13.0-17.5) gm/dL Hct (39.0-53.0) % Plt Count (150-450) k/uL PT (9.0-12.0) sec Fibrinogen (200-500) mg/dL Chloride (98-107) mmol/L Carbon Dioxide (22-30) mmol/L BUN (9-20) mg/dL Creatinine (0.66-1.25) mg/dL Glucose (74-99) mg/dL POC Glucose (mg/dL) 261 H (75-99) mg/dL Total Protein (6.3-8.2) g/dL Albumin (3.5-5.0) g/dL Assessment and Plan Plan: Pression: #1 Initial presentation with abdominal pain and suspected small bowel obstruction as well as acute ileitis. The patient responded to IV antibiotics and IV hydration. Most likely acute inflammatory bowel disease. Workup for IBD is pending. #2 Small right-sided pleural effusion most likely secondary to aggressive hydration and possibly a right lower lobe atelectasis. The effusion is too small to consider for thoracentesis. #3 Pancytopenia with low fibrinogen of unclear etiology. #4 Acute on chronic kidney disease, stage III. #5 Diabetes mellitus, type II. #6 Hypertension. #7 Hyperlipidemia. #8 Macular degeneration. #9 History of bowel resection. Plan: The patient was seen and evaluated by Dr. Lewis. We'll continue with his bronchodilators, and biotics, IV Solu-Medrol. He is again encouraged regarding increased use the incentive spirometer and cough and deep breathing exercises. The patient is in no acute pulmonary distress and is maintaining good O2 saturations on room air. The ultrasound did reveal a 10.9 cm pleural effusion however based on his pancytopenia and low fibrinogen counts we'll hold off on thoracentesis for now. We will repeat his chest x-ray in the a.m. We'll continue to follow make further recommendations based on his clinical status.
[2016-11-20 17:42] LABS: Glucose,Whole Blood 275 mg/dL (75-99)
--- NOTE | 2016-11-20 18:03 | P.PN ---
Subjective Principal diagnosis: Enteritis Patient states "I feel great today". He was having some shortness of breath yesterday evening that he says is improved. He has been up in the chair most of the day. He has ambulated to the end of the hallway and back. He ate all of his lunch according to his daughter. He is passing flatus but no bowel movement. He has been slightly tachycardic in the low 100s. His white blood cell count 3.5 hemoglobin 9.5 platelets are down to 26. There are 15% bands present on his differential. Creatinine 1.74 CO2 level 17. Objective - Vital Signs Vital signs: Vital Signs Temp 97.8 F 11/20/16 15:00 Pulse 103 H 11/20/16 16:11 Resp 18 11/20/16 16:00 BP 133/63 11/20/16 15:00 Pulse Ox 94 L 11/20/16 15:00 Intake & Output 11/19/16 11/20/16 11/20/16 18:59 06:59 18:59 Intake Total 5909 359 9511 Output Total 849 336 2651 Balance 360 -110 -70 Weight 85.275 kg 85.275 kg Intake: IV 800 350 700 Sodium Chloride 0.9% 1, 700 350 000 ml @ 100 mls/hr IV . Q10H [facility] Rx#:[id number] metroNIDAZOLE-NS PMX 500 100 700 mg In Saline 1 100ml.bag @ 100 mls/hr IVPB Q8HR [facility] Rx#:[id number] Intake, IV Titration 200 150 Amount Ampicillin-Sulbactam 3 gm 100 In Sodium Chloride 0.9% 100 ml @ 100 mls/hr IVPB Q8HR [facility] Rx#:[id number] Levofloxacin 750Mg-D5w 50 Pmx 750 mg In Dextrose/ Water 1 150ml.bag @ 100 mls/hr IVPB Q48H [facility] Rx#: [id number] Phytonadione 5 mg In 50 Sodium Chloride 0.9% 50 ml @ 100 mls/hr IVPB ONCE [facility] Rx#:[id number] Piperacillin-Tazobactam 3 50 .375 gm In Dextrose/Water 1 50ml.bag @ 12.5 mls/hr IVPB Q8HR [facility] Rx#: [id number] metroNIDAZOLE-NS PMX 500 100 mg In Saline 1 100ml.bag @ 100 mls/hr IVPB Q8HR [facility] Rx#:[id number] Oral 240 480 Blood Product 60 Cryoprecipitate Unit 10 [id number] Cryoprecipitate Unit 10 [id number] Cryoprecipitate Unit 10 [id number] Cryoprecipitate Unit 10 [id number] Cryoprecipitate Unit 10 [id number] Cryoprecipitate Unit 10 [id number] Output: Urine 704 460 4253 Uretheral (Espinal) 700 Other: Voiding Method Indwelling Catheter Indwelling Catheter Indwelling Catheter # Bowel Movements 1 - Exam Abdomen: Soft, distended, minimal lower quadrant tenderness - Labs CBC & Chem 7: 11/20/16 08:59 11/20/16 08:48 Labs: Abnormal Lab Results - Last 24 Hours (Table) 11/19/16 11/20/16 11/20/16 Range/Units 20:44 07:16 08:48 WBC (3.8-10.6) k/uL RBC (4.30-5.90) m/uL Hgb (13.0-17.5) gm/dL Hct (39.0-53.0) % Plt Count (150-450) k/uL PT (9.0-12.0) sec Fibrinogen (200-500) mg/dL Chloride 109 H (98-107) mmol/L Carbon Dioxide 17 L (22-30) mmol/L BUN 27 H (9-20) mg/dL Creatinine 1.74 H (0.66-1.25) mg/dL Glucose 267 H (74-99) mg/dL POC Glucose (mg/dL) 208 H 198 H (75-99) mg/dL Total Protein 4.9 L (6.3-8.2) g/dL Albumin 2.8 L (3.5-5.0) g/dL 11/20/16 11/20/16 11/20/16 Range/Units 08:59 08:59 11:30 WBC 3.5 L (3.8-10.6) k/uL RBC 3.02 L (4.30-5.90) m/uL Hgb 9.5 L (13.0-17.5) gm/dL Hct 29.3 L (39.0-53.0) % Plt Count 26 L* (150-450) k/uL PT 15.7 H (9.0-12.0) sec Fibrinogen 94 L* (200-500) mg/dL Chloride (98-107) mmol/L Carbon Dioxide (22-30) mmol/L BUN (9-20) mg/dL Creatinine (0.66-1.25) mg/dL Glucose (74-99) mg/dL POC Glucose (mg/dL) 261 H (75-99) mg/dL Total Protein (6.3-8.2) g/dL Albumin (3.5-5.0) g/dL 11/20/16 Range/Units 17:34 WBC (3.8-10.6) k/uL RBC (4.30-5.90) m/uL Hgb (13.0-17.5) gm/dL Hct (39.0-53.0) % Plt Count (150-450) k/uL PT (9.0-12.0) sec Fibrinogen (200-500) mg/dL Chloride (98-107) mmol/L Carbon Dioxide (22-30) mmol/L BUN (9-20) mg/dL Creatinine (0.66-1.25) mg/dL Glucose (74-99) mg/dL POC Glucose (mg/dL) 275 H (75-99) mg/dL Total Protein (6.3-8.2) g/dL Albumin (3.5-5.0) g/dL Microbiology - Last 24 Hours (Table) 11/19/16 13:02 Blood Culture - Preliminary Blood No Growth after 24 hours 11/19/16 12:55 Blood Culture - Preliminary Blood No Growth after 24 hours Assessment and Plan (1) Enteritis Narrative/Plan: Continue slowly advancing diet. Continue antibiotics and IV steroids for possible inflammatory bowel disease. Repeat lab work tomorrow morning including lactic acid level. Continue PT OT. We'll follow closely. Prognosis remains guarded. Status: Acute
--- NOTE | 2016-11-20 20:02 | CONS ---
DATE OF CONSULTATION: 11/20/2016 REASON FOR CONSULTATION: 1. Pneumonia. 2. Ileitis. HISTORY OF PRESENT ILLNESS: The patient is an 86-year-old male who presented to the emergency room at [facility] on 11/10/2016 with chief complaints of abdominal pain. Pain has been in the lower abdominal area. The patient also has associated nausea and vomiting with it. Patient at that time was evaluated by the ER physician. The patient did have a CT of the abdomen and pelvis, which did show long segment of terminal ileum with extensive inflammatory changes and wall thickening up to 1.7 cm; new compared to old CT scan and could relate to the Crohn's disease. No free air or an abscess. For the same, the patient has been evaluated by General Surgery and the GI services. The patient did have a repeat CT on 11/16/2016, which did show overall mild interval progression of the findings when compared to the prior study with a right pleural effusion and increasing pleural fluid. I was asked to see the patient last evening for concern regarding ileitis as well as pneumonia. The patient did not have any stool studies done; however, he did have blood cultures requested yesterday that has been negative. No microbiology prior to that. The patient did have a normal down to 1.9. Today, at the time of my evaluation the patient's overall abdominal pain has improved. Denies having any further nausea, vomiting. Denies any diarrhea. Denies having any chest pain or shortness of breath. He has very mild cough, but not bringing up any sputum. Denies having any URI symptoms. REVIEW OF SYSTEMS: CONSTITUTIONAL: Positive for weakness. No high-grade fever. EYES: No complaint. ENT: No complaint. RESPIRATORY: As per HPI. CARDIOVASCULAR: No complaint. GENITOURINARY: No complaint. GASTROINTESTINAL: As per HPI. MUSCULOSKELETAL: No complaint. INTEGUMENTARY: No complaint. PSYCHOLOGICAL: No complaint. ENDOCRINAL: No complaint. NEUROLOGICAL: No complaint. PAST MEDICAL HISTORY: Hypertension, hyperlipidemia, diabetes mellitus, macular degeneration left eye. PAST SURGICAL HISTORY: Cholecystectomy, bowel resection, left hip replacement. SOCIAL HISTORY: Former smoker, denies drinking or drug use. FAMILY HISTORY: Father at age of 55 from cardiac issue. Mother at age 55 from abdominal cancer. ALLERGIES: LACTOSE. MEDICATIONS: Currently includes the patient is on DuoNeb, Xanax, Norvasc, Lipitor, Lantus, Humalog, levofloxacin, Solu-Medrol, Flagyl, morphine, pip-tazobactam. On examination, blood pressure is 133/63 with a pulse of 99, temperature 97.8. He is 94% on room air. General description is an elderly male, up in the bed in no distress. No tachypnea or accessory muscle of respiration use. HEENT examination shows slight pallor. No scleral icterus. Oral mucosa membrane dry. NECK: Trachea central. There is no thyromegaly. LUNGS: Unlabored breathing. Clear to auscultation anteriorly with some decreased breath sounds at the base. No wheeze or crackle. HEART: S1, S2 with regular rate and rhythm. ABDOMEN: Soft, slightly distended. No guarding or rigidity. No organomegaly. EXTREMITIES: No edema of the feet. SKIN: No rash or mass palpable. NEUROLOGICAL: The patient is awake, alert, oriented x3. Mood and affect normal. LABS: Hemoglobin is 9.5, white count 3.5, platelet count is 26 with a BUN of 27 and creatinine 1.74. Influenza A and B has been negative. He did have a chest x-ray on the sixth, which showed right bibasilar infiltrate or atelectasis, small right pleural effusion. DIAGNOSTIC IMPRESSION AND PLAN: 1. The patient with abnormal x-rays with small infiltrate right base and some effusion, more likely representing atelectasis. Clinically the patient not behaving as pneumonia. He did have a mild cough. Not bringing up any sputum. The patient not running any fever and no significant elevated white count. 2. Patient with ileitis and work-up is in progress for possible inflammatory bowel disease, which is more difficult. Clinically doubt infectious colitis as the patient with no fever and no significant diarrhea. PLAN: 1. We will try to obtain sputum for culture and sensitivity. 2. Patient advised incentive spirometry. 3. A short course of Zosyn while condition stabilizes. 4. Will follow up on the clinical condition and cultures to further adjust the medication if needed. Thank you for this consultation. Will follow this patient along with you. ARTURO
[2016-11-20 20:19] LABS: Glucose,Whole Blood 320 mg/dL (75-99)
[2016-11-20] MEDS ORDERED: FUROSEMIDE 10 MG/ML 4 ML VIAL IV STA (21:35)
[2016-11-20] MEDS ORDERED: INSULIN LISPRO (humaLOG) 300 UNIT/3 ML VIAL SQ ONE (21:36)
[2016-11-20] MEDS: ATORVASTATIN 10 MG TAB PO SCH ×3 (22:05→22:36)
[2016-11-20] MEDS: INSULIN GLARGINE 100 UNIT/ML 10 ML VIAL SQ SCH (22:14)
[2016-11-21] MEDS: methylPREDNISolone SOD SUCCI 125 MG/2 ML VIAL IV SCH ×5 (00:33→23:38)
[2016-11-21] MEDS: PIPERACILLIN-TAZOBACTAM 3.375 GM in DEXTROSE/WATER 1 50ML.BAG IVPB SCH ×4 (00:33→23:37)
[2016-11-21] MEDS: SODIUM CHLORIDE 0.9% 1,000 ML IV SCH ×7 (06:58→22:18)
[2016-11-21] MEDS: IPRATROPIUM-ALBUTEROL 3 ML NEB INHALATION SCH ×4 (07:51→20:00)
[2016-11-21 07:59] LABS: Glucose,Whole Blood 212 mg/dL (75-99)
[2016-11-21] MEDS: INSULIN LISPRO (humaLOG) 300 UNIT/3 ML VIAL SQ SCH ×7 (08:49→20:58)
[2016-11-21] MEDS: amLODIPine 5 MG TAB PO SCH (08:49)
[2016-11-21] MEDS: PANTOPRAZOLE 40 MG TABLET PO SCH (08:50)
[2016-11-21] MEDS: metroNIDAZOLE 500 MG TAB PO SCH ×3 (08:50→23:38)
[2016-11-21] MEDS: VIT A,C & E-LUTEIN-MINERALS 1 EACH TAB PO SCH (08:51)
[2016-11-21 09:51] LABS: INR 1.8 (<1.1)
[2016-11-21 10:13] LABS: Calcium 9.9 mg/dL (8.4-10.2); Potassium 3.3 mmol/L (3.5-5.1); Total Bilirubin 0.8 mg/dL (0.2-1.3); Total Protein 4.8 g/dL (6.3-8.2)
[2016-11-21 10:14] LABS: CH 30.5; CHCM 32.5; HCT 26.7 % (39.0-53.0); HDW 2.83; HGB 8.4 gm/dL (13.0-17.5); Immature Gran Flag Slight; MCH 29.9 pg (25.0-35.0); MCHC 31.5 g/dL (31.0-37.0); MCV 94.9 fL (80.0-100.0); RBC 2.81 m/uL (4.30-5.90); RDW 15.6 % (11.5-15.5); WBC 8.1 k/uL (3.8-10.6); WBC (Perox) 8.19
[2016-11-21 11:11] LABS: Add Differential Manual Differential
[2016-11-21 11:16] LABS: Band Neutrophils % 10.5 %; Manual Review Performed; Nucleated Red Blood Cells 0 /100 WBC (0-0); Total Cells Counted 200
[2016-11-21 11:54] LABS: Glucose,Whole Blood 248 mg/dL (75-99)
[2016-11-21] MEDS: LEVOFLOXACIN 750MG-D5W PMX 750 MG in DEXTROSE/WATER 1 150ML.BAG IVPB SCH (11:59)
--- NOTE | 2016-11-21 12:27 | P.PN ---
Subjective Principal diagnosis: Enteritis Patient says he feels well again today. Denies abdominal pain. He thinks he is improving. He is tolerating his diet. He ate most of his breakfast. He is passing flatus. No bowel movement today or last night. His labs looked very similar. White blood cell count is normal at 8 platelets remained low at 28. His lactic acid was elevated at 2.8. Objective - Vital Signs Vital signs: Vital Signs Temp 97.9 F 11/20/16 21:10 Pulse 98 11/21/16 08:00 Resp 20 11/21/16 08:00 BP 146/65 11/21/16 07:00 Pulse Ox 96 11/21/16 07:00 Intake & Output 11/20/16 11/21/16 11/21/16 18:59 06:59 18:59 Intake Total 1330 1040 Output Total 1400 1900 2600 Balance -70 -860 -2600 Weight 85.275 kg 85.275 kg Intake: IV 700 550 Piperacillin-Tazobactam 3 50 .375 gm In Dextrose/Water 1 50ml.bag @ 12.5 mls/hr IVPB Q8HR [facility] Rx#: [id number] Sodium Chloride 0.9% 1, 400 000 ml @ 40 mls/hr IV . Q24H [facility] Rx#:[id number] metroNIDAZOLE-NS PMX 500 700 100 mg In Saline 1 100ml.bag @ 100 mls/hr IVPB Q8HR [facility] Rx#:[id number] Intake, IV Titration 150 Amount Piperacillin-Tazobactam 3 50 .375 gm In Dextrose/Water 1 50ml.bag @ 12.5 mls/hr IVPB Q8HR [facility] Rx#: [id number] metroNIDAZOLE-NS PMX 500 100 mg In Saline 1 100ml.bag @ 100 mls/hr IVPB Q8HR [facility] Rx#:[id number] Oral 480 490 Output: Urine 1400 1900 2600 Uretheral (Espinal) 1900 1900 Other: Voiding Method Indwelling Catheter Indwelling Catheter Indwelling Catheter # Bowel Movements 1 1 - Exam Abdomen: Soft, mild distention, no appreciable tenderness - Labs CBC & Chem 7: 11/21/16 08:27 11/21/16 08:27 Labs: Abnormal Lab Results - Last 24 Hours (Table) 11/20/16 11/20/16 11/21/16 Range/Units 17:34 20:16 07:55 RBC (4.30-5.90) m/uL Hgb (13.0-17.5) gm/dL Hct (39.0-53.0) % RDW (11.5-15.5) % Plt Count (150-450) k/uL PT (9.0-12.0) sec Potassium (3.5-5.1) mmol/L Chloride (98-107) mmol/L Carbon Dioxide (22-30) mmol/L BUN (9-20) mg/dL Creatinine (0.66-1.25) mg/dL Glucose (74-99) mg/dL POC Glucose (mg/dL) 275 H 320 H 212 H (75-99) mg/dL Plasma Lactic Acid Harsha (0.7-2.0) mmol/L Total Protein (6.3-8.2) g/dL Albumin (3.5-5.0) g/dL 11/21/16 11/21/16 11/21/16 Range/Units 08:27 08:27 08:27 RBC 2.81 L (4.30-5.90) m/uL Hgb 8.4 L (13.0-17.5) gm/dL Hct 26.7 L (39.0-53.0) % RDW 15.6 H (11.5-15.5) % Plt Count 28 L* (150-450) k/uL PT 17.0 H (9.0-12.0) sec Potassium 3.3 L (3.5-5.1) mmol/L Chloride 108 H (98-107) mmol/L Carbon Dioxide 20 L (22-30) mmol/L BUN 31 H (9-20) mg/dL Creatinine 1.83 H (0.66-1.25) mg/dL Glucose 208 H (74-99) mg/dL POC Glucose (mg/dL) (75-99) mg/dL Plasma Lactic Acid Harsha (0.7-2.0) mmol/L Total Protein 4.8 L (6.3-8.2) g/dL Albumin 2.8 L (3.5-5.0) g/dL 11/21/16 11/21/16 Range/Units 08:27 11:30 RBC (4.30-5.90) m/uL Hgb (13.0-17.5) gm/dL Hct (39.0-53.0) % RDW (11.5-15.5) % Plt Count (150-450) k/uL PT (9.0-12.0) sec Potassium (3.5-5.1) mmol/L Chloride (98-107) mmol/L Carbon Dioxide (22-30) mmol/L BUN (9-20) mg/dL Creatinine (0.66-1.25) mg/dL Glucose (74-99) mg/dL POC Glucose (mg/dL) 248 H (75-99) mg/dL Plasma Lactic Acid Harsha 2.8 H* (0.7-2.0) mmol/L Total Protein (6.3-8.2) g/dL Albumin (3.5-5.0) g/dL Microbiology - Last 24 Hours (Table) 11/19/16 13:02 Blood Culture - Preliminary Blood No Growth after 24 hours 11/19/16 12:55 Blood Culture - Preliminary Blood No Growth after 24 hours Assessment and Plan (1) Enteritis Narrative/Plan: Continue antibiotics and steroids. Continue advancing diet as tolerated. Repeat Lactic acid tomorrow. Status: Acute
--- NOTE | 2016-11-21 13:03 | P.PN ---
Subjective This is a an 86-year-old white male who was admitted initially on 11/10/2016, his main presentation was mostly a GI presentation with abdominal pain and constipation. Since then the patient has been seen by many consultants, and his CT of the abdomen showed thickening of the terminal ileum patient responded gradually to supportive care, antibiotics, and it was felt that the patient may have ileitis and partial small bowel obstruction. Repeat CT of the abdomen on showed some progression of the thickening and a new thickening noted in the descending colon. Patient is being considered for possible inflammatory bowel disease and GI has been consulted. Initially the patient had a normal chest x-ray on presentation, however follow-up x-rays showed some atelectasis at the right base and a small right pleural effusion. Patient is complaining of dry hacking cough, some shortness of breath, no hemoptysis no fever no chills , and the cough is nonproductive. He was seen in consultation by Dr. Lewis. He is seen again today 11/21/2016 in follow-up on the regular medical floor. He is awake and alert in no acute distress. He's been up ambulating in the hallway with physical therapy present. He denies any worsening shortness of breath, cough or congestion. He is maintaining O2 saturations in the upper 90s on room air. His been hemodynamically stable. Afebrile. His hemoglobin remained stable at 8.4. His white count, has climbed to 8.1. His platelets remain low at 28,000. Chest x-ray is pending. Objective - Vital Signs Vital signs: Vital Signs Temp 97.9 F 11/20/16 21:10 Pulse 98 11/21/16 08:00 Resp 20 11/21/16 08:00 BP 146/65 11/21/16 07:00 Pulse Ox 96 11/21/16 07:00 Intake & Output 11/20/16 11/21/16 11/21/16 18:59 06:59 18:59 Intake Total 1330 1040 Output Total 1400 1900 2600 Balance -70 -860 -2600 Weight 85.275 kg 85.275 kg Intake: IV 700 550 Piperacillin-Tazobactam 3 50 .375 gm In Dextrose/Water 1 50ml.bag @ 12.5 mls/hr IVPB Q8HR [facility] Rx#: [id number] Sodium Chloride 0.9% 1, 400 000 ml @ 40 mls/hr IV . Q24H [facility] Rx#:[id number] metroNIDAZOLE-NS PMX 500 700 100 mg In Saline 1 100ml.bag @ 100 mls/hr IVPB Q8HR [facility] Rx#:[id number] Intake, IV Titration 150 Amount Piperacillin-Tazobactam 3 50 .375 gm In Dextrose/Water 1 50ml.bag @ 12.5 mls/hr IVPB Q8HR [facility] Rx#: [id number] metroNIDAZOLE-NS PMX 500 100 mg In Saline 1 100ml.bag @ 100 mls/hr IVPB Q8HR [facility] Rx#:[id number] Oral 480 490 Output: Urine 1400 1900 2600 Uretheral (Espinal) 1900 1900 Other: Voiding Method Indwelling Catheter Indwelling Catheter Indwelling Catheter # Bowel Movements 1 1 - Exam GENERAL EXAM: Alert, comfortable in no apparent distress. HEAD: Normocephalic. EYES: Normal reaction of pupils, equal size. NOSE: Clear with pink turbinates. THROAT: No erythema or exudates. NECK: No masses, no JVD. CHEST: No chest wall deformity. LUNGS: Equal air entry with no crackles, wheeze, rhonchi or dullness. CVS: S1 and S2 normal with no audible murmurs, regular rhythm. ABDOMEN: No hepatosplenomegaly, normal bowel sounds, no guarding or rigidity. SPINE: No scoliosis or deformity SKIN: No rashes CENTRAL NERVOUS SYSTEM: No focal deficits, tone is normal in all 4 extremities. Extremities: There is no significant peripheral edema. No clubbing, no cyanosis. Peripheral pulses are intact. - Labs CBC & Chem 7: 11/21/16 08:27 11/21/16 08:27 Labs: Abnormal Lab Results - Last 24 Hours (Table) 11/20/16 11/20/16 11/21/16 Range/Units 17:34 20:16 07:55 RBC (4.30-5.90) m/uL Hgb (13.0-17.5) gm/dL Hct (39.0-53.0) % RDW (11.5-15.5) % Plt Count (150-450) k/uL PT (9.0-12.0) sec Potassium (3.5-5.1) mmol/L Chloride (98-107) mmol/L Carbon Dioxide (22-30) mmol/L BUN (9-20) mg/dL Creatinine (0.66-1.25) mg/dL Glucose (74-99) mg/dL POC Glucose (mg/dL) 275 H 320 H 212 H (75-99) mg/dL Plasma Lactic Acid Harsha (0.7-2.0) mmol/L Total Protein (6.3-8.2) g/dL Albumin (3.5-5.0) g/dL 11/21/16 11/21/16 11/21/16 Range/Units 08:27 08:27 08:27 RBC 2.81 L (4.30-5.90) m/uL Hgb 8.4 L (13.0-17.5) gm/dL Hct 26.7 L (39.0-53.0) % RDW 15.6 H (11.5-15.5) % Plt Count 28 L* (150-450) k/uL PT 17.0 H (9.0-12.0) sec Potassium 3.3 L (3.5-5.1) mmol/L Chloride 108 H (98-107) mmol/L Carbon Dioxide 20 L (22-30) mmol/L BUN 31 H (9-20) mg/dL Creatinine 1.83 H (0.66-1.25) mg/dL Glucose 208 H (74-99) mg/dL POC Glucose (mg/dL) (75-99) mg/dL Plasma Lactic Acid Harsha (0.7-2.0) mmol/L Total Protein 4.8 L (6.3-8.2) g/dL Albumin 2.8 L (3.5-5.0) g/dL 11/21/16 11/21/16 Range/Units 08:27 11:30 RBC (4.30-5.90) m/uL Hgb (13.0-17.5) gm/dL Hct (39.0-53.0) % RDW (11.5-15.5) % Plt Count (150-450) k/uL PT (9.0-12.0) sec Potassium (3.5-5.1) mmol/L Chloride (98-107) mmol/L Carbon Dioxide (22-30) mmol/L BUN (9-20) mg/dL Creatinine (0.66-1.25) mg/dL Glucose (74-99) mg/dL POC Glucose (mg/dL) 248 H (75-99) mg/dL Plasma Lactic Acid Harsha 2.8 H* (0.7-2.0) mmol/L Total Protein (6.3-8.2) g/dL Albumin (3.5-5.0) g/dL Microbiology - Last 24 Hours (Table) 11/19/16 13:02 Blood Culture - Preliminary Blood No Growth after 24 hours 11/19/16 12:55 Blood Culture - Preliminary Blood No Growth after 24 hours Assessment and Plan Plan: Pression: #1 Initial presentation with abdominal pain and suspected small bowel obstruction as well as acute ileitis. The patient responded to IV antibiotics and IV hydration. Most likely acute inflammatory bowel disease. Workup for IBD is pending. #2 Small right-sided pleural effusion most likely secondary to aggressive hydration and possibly a right lower lobe atelectasis. The effusion is too small to consider for thoracentesis. #3 Pancytopenia with low fibrinogen of unclear etiology. #4 Acute on chronic kidney disease, stage III. #5 Diabetes mellitus, type II. #6 Hypertension. #7 Hyperlipidemia. #8 Macular degeneration. #9 History of bowel resection. Plan: The patient was seen and evaluated by Dr. Lewis. We will repeat his chest x- ray today. We'll continue with his bronchodilators, antibiotics, IV Solu- Medrol. He is again encouraged regarding increased use the incentive spirometer and cough and deep breathing exercises. The patient is in no acute pulmonary distress and is maintaining good O2 saturations on room air. The ultrasound from 11/19/2016 did reveal a 10.9 cm pleural effusion however based on his pancytopenia and low fibrinogen counts we'll hold off on thoracentesis for now. We will increase his activity as tolerated. We'll continue to follow make further recommendations based on his clinical status.
--- NOTE | 2016-11-21 14:40 | XR ---
EXAMINATION TYPE: XR chest 1V portable DATE OF EXAM: 11/21/2016 2:30 PM Comparison: 11/19/2016 Clinical History: 86-year-old male Pleural effusion Findings: The cardiomediastinal silhouette, aorta, and pulmonary vasculature are within normal limits. [place] ri ght greater than left pleural effusions with adjacent opacity possibly slightly increased on the left . Impression: Small right greater than left pleural effusions with adjacent atelectasis and/or consolidation, sligh tly increased on the left.
--- NOTE | 2016-11-21 16:16 | P.PN ---
Subjective Principal diagnosis: Enteritis Patient is an 86-year-old white male admitted with complaints of abdominal pain with evidence of partial small bowel obstruction and enteritis. Patient also with evidence of patchy pneumonia or atelectasis in the posterior lung base per x-ray on admission. Admission labs with evidence of pancytopenia. GI service, surgical service, and hematology service are following patient. Patient is evaluated at bedside. Patient states he feels the same as he did yesterday. Denies chills, nausea, vomiting, shortness of breath, chest pain, or abdominal pain. Patient reports flatus but no bowel movements. Urine output adequate. Afebrile. Hemodynamically stable. Patient has been started on Solu-Medrol empirically for possibility of inflammatory bowel disease. Patient did undergo ultrasound of chest with evidence of right pleural effusion on the right side measuring more than 10 cm. lactic acid slightly elevated at 2.3 with plan to repeat in a.m. per surgery. No plans for thoracentesis, endoscopy, or surgical intervention at this time. Objective - Vital Signs Vital signs: Vital Signs Temp 98.0 F 11/21/16 15:17 Pulse 85 11/21/16 15:17 Resp 18 11/21/16 15:17 BP 130/82 11/21/16 15: Pulse Ox 97 11/21/16 15:00 Intake & Output 11/20/16 11/21/16 11/21/16 18:59 06:59 18:59 Intake Total 1330 1040 40 Output Total 1400 1900 2600 Balance -70 -860 -2560 Weight 85.275 kg 85.275 kg Intake: IV 700 550 Piperacillin-Tazobactam 3 50 .375 gm In Dextrose/Water 1 50ml.bag @ 12.5 mls/hr IVPB Q8HR [facility] Rx#: [id number] Sodium Chloride 0.9% 1, 400 000 ml @ 40 mls/hr IV . Q24H [facility] Rx#:[id number] metroNIDAZOLE-NS PMX 500 700 100 mg In Saline 1 100ml.bag @ 100 mls/hr IVPB Q8HR [facility] Rx#:[id number] Intake, IV Titration 150 Amount Piperacillin-Tazobactam 3 50 .375 gm In Dextrose/Water 1 50ml.bag @ 12.5 mls/hr IVPB Q8HR [facility] Rx#: [id number] metroNIDAZOLE-NS PMX 500 100 mg In Saline 1 100ml.bag @ 100 mls/hr IVPB Q8HR [facility] Rx#:[id number] Oral 480 490 Blood Product 40 Cryoprecipitate Unit 10 [id number] Cryoprecipitate Unit 10 [id number] Cryoprecipitate Unit 10 [id number] Cryoprecipitate Unit 10 [id number] Output: Urine 1400 1900 2600 Uretheral (Espinal) 1900 1900 Other: Voiding Method Indwelling Catheter Indwelling Catheter Indwelling Catheter # Voids 2 # Bowel Movements 1 1 - Exam GENERAL: Pt awake and alert, in no acute distress. HEAD: Atraumatic, normocephalic. EYES: Pupils equal and round. Sclera anicteric, conjunctiva are normal. ENT: Moist mucous membranes. NECK:Normal range of motion, supple without lymphadenopathy or JVD. LUNGS: Breath sounds diminished with crackles to right posterior lobe. No wheezing at this time. HEART: Heart S1, S2, no S3 or S4. Regular rate and rhythm. No murmurs, rubs or gallops. ABDOMEN: Soft, nontender, distended, hypoactive bowel sounds, No guarding, no rebound. EXTREMITIES: 2+ peripheral pulses. No edema. No calf tenderness. NEUROLOGICAL: Pt oriented x 3. No focal deficits. PSYCH: Normal mood, normal affect. SKIN: Warm, dry, intact. Normal turgor. - Labs CBC & Chem 7: 11/21/16 08:27 11/21/16 08:27 Labs: Abnormal Lab Results - Last 24 Hours (Table) 11/20/16 11/20/16 11/21/16 Range/Units 17:34 20:16 07:55 RBC (4.30-5.90) m/uL Hgb (13.0-17.5) gm/dL Hct (39.0-53.0) % RDW (11.5-15.5) % Plt Count (150-450) k/uL PT (9.0-12.0) sec Potassium (3.5-5.1) mmol/L Chloride (98-107) mmol/L Carbon Dioxide (22-30) mmol/L BUN (9-20) mg/dL Creatinine (0.66-1.25) mg/dL Glucose (74-99) mg/dL POC Glucose (mg/dL) 275 H 320 H 212 H (75-99) mg/dL Plasma Lactic Acid Harsha (0.7-2.0) mmol/L Total Protein (6.3-8.2) g/dL Albumin (3.5-5.0) g/dL 11/21/16 11/21/16 11/21/16 Range/Units 08: 08:27 08:27 RBC 2.81 L (4.30-5.90) m/uL Hgb 8.4 L (13.0-17.5) gm/dL Hct 26.7 L (39.0-53.0) % RDW 15.6 H (11.5-15.5) % Plt Count 28 L* (150-450) k/uL PT 17.0 H (9.0-12.0) sec Potassium 3.3 L (3.5-5.1) mmol/L Chloride 108 H (98-107) mmol/L Carbon Dioxide 20 L (22-30) mmol/L BUN 31 H (9-20) mg/dL Creatinine 1.83 H (0.66-1.25) mg/dL Glucose 208 H (74-99) mg/dL POC Glucose (mg/dL) (75-99) mg/dL Plasma Lactic Acid Harsha (0.7-2.0) mmol/L Total Protein 4.8 L (6.3-8.2) g/dL Albumin 2.8 L (3.5-5.0) g/dL 11/21/16 11/21/16 Range/Units 08:27 11:30 RBC (4.30-5.90) m/uL Hgb (13.0-17.5) gm/dL Hct (39.0-53.0) % RDW (11.5-15.5) % Plt Count (150-450) k/uL PT (9.0-12.0) sec Potassium (3.5-5.1) mmol/L Chloride (98-107) mmol/L Carbon Dioxide (22-30) mmol/L BUN (9-20) mg/dL Creatinine (0.66-1.25) mg/dL Glucose (74-99) mg/dL POC Glucose (mg/dL) 248 H (75-99) mg/dL Plasma Lactic Acid Harsha 2.8 H* (0.7-2.0) mmol/L Total Protein (6.3-8.2) g/dL Albumin (3.5-5.0) g/dL Microbiology - Last 24 Hours (Table) 11/19/16 13:02 Blood Culture - Preliminary Blood No Growth after 48 hours 11/19/16 12:55 Blood Culture - Preliminary Blood No Growth after 48 hours Assessment and Plan Plan: Impression and plan: 1. Abdominal pain with distention suspect secondary to possible small bowel obstruction and enteritis. Surgical and GI consult in place, recommendations noted. At this time continue conservative management. Continue IV antibiotics. Continue IV hydration. Patient has been started on IV Solu- Medrol empirically for possibility of inflammatory bowel disease. 2. Right pleural effusion. Pulmonary service is following patient, no plans for thoracentesis at this point. 3. Chest x-ray with evidence of possible right basal pneumonia, possible nosocomial. Pulmonary consult requested along with ID consult. Continue patient on updraft treatments, change antibiotics to IV Levaquin and IV Zosyn for broad-spectrum coverage. Obtain sputum culture. Continue nebulized updraft treatments. Continue incentive spirometry for patient to use 10 times an hour while awake. 3. 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 Hematology consult in place, recommendations noted. 4. Anemia, normocytic. 6. Increased creatinine with possible acute on chronic kidney disease. Creatinine stable at 1.74. We'll hold lisinopril and metformin. Continue IV hydration. 7. Chronic kidney disease, stage III. 8. Increased random blood sugar, present on admission. 9. Low fibrinogen of unclear etiology. Hematology following. 10. Diabetes mellitus type 2. Hemoglobin A1c 7.3. Blood sugars elevated. Continue Lantus protocol. 11. Hypertension. Continue Norvasc. 12. Hyperlipidemia. Continue Lipitor. 13. Macular degeneration. 14. History of bowel resection. 15. History of cholecystectomy. 16. History of orthopedic surgery. Continue to monitor patient. Continue current medications. Continue supportive treatment and pain management. Continue GI and DVT prophylaxis. Continue to follow with consultants. Repeat CBC and BMP in a.m. The above impression and plan have been discussed and directed by Dr. Burnette. Ponce LE acting as scribe for Dr. Burnette.
[2016-11-21 17:33] LABS: Glucose,Whole Blood 287 mg/dL (75-99)
[2016-11-21] MEDS: FILGRASTIM-SNDZ 480 MCG/0.8 ML SYRINGE SQ SCH (17:35)
--- NOTE | 2016-11-21 20:38 | P.PN ---
Subjective Principal diagnosis: Pancytopenia, coagulopathy The pt is passing gas but has not had a BM for about 2 days. He denied any abd pain/n/v/obvious bleeding. No LE swelling Objective - Vital Signs Vital signs: Vital Signs Temp 98.0 F 11/21/16 15:17 Pulse 98 11/21/16 20:13 Resp 18 11/21/16 16:00 BP 130/82 11/21/16 15:17 Pulse Ox 97 11/21/16 15:00 Intake & Output 11/21/16 11/21/16 11/22/16 06:59 18:59 06:59 Intake Total 1040 40 Output Total 1900 6300 Balance -860 -6260 Weight 85.275 kg Intake: IV 550 Piperacillin-Tazobactam 3 50 .375 gm In Dextrose/Water 1 50ml.bag @ 12.5 mls/hr IVPB Q8HR [facility] Rx#: [id number] Sodium Chloride 0.9% 1, 400 000 ml @ 40 mls/hr IV . Q24H [facility] Rx#:[id number] metroNIDAZOLE-NS PMX 500 100 mg In Saline 1 100ml.bag @ 100 mls/hr IVPB Q8HR [facility] Rx#:[id number] Oral 490 Blood Product 40 Cryoprecipitate Unit 10 [id number] Cryoprecipitate Unit 10 [id number] Cryoprecipitate Unit 10 [id number] Cryoprecipitate Unit 10 [id number] Output: Urine 1900 6300 Uretheral (Espinal) 1900 3800 Other: Voiding Method Indwelling Catheter Indwelling Catheter # Voids 2 # Bowel Movements 1 - Constitutional General appearance: Present: no acute distress - EENT Eyes: Present: PERRLA ENT: Present: hearing grossly normal, normal oropharynx - Respiratory Respiratory: bilateral: CTA - Cardiovascular Rhythm: regular Heart sounds: normal: S1, S2 - Gastrointestinal General gastrointestinal: Present: normal bowel sounds, soft - Integumentary Integumentary: Present: normal - Musculoskeletal Musculoskeletal: Present: generalized weakness, strength equal bilaterally - Psychiatric Psychiatric: Present: A&O x's 3 - Labs CBC & Chem 7: 11/21/16 08:27 11/21/16 08:27 Labs: Abnormal Lab Results - Last 24 Hours (Table) 11/21/16 11/21/16 11/21/16 Range/Units 07:55 08:27 08:27 RBC 2.81 L (4.30-5.90) m/uL Hgb 8.4 L (13.0-17.5) gm/dL Hct 26.7 L (39.0-53.0) % RDW 15.6 H (11.5-15.5) % Plt Count 28 L* (150-450) k/uL PT 17.0 H (9.0-12.0) sec Potassium (3.5-5.1) mmol/L Chloride (98-107) mmol/L Carbon Dioxide (22-30) mmol/L BUN (9-20) mg/dL Creatinine (0.66-1.25) mg/dL Glucose (74-99) mg/dL POC Glucose (mg/dL) 212 H (75-99) mg/dL Plasma Lactic Acid Harsha (0.7-2.0) mmol/L Total Protein (6.3-8.2) g/dL Albumin (3.5-5.0) g/dL 11/21/16 11/21/16 11/21/16 Range/Units 08:27 08:27 11:30 RBC (4.30-5.90) m/uL Hgb (13.0-17.5) gm/dL Hct (39.0-53.0) % RDW (11.5-15.5) % Plt Count (150-450) k/uL PT (9.0-12.0) sec Potassium 3.3 L (3.5-5.1) mmol/L Chloride 108 H (98-107) mmol/L Carbon Dioxide 20 L (22-30) mmol/L BUN 31 H (9-20) mg/dL Creatinine 1.83 H (0.66-1.25) mg/dL Glucose 208 H (74-99) mg/dL POC Glucose (mg/dL) 248 H (75-99) mg/dL Plasma Lactic Acid Harsha 2.8 H* (0.7-2.0) mmol/L Total Protein 4.8 L (6.3-8.2) g/dL Albumin 2.8 L (3.5-5.0) g/dL 11/21/16 Range/Units 17:29 RBC (4.30-5.90) m/uL Hgb (13.0-17.5) gm/dL Hct (39.0-53.0) % RDW (11.5-15.5) % Plt Count (150-450) k/uL PT (9.0-12.0) sec Potassium (3.5-5.1) mmol/L Chloride (98-107) mmol/L Carbon Dioxide (22-30) mmol/L BUN (9-20) mg/dL Creatinine (0.66-1.25) mg/dL Glucose (74-99) mg/dL POC Glucose (mg/dL) 287 H (75-99) mg/dL Plasma Lactic Acid Harsha (0.7-2.0) mmol/L Total Protein (6.3-8.2) g/dL Albumin (3.5-5.0) g/dL Microbiology - Last 24 Hours (Table) 11/19/16 13:02 Blood Culture - Preliminary Blood No Growth after 48 hours 11/19/16 12:55 Blood Culture - Preliminary Blood No Growth after 48 hours Assessment and Plan (1) Pancytopenia Narrative/Plan: The pt's WBC is improved to 8.1. I will continue Filgrastim for today. Plt are mildly reduced further to 28. Hgb is overall stable in the 8-9 range. Labs reviewed with pt. Given labs on admission the drop is acute. Thus the clinical impression of an underlying MDS type process with further acute drop ( expected to be transient) is still most likely Status: Acute (2) Coagulopathy Narrative/Plan: Labs reviewed with pt. Fibrinogen is improved but still < 100 ( 94). I will thus given additional cryoprecipitate. Pt/INR remain elevated in the same range despite IV vitamin K, and normal liver enzymes. Thus the cause is not apparent so far. I will order a mixing study. IN the meantime, if the pt were to require any invasive procedure, pre procedure FFP/plt can be utilised. Continue to monitor coags Status: Acute
[2016-11-21 20:47] LABS: Glucose,Whole Blood 286 mg/dL (75-99)
[2016-11-21] MEDS: ATORVASTATIN 10 MG TAB PO SCH ×2 (20:57→21:02)
[2016-11-21] MEDS: INSULIN GLARGINE 100 UNIT/ML 10 ML VIAL SQ SCH (21:05)
--- NOTE | 2016-11-22 05:32 | PN ---
DATE OF SERVICE: 11/21/2016 Reason for followup is possible pneumonia. INTERVAL HISTORY: The patient is afebrile. Has been breathing comfortably. Did have cough, but unable to bring any sputum up. Denies having any chest pain. No abdominal pain. No nausea, vomiting or any diarrhea. On examination, blood pressure is 130/82 with a pulse of 85, temperature 98. He is 97% on room air. General description is an elderly male lying in bed in no distress. RESPIRATORY SYSTEM: Unlabored breathing with decreased breath sounds at the bases. No wheeze. HEART: S1, S2 regular rate and rhythm. ABDOMEN: Soft, no tenderness. Slightly distended though. EXTREMITIES: No edema of feet. LABS: Hemoglobin 8.4, white count 8.1 with a BUN of 31, creatinine 1.83. Blood culture obtained yesterday has been negative so far. Sputum not collected. DIAGNOSTIC IMPRESSION AND PLAN: Patient with right lower lobe atelectasis, effusion with a question of pneumonia. The patient is currently on empiric Zosyn, will be continued. We will try to obtain sputum to narrow down his antibiotics. The patient advised on incentive spirometry. Continue supportive care.
[2016-11-22] MEDS: methylPREDNISolone SOD SUCCI 125 MG/2 ML VIAL IV SCH ×4 (06:17→23:50)
[2016-11-22 07:23] LABS: Glucose,Whole Blood 190 mg/dL (75-99)
[2016-11-22] MEDS: PIPERACILLIN-TAZOBACTAM 3.375 GM in DEXTROSE/WATER 1 50ML.BAG IVPB SCH ×3 (07:55→23:51)
[2016-11-22] MEDS: metroNIDAZOLE 500 MG TAB PO SCH ×3 (07:55→23:51)
[2016-11-22] MEDS: PANTOPRAZOLE 40 MG TABLET PO SCH (07:55)
[2016-11-22] MEDS: VIT A,C & E-LUTEIN-MINERALS 1 EACH TAB PO SCH (07:55)
[2016-11-22] MEDS: amLODIPine 5 MG TAB PO SCH (07:56)
[2016-11-22] MEDS: INSULIN LISPRO (humaLOG) 300 UNIT/3 ML VIAL SQ SCH ×7 (07:56→21:10)
[2016-11-22] MEDS: IPRATROPIUM-ALBUTEROL 3 ML NEB INHALATION SCH ×4 (08:09→21:06)
[2016-11-22 09:00] LABS: Anisocytosis Slight; Aty Lym Flag Moderate; CH 30.1; CHCM 31.6; HCT 23.8 % (39.0-53.0); HDW 2.72; HGB 7.8 gm/dL (13.0-17.5); MCH 31.6 pg (25.0-35.0); MCHC 32.8 g/dL (31.0-37.0); MCV 96.2 fL (80.0-100.0); Mean Platelet Volume 11.2; RBC 2.47 m/uL (4.30-5.90); WBC 9.7 k/uL (3.8-10.6); WBC (Perox) 10.54
[2016-11-22 09:03] LABS: INR 1.6 (<1.1); Partial Thromboplastin Time 24.1 sec (22.0-30.0); Prothrombin Time 15.2 sec (9.0-12.0)
[2016-11-22 09:04] LABS: Calcium 10.2 mg/dL (8.4-10.2); Potassium 4.1 mmol/L (3.5-5.1)
[2016-11-22 09:35] LABS: Add Differential Manual Differential
[2016-11-22 09:40] LABS: Manual Review Performed; Nucleated Red Blood Cells 0 /100 WBC (0-0); Total Cells Counted 200
[2016-11-22 11:35] LABS: Fibrinogen <80 mg/dL (200-500)
[2016-11-22 12:49] LABS: Glucose,Whole Blood 313 mg/dL (75-99)
--- NOTE | 2016-11-22 14:03 | P.PN ---
Subjective This is a an 86-year-old white male who was admitted initially on 11/10/2016, his main presentation was mostly a GI presentation with abdominal pain and constipation. Since then the patient has been seen by many consultants, and his CT of the abdomen showed thickening of the terminal ileum patient responded gradually to supportive care, antibiotics, and it was felt that the patient may have ileitis and partial small bowel obstruction. Repeat CT of the abdomen on showed some progression of the thickening and a new thickening noted in the descending colon. Patient is being considered for possible inflammatory bowel disease and GI has been consulted. Initially the patient had a normal chest x-ray on presentation, however follow-up x-rays showed some atelectasis at the right base and a small right pleural effusion. Patient is complaining of dry hacking cough, some shortness of breath, no hemoptysis no fever no chills , and the cough is nonproductive. He was seen in consultation by Dr. Lewis. He is seen again today 11/22/2016 in follow-up. He is awake and alert in no acute distress. He has been up ambulating in the [place] with assistance. He denies any worsening shortness of breath, cough or congestion. His chest x-ray reveals small right greater than left pleural effusions with adjacent atelectasis. His abdomen remains quite distended. He has been advanced to a regular diet. He has been passing flatus but still no bowel movement. Surgical services is on the case. He continues with pancytopenia with a hemoglobin is 7.8, platelet counts 22,000. INR 1.6. Fibrinogen less than 80. Hematology is following as well. He has received 10 units of cryoprecipitate. Objective - Vital Signs Vital signs: Vital Signs Temp 97.0 F L 11/22/16 07:00 Pulse 100 11/22/16 12:25 Resp 18 11/22/16 08:00 BP 126/62 11/22/16 07:00 Pulse Ox 94 L 11/22/16 07:00 Intake & Output 11/21/16 11/22/16 11/22/16 18:59 06:59 18:59 Intake Total 40 460 Output Total 6300 788 1900 Balance -9565 -391 -5020 Weight 85.275 kg 85.275 kg Intake: IV 210 Piperacillin-Tazobactam 3 50 .375 gm In Dextrose/Water 1 50ml.bag @ 12.5 mls/hr IVPB Q8HR [facility] Rx#: [id number] Sodium Chloride 0.9% 1, 160 000 ml @ 40 mls/hr IV . Q24H [facility] Rx#:[id number] Oral 250 Blood Product 40 Cryoprecipitate Unit 10 [id number] Cryoprecipitate Unit 10 [id number] Cryoprecipitate Unit 10 [id number] Cryoprecipitate Unit 10 [id number] Output: Urine 6300 800 1900 Uretheral (Espinal) 3800 800 800 Other: Voiding Method Indwelling Catheter Indwelling Catheter Indwelling Catheter # Voids 2 2 # Bowel Movements 1 1 - Exam GENERAL EXAM: Alert, comfortable in no apparent distress. HEAD: Normocephalic. EYES: Normal reaction of pupils, equal size. NOSE: Clear with pink turbinates. THROAT: No erythema or exudates. NECK: No masses, no JVD. CHEST: No chest wall deformity. LUNGS: Equal air entry with no crackles, wheeze, rhonchi or dullness. CVS: S1 and S2 normal with no audible murmurs, regular rhythm. ABDOMEN: No hepatosplenomegaly, normal bowel sounds, no guarding or rigidity. SPINE: No scoliosis or deformity SKIN: No rashes CENTRAL NERVOUS SYSTEM: No focal deficits, tone is normal in all 4 extremities. Extremities: There is no significant peripheral edema. No clubbing, no cyanosis. Peripheral pulses are intact. - Labs CBC & Chem 7: 11/22/16 08:00 11/22/16 08:00 Labs: Abnormal Lab Results - Last 24 Hours (Table) 11/21/16 11/21/16 11/22/16 Range/Units 17:29 20:44 07:21 RBC (4.30-5.90) m/uL Hgb (13.0-17.5) gm/dL Hct (39.0-53.0) % RDW (11.5-15.5) % Plt Count (150-450) k/uL PT (9.0-12.0) sec Fibrinogen (200-500) mg/dL Chloride (98-107) mmol/L Carbon Dioxide (22-30) mmol/L BUN (9-20) mg/dL Creatinine (0.66-1.25) mg/dL Glucose (74-99) mg/dL POC Glucose (mg/dL) 287 H 286 H 190 H (75-99) mg/dL Plasma Lactic Acid Harsha (0.7-2.0) mmol/L 11/22/16 11/22/16 11/22/16 Range/Units 08:00 08:00 08:00 RBC 2.47 L (4.30-5.90) m/uL Hgb 7.8 L (13.0-17.5) gm/dL Hct 23.8 L (39.0-53.0) % RDW 16.0 H (11.5-15.5) % Plt Count 22 L* (150-450) k/uL PT 15.2 H (9.0-12.0) sec Fibrinogen <80 L* (200-500) mg/dL Chloride 109 H (98-107) mmol/L Carbon Dioxide 18 L (22-30) mmol/L BUN 43 H (9-20) mg/dL Creatinine 1.76 H (0.66-1.25) mg/dL Glucose 180 H (74-99) mg/dL POC Glucose (mg/dL) (75-99) mg/dL Plasma Lactic Acid Harsha (0.7-2.0) mmol/L 11/22/16 11/22/16 Range/Units 08:39 12:28 RBC (4.30-5.90) m/uL Hgb (13.0-17.5) gm/dL Hct (39.0-53.0) % RDW (11.5-15.5) % Plt Count (150-450) k/uL PT (9.0-12.0) sec Fibrinogen (200-500) mg/dL Chloride (98-107) mmol/L Carbon Dioxide (22-30) mmol/L BUN (9-20) mg/dL Creatinine (0.66-1.25) mg/dL Glucose (74-99) mg/dL POC Glucose (mg/dL) 313 H (75-99) mg/dL Plasma Lactic Acid Harsha 2.1 H (0.7-2.0) mmol/L Microbiology - Last 24 Hours (Table) 11/22/16 08:02 Gram Stain - Preliminary Sputum Sputum Culture - Preliminary 11/19/16 13:02 Blood Culture - Preliminary Blood No Growth after 48 hours 11/19/16 12:55 Blood Culture - Preliminary Blood No Growth after 48 hours Assessment and Plan Plan: Pression: #1 Initial presentation with abdominal pain and suspected small bowel obstruction as well as acute ileitis. The patient responded to IV antibiotics and IV hydration. Most likely acute inflammatory bowel disease. Workup for IBD is pending. #2 Small right-sided greater than left pleural effusion most likely secondary to aggressive hydration and possibly a right lower lobe atelectasis. The effusion is too small to consider for thoracentesis. #3 Pancytopenia with low fibrinogen of unclear etiology. #4 Acute on chronic kidney disease, stage III. #5 Diabetes mellitus, type II. #6 Hypertension. #7 Hyperlipidemia. #8 Macular degeneration. #9 History of bowel resection. Plan: The patient was seen and evaluated by Dr. Lewis. His chest x-ray was reviewed. We'll continue with his bronchodilators, antibiotics, IV Solu- Medrol. He is again encouraged regarding increased use the incentive spirometer and cough and deep breathing exercises. The patient is in no acute pulmonary distress and is maintaining good O2 saturations on room air. The ultrasound from 11/19/2016 did reveal a 10.9 cm pleural effusion however based on his pancytopenia and low fibrinogen counts we'll hold off on thoracentesis for now. We will increase his activity as tolerated. We'll continue to follow make further recommendations based on his clinical status.
--- NOTE | 2016-11-22 14:46 | P.PN ---
Subjective Patient is evaluated at bedside. Patient is feeling well. Denies chills, nausea, vomiting, or abdominal pain. Patient is tolerating diet. Comparison is passing flatus with no bowel movement. WBC 9.7. Hemoglobin decreased to 7.8. Platelet count 22 from 28 yesterday. INR 1.6. Fibrinogen less than 80. Lactic acid decreased to 2.1. Objective - Vital Signs Vital signs: Vital Signs Temp 97.0 F L 11/22/16 07:00 Pulse 100 11/22/16 12:25 Resp 18 11/22/16 08:00 BP 126/62 11/22/16 07:00 Pulse Ox 94 L 11/22/16 07:00 Intake & Output 11/21/16 11/22/16 11/22/16 18:59 06:59 18:59 Intake Total 40 460 Output Total 6300 800 1900 Balance -6260 -340 -1900 Weight 85.275 kg 85.275 kg Intake: IV 210 Piperacillin-Tazobactam 3 50 .375 gm In Dextrose/Water 1 50ml.bag @ 12.5 mls/hr IVPB Q8HR [facility] Rx#: [id number] Sodium Chloride 0.9% 1, 160 000 ml @ 40 mls/hr IV . Q24H [facility] Rx#:[id number] Oral 250 Blood Product 40 Cryoprecipitate Unit 10 [id number] Cryoprecipitate Unit 10 [id number] Cryoprecipitate Unit 10 [id number] Cryoprecipitate Unit 10 [id number] Output: Urine 6300 800 1900 Uretheral (Espinal) 3800 800 800 Other: Voiding Method Indwelling Catheter Indwelling Catheter Indwelling Catheter # Voids 2 2 # Bowel Movements 1 1 - Gastrointestinal General gastrointestinal: Present: distended, normal bowel sounds, soft. Absent : tenderness - Labs CBC & Chem 7: 11/22/16 08:00 11/22/16 08:00 Labs: Abnormal Lab Results - Last 24 Hours (Table) 11/21/16 11/21/16 11/22/16 Range/Units 17:29 20:44 07:21 RBC (4.30-5.90) m/uL Hgb (13.0-17.5) gm/dL Hct (39.0-53.0) % RDW (11.5-15.5) % Plt Count (150-450) k/uL PT (9.0-12.0) sec Fibrinogen (200-500) mg/dL Chloride (98-107) mmol/L Carbon Dioxide (22-30) mmol/L BUN (9-20) mg/dL Creatinine (0.66-1.25) mg/dL Glucose (74-99) mg/dL POC Glucose (mg/dL) 287 H 286 H 190 H (75-99) mg/dL Plasma Lactic Acid Harsha (0.7-2.0) mmol/L 11/22/16 11/22/16 11/22/16 Range/Units 08:00 08:00 08:00 RBC 2.47 L (4.30-5.90) m/uL Hgb 7.8 L (13.0-17.5) gm/dL Hct 23.8 L (39.0-53.0) % RDW 16.0 H (11.5-15.5) % Plt Count 22 L* (150-450) k/uL PT 15.2 H (9.0-12.0) sec Fibrinogen <80 L* (200-500) mg/dL Chloride 109 H (98-107) mmol/L Carbon Dioxide 18 L (22-30) mmol/L BUN 43 H (9-20) mg/dL Creatinine 1.76 H (0.66-1.25) mg/dL Glucose 180 H (74-99) mg/dL POC Glucose (mg/dL) (75-99) mg/dL Plasma Lactic Acid Harsha (0.7-2.0) mmol/L 11/22/16 11/22/16 Range/Units 08:39 12:28 RBC (4.30-5.90) m/uL Hgb (13.0-17.5) gm/dL Hct (39.0-53.0) % RDW (11.5-15.5) % Plt Count (150-450) k/uL PT (9.0-12.0) sec Fibrinogen (200-500) mg/dL Chloride (98-107) mmol/L Carbon Dioxide (22-30) mmol/L BUN (9-20) mg/dL Creatinine (0.66-1.25) mg/dL Glucose (74-99) mg/dL POC Glucose (mg/dL) 313 H (75-99) mg/dL Plasma Lactic Acid Harsha 2.1 H (0.7-2.0) mmol/L Microbiology - Last 24 Hours (Table) 11/22/16 08:02 Gram Stain - Preliminary Sputum Sputum Culture - Preliminary 11/19/16 13:02 Blood Culture - Preliminary Blood No Growth after 48 hours 11/19/16 12:55 Blood Culture - Preliminary Blood No Growth after 48 hours Assessment and Plan Plan: Impression: Enteritis. Plan: Continue antibiotics and steroids. Continue low fiber diet. Continue medical management. The above impression and plan have been discussed and directed by Dr. Urias. Ponce LE acting as scribe for Dr. Urias.
[2016-11-22] MEDS: FILGRASTIM-SNDZ 480 MCG/0.8 ML SYRINGE SQ SCH (16:18)
--- NOTE | 2016-11-22 16:36 | P.PN ---
Subjective Principal diagnosis: Enteritis Patient is an 86-year-old white male admitted with complaints of abdominal pain with evidence of partial small bowel obstruction and enteritis. Patient also with evidence of patchy pneumonia or atelectasis in the posterior lung base per x-ray on admission. Admission labs with evidence of pancytopenia. GI service, surgical service, and hematology service are following patient. Patient is evaluated at bedside. Patient reports productive cough with greenish sputum. Denies chills, nausea, vomiting, shortness of breath, chest pain, or abdominal pain. Patient reports flatus but no bowel movements. Urine output adequate. Afebrile. Hemodynamically stable. Patient has been advanced to a regular diet. Hemoglobin decreased to 7.8, platelet count 22,000, INR 1.6 , fibrinogen less than 80. Surgery, hematology, and pulmonology following patient. Objective - Vital Signs Vital signs: Vital Signs Temp 97.6 F 11/22/16 15:00 Pulse 97 11/22/16 15:48 Resp 18 11/22/16 15:48 BP 128/59 11/22/16 15:00 Pulse Ox 98 11/22/16 15:00 Intake & Output 11/21/16 11/22/16 11/22/16 18:59 06:59 18:59 Intake Total 40 460 200 Output Total 6300 800 3000 Balance -3927 -340 -6430 Weight 85.275 kg 85.275 kg Intake: IV 210 Piperacillin-Tazobactam 3 50 .375 gm In Dextrose/Water 1 50ml.bag @ 12.5 mls/hr IVPB Q8HR [facility] Rx#: [id number] Sodium Chloride 0.9% 1, 160 000 ml @ 40 mls/hr IV . Q24H [facility] Rx#:[id number] Oral 250 200 Blood Product 40 Cryoprecipitate Unit 10 [id number] Cryoprecipitate Unit 10 [id number] Cryoprecipitate Unit 10 [id number] Cryoprecipitate Unit 10 [id number] Output: Urine 6300 800 3000 Uretheral (Espinal) 3800 800 800 Other: Voiding Method Indwelling Catheter Indwelling Catheter Indwelling Catheter # Voids 2 2 # Bowel Movements 1 1 - Exam GENERAL: Pt awake and alert, in no acute distress. HEAD: Atraumatic, normocephalic. EYES: Pupils equal and round. Sclera anicteric, conjunctiva are normal. ENT: Moist mucous membranes. NECK:Normal range of motion, supple without lymphadenopathy or JVD. LUNGS: Breath sounds diminished with crackles to right posterior lobe. No wheezing at this time. HEART: Heart S1, S2, no S3 or S4. Regular rate and rhythm. No murmurs, rubs or gallops. ABDOMEN: Soft, nontender, distended, active bowel sounds, No guarding, no rebound. EXTREMITIES: 2+ peripheral pulses. No edema. No calf tenderness. NEUROLOGICAL: Pt oriented x 3. No focal deficits. PSYCH: Normal mood, normal affect. SKIN: Warm, dry, intact. Normal turgor. - Labs CBC & Chem 7: 11/22/16 08:00 11/22/16 08:00 Labs: Abnormal Lab Results - Last 24 Hours (Table) 11/21/16 11/21/16 11/22/16 Range/Units 17:29 20:44 07:21 RBC (4.30-5.90) m/uL Hgb (13.0-17.5) gm/dL Hct (39.0-53.0) % RDW (11.5-15.5) % Plt Count (150-450) k/uL PT (9.0-12.0) sec Fibrinogen (200-500) mg/dL Chloride (98-107) mmol/L Carbon Dioxide (22-30) mmol/L BUN (9-20) mg/dL Creatinine (0.66-1.25) mg/dL Glucose (74-99) mg/dL POC Glucose (mg/dL) 287 H 286 H 190 H (75-99) mg/dL Plasma Lactic Acid Harsha (0.7-2.0) mmol/L 11/22/16 11/22/16 11/22/16 Range/Units 08:00 08:00 08:00 RBC 2.47 L (4.30-5.90) m/uL Hgb 7.8 L (13.0-17.5) gm/dL Hct 23.8 L (39.0-53.0) % RDW 16.0 H (11.5-15.5) % Plt Count 22 L* (150-450) k/uL PT 15.2 H (9.0-12.0) sec Fibrinogen <80 L* (200-500) mg/dL Chloride 109 H (98-107) mmol/L Carbon Dioxide 18 L (22-30) mmol/L BUN 43 H (9-20) mg/dL Creatinine 1.76 H (0.66-1.25) mg/dL Glucose 180 H (74-99) mg/dL POC Glucose (mg/dL) (75-99) mg/dL Plasma Lactic Acid Harsha (0.7-2.0) mmol/L 11/22/16 11/22/16 Range/Units 08:39 12:28 RBC (4.30-5.90) m/uL Hgb (13.0-17.5) gm/dL Hct (39.0-53.0) % RDW (11.5-15.5) % Plt Count (150-450) k/uL PT (9.0-12.0) sec Fibrinogen (200-500) mg/dL Chloride (98-107) mmol/L Carbon Dioxide (22-30) mmol/L BUN (9-20) mg/dL Creatinine (0.66-1.25) mg/dL Glucose (74-99) mg/dL POC Glucose (mg/dL) 313 H (75-99) mg/dL Plasma Lactic Acid Harsha 2.1 H (0.7-2.0) mmol/L Microbiology - Last 24 Hours (Table) 11/19/16 13:02 Blood Culture - Preliminary Blood No Growth after 72 hours 11/19/16 12:55 Blood Culture - Preliminary Blood No Growth after 72 hours 11/22/16 08:02 Gram Stain - Preliminary Sputum Sputum Culture - Preliminary Assessment and Plan Plan: Impression and plan: 1. Abdominal pain with distention suspect secondary to possible small bowel obstruction and enteritis, present on admission. Surgical and GI consult in place, recommendations noted. At this time continue conservative management. Continue IV antibiotics. Continue IV hydration. Continue IV Solu-Medrol for suspicion of inflammatory bowel disease. 2. Right pleural effusion. Pulmonary service is following patient, no plans for thoracentesis at this point. 3. Chest x-ray with evidence of possible right basal pneumonia, possible nosocomial. Pulmonary consult requested along with ID consult. Continue patient on updraft treatments, change antibiotics to IV Levaquin and IV Zosyn for broad-spectrum coverage. Sputum culture pending. Continue nebulized updraft treatments. Continue incentive spirometry for patient to use 10 times an hour while awake. 3. 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 Platelet count decreased to 22. Hematology consult in place, recommendations noted. Patient has been transfused with cryo. 4. Anemia, normocytic. Hemoglobin decreased to 7.8. 6. Increased creatinine with possible acute on chronic kidney disease. Creatinine stable at 1.74. We'll hold lisinopril and metformin. Continue IV hydration. 7. Chronic kidney disease, stage III. 8. Increased random blood sugar, present on admission. 9. Low fibrinogen of unclear etiology. Hematology following. 10. Diabetes mellitus type 2. Hemoglobin A1c 7.3. Blood sugars elevated. Continue Lantus protocol. 11. Hypertension. Continue Norvasc. 12. Hyperlipidemia. Continue Lipitor. 13. Macular degeneration. 14. History of bowel resection. 15. History of cholecystectomy. 16. History of orthopedic surgery. Continue to monitor patient. Continue current medications. Continue supportive treatment and pain management. Continue GI and DVT prophylaxis. Continue to follow with consultants. Repeat CBC and BMP in a.m. The above impression and plan have been discussed and directed by Dr. Burnette. Ponce LE acting as scribe for Dr. Burnette.
[2016-11-22 17:32] LABS: Glucose,Whole Blood 224 mg/dL (75-99)
[2016-11-22] MEDS: ATORVASTATIN 10 MG TAB PO SCH (21:09)
[2016-11-22] MEDS: INSULIN GLARGINE 100 UNIT/ML 10 ML VIAL SQ SCH (21:10)
[2016-11-22 21:40] LABS: Glucose,Whole Blood 276 mg/dL (75-99)
--- NOTE | 2016-11-22 23:21 | PN ---
DATE OF SERVICE: 11/22/2016 REASON FOR FOLLOWUP: Possible pneumonia and ileitis. INTERVAL HISTORY: The patient is afebrile; has been breathing comfortably. He did have a cough productive of some yellowish sputum this morning. He was able to provide sputum. Denies chest pain. No abdominal pain. No nausea, vomiting or any diarrhea. On examination, blood pressure is 128/59 with a pulse of 90, temperature 97.6. He is 98% on room air. General description is an elderly male lying in bed in no distress. RESPIRATORY SYSTEM: Unlabored breathing with decreased breath sounds at the bases. No wheeze. HEART: S1, S2. Regular rate and rhythm. ABDOMEN: Soft. No tenderness. LABS: Hemoglobin is 7.8, white count 9.7. BUN of 43, creatinine 1.76. Sputum culture currently pending. Blood culture so far negative. DIAGNOSTIC IMPRESSION AND PLAN: Patient with right lower lobe infiltrate and a question of pneumonia. Patient did have a cough productive of sputum with a question of possible Gram-negative. We are waiting for the sputum culture to finalize. Continue the patient on Zosyn and Levaquin at this point. Continue supportive care.
[2016-11-23] MEDS: methylPREDNISolone SOD SUCCI 125 MG/2 ML VIAL IV SCH ×4 (06:23→23:57)
[2016-11-23 07:22] LABS: Glucose,Whole Blood 194 mg/dL (75-99)
[2016-11-23] MEDS: IPRATROPIUM-ALBUTEROL 3 ML NEB INHALATION SCH ×4 (07:33→19:29)
[2016-11-23] MEDS: LEVOFLOXACIN 750MG-D5W PMX 750 MG in DEXTROSE/WATER 1 150ML.BAG IVPB SCH (07:43)
[2016-11-23] MEDS: metroNIDAZOLE 500 MG TAB PO SCH ×2 (07:43→15:56)
[2016-11-23] MEDS: amLODIPine 5 MG TAB PO SCH (07:44)
[2016-11-23] MEDS: PANTOPRAZOLE 40 MG TABLET PO SCH (07:44)
[2016-11-23] MEDS: INSULIN LISPRO (humaLOG) 300 UNIT/3 ML VIAL SQ SCH ×7 (07:44→21:40)
[2016-11-23] MEDS: VIT A,C & E-LUTEIN-MINERALS 1 EACH TAB PO SCH (07:45)
[2016-11-23 08:03] LABS: Calcium 10.1 mg/dL (8.4-10.2)
[2016-11-23 08:08] LABS: CH 30.2; CHCM 31.5; HCT 23.9 % (39.0-53.0); HDW 2.63; HGB 7.7 gm/dL (13.0-17.5); Hypochromasia Slight; Large Platelets Flag Marked; MCH 31.1 pg (25.0-35.0); MCHC 32.2 g/dL (31.0-37.0); MCV 96.8 fL (80.0-100.0); Mean Platelet Volume 12.2; RBC 2.47 m/uL (4.30-5.90); RDW 15.8 % (11.5-15.5); WBC 8.4 k/uL (3.8-10.6)
[2016-11-23] MEDS: PIPERACILLIN-TAZOBACTAM 3.375 GM in DEXTROSE/WATER 1 50ML.BAG IVPB SCH (09:31)
[2016-11-23 10:53] LABS: Add Differential Manual Differential
[2016-11-23 10:57] LABS: Band Neutrophils % 2.5 %; Myelocytes % 0.5 %; Nucleated Red Blood Cells 0 /100 WBC (0-0); Total Cells Counted 200
[2016-11-23 11:05] LABS: Glucose,Whole Blood 303 mg/dL (75-99)
[2016-11-23] MEDS: FILGRASTIM-SNDZ 480 MCG/0.8 ML SYRINGE SQ SCH (11:36)
[2016-11-23 12:47] VITALS: BMI 31.3
[2016-11-23] MEDS: SODIUM CHLORIDE 0.9% 1,000 ML IV SCH ×2 (15:05→17:13)
--- NOTE | 2016-11-23 15:38 | P.PN ---
Subjective Principal diagnosis: Enteritis Patient is an 86-year-old white male admitted with complaints of abdominal pain with evidence of partial small bowel obstruction and enteritis. Patient also with evidence of patchy pneumonia or atelectasis in the posterior lung base per x-ray on admission. Admission labs with evidence of pancytopenia. GI service, surgical service, and hematology service are following patient. Patient is evaluated at bedside. Patient states he gets easily short of breath with minimal activity. Patient reports increased weakness to lower extremities with ambulation. Patient reports productive cough with greenish sputum. Patient states that when he eats he feels the food doesn't want to go down and is unable to eat a lot. Denies chills, nausea, vomiting, palpitations, chest pain, or abdominal pain. Patient reports flatus with bowel movements this morning. Urine output adequate. Afebrile. Hemodynamically stable. Patient has been advanced to a regular diet. Hemoglobin decreased to 7.7, platelet count decreased to 19,000. Surgery, hematology, and pulmonology following patient. Objective - Vital Signs Vital signs: Vital Signs Temp 96.9 F L 11/23/16 14:23 Pulse 107 H 11/23/16 14:47 Resp 18 11/23/16 14:47 BP 141/64 11/23/16 14:23 Pulse Ox 96 11/23/16 14:23 Intake & Output 11/22/16 11/23/16 11/23/16 18:59 06:59 18:59 Intake Total 200 550 670 Output Total 3000 1400 400 Balance -2800 -850 270 Weight 85.275 kg 99.11 kg 99.11 kg Intake: IV 250 260 Piperacillin-Tazobactam 3 50 .375 gm In Dextrose/Water 1 50ml.bag @ 12.5 mls/hr IVPB Q8HR [facility] Rx#: [id number] Sodium Chloride 0.9% 1, 200 260 000 ml @ 40 mls/hr IV . Q24H [facility] Rx#:[id number] Intake, IV Titration 410 Amount Piperacillin-Tazobactam 3 50 .375 gm In Dextrose/Water 1 50ml.bag @ 12.5 mls/hr IVPB Q8HR [facility] Rx#: [id number] Sodium Chloride 0.9% 1, 260 000 ml @ 40 mls/hr IV . Q24H [facility] Rx#:[id number] cefTAZidime 2 gm In 100 Sodium Chloride 0.9% 100 ml @ 100 mls/hr IVPB Q12HR [facility] Rx#:[id number] Oral 200 300 Output: Urine 3000 1400 400 Uretheral (Espinal) 800 Other: Voiding Method Indwelling Catheter Indwelling Catheter Indwelling Catheter # Voids 2 2 # Bowel Movements 1 1 - Exam GENERAL: Pt awake and alert, in no acute distress. HEAD: Atraumatic, normocephalic. EYES: Pupils equal and round. Sclera anicteric, conjunctiva are normal. ENT: Moist mucous membranes. NECK:Normal range of motion, supple without lymphadenopathy or JVD. LUNGS: Breath sounds diminished with crackles to right posterior lobe. No wheezing. HEART: Heart S1, S2, no S3 or S4. Irregular rhythm. No murmurs, rubs or gallops. ABDOMEN: Soft, nontender, distended, active bowel sounds, No guarding, no rebound. EXTREMITIES: 2+ peripheral pulses. No edema. No calf tenderness. NEUROLOGICAL: Pt oriented x 3. No focal deficits. PSYCH: Normal mood, normal affect. SKIN: Warm, dry, intact. Normal turgor. - Labs CBC & Chem 7: 11/23/16 07:15 11/23/16 07:15 Labs: Abnormal Lab Results - Last 24 Hours (Table) 11/22/16 11/22/16 11/23/16 Range/Units 17:20 20:33 07:15 RBC 2.47 L (4.30-5.90) m/uL Hgb 7.7 L (13.0-17.5) gm/dL Hct 23.9 L (39.0-53.0) % RDW 15.8 H (11.5-15.5) % Plt Count 19 L* (150-450) k/uL Chloride (98-107) mmol/L Carbon Dioxide (22-30) mmol/L BUN (9-20) mg/dL Creatinine (0.66-1.25) mg/dL Glucose (74-99) mg/dL POC Glucose (mg/dL) 224 H 276 H (75-99) mg/dL 11/23/16 11/23/16 11/23/16 Range/Units 07:15 07:20 11:01 RBC (4.30-5.90) m/uL Hgb (13.0-17.5) gm/dL Hct (39.0-53.0) % RDW (11.5-15.5) % Plt Count (150-450) k/uL Chloride 110 H (98-107) mmol/L Carbon Dioxide 19 L (22-30) mmol/L BUN 48 H (9-20) mg/dL Creatinine 1.76 H (0.66-1.25) mg/dL Glucose 173 H (74-99) mg/dL POC Glucose (mg/dL) 194 H 303 H (75-99) mg/dL Microbiology - Last 24 Hours (Table) 11/19/16 13:02 Blood Culture - Preliminary Blood No Growth after 96 hours 11/19/16 12:55 Blood Culture - Preliminary Blood No Growth after 96 hours 11/22/16 08:02 Gram Stain - Preliminary Sputum Sputum Culture - Preliminary Assessment and Plan Plan: Impression and plan: 1. Abdominal pain with distention suspect secondary to possible small bowel obstruction and enteritis, present on admission. Surgical and GI consult in place, recommendations noted. At this time continue conservative management. Continue IV antibiotics. Continue IV hydration. Continue IV Solu-Medrol for suspicion of inflammatory bowel disease. 2. Right pleural effusion. Pulmonary service is following patient, no plans for thoracentesis at this point. 3. Chest x-ray with evidence of possible right basal pneumonia, possible nosocomial. Pulmonary consult requested along with ID consult. Continue patient on updraft treatments, change antibiotics to IV Levaquin and IV Zosyn for broad-spectrum coverage. Sputum culture pending. Continue nebulized updraft treatments. Continue incentive spirometry for patient to use 10 times an hour while awake. 3. 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 Platelet count decreased to 19,000. Hematology consult in place, recommendations noted. Patient has been transfused with 10 units of cryoprecipitate. 4. Anemia, normocytic. Hemoglobin decreased to 7.7. 6. Increased creatinine with possible acute on chronic kidney disease. Creatinine stable at 1.76. We'll hold lisinopril and metformin. Continue IV hydration. 7. Chronic kidney disease, stage III. 8. Increased random blood sugar, present on admission. 9. Low fibrinogen of unclear etiology. Hematology following. 10. Diabetes mellitus type 2. Hemoglobin A1c 7.3. Blood sugars elevated suspect secondary to IV steroids. Increase Lantus to 30 units subcu at bedtime per protocol, increase Humalog to 10 units subcu before meals 3 times a day, continue Humalog sliding scale. Continue Accu-Cheks before meals. 11. Hypertension. Continue Norvasc. 12. Hyperlipidemia. Continue Lipitor. 13. Macular degeneration. 14. History of bowel resection. 15. History of cholecystectomy. 16. History of orthopedic surgery. Continue to monitor patient. Continue current medications. Continue supportive treatment and pain management. Continue GI and DVT prophylaxis. Continue to follow with consultants. Repeat CBC and BMP in a.m. The above impression and plan have been discussed and directed by Dr. Burnette. Ponce LE acting as scribe for Dr. Burnette.
--- NOTE | 2016-11-23 16:36 | P.PN ---
Subjective Principal diagnosis: Enteritis Patient is an 86-year-old white male admitted with complaints of abdominal pain with evidence of partial small bowel obstruction and enteritis. Patient is evaluated at bedside. Patient states he gets easily short of breath with minimal activity. Patient reports increased weakness to lower extremities with ambulation. Patient reports productive cough with greenish sputum. Patient states that when he eats he feels the food doesn't want to go down and is unable to eat a lot. Denies chills, nausea, vomiting, palpitations, chest pain, or abdominal pain. Patient reports flatus with bowel movements this morning. Urine output adequate. Afebrile. Hemodynamically stable. Patient has been advanced to a regular diet. Hemoglobin decreased to 7.7, platelet count decreased to 19,000. Objective - Vital Signs Vital signs: Vital Signs Temp 96.9 F L 11/23/16 14:23 Pulse 82 11/23/16 15:45 Resp 18 11/23/16 14:47 BP 141/64 11/23/16 14:23 Pulse Ox 96 11/23/16 14:23 Intake & Output 11/22/16 11/23/16 11/23/16 18:59 06:59 18:59 Intake Total 200 550 670 Output Total 3000 1400 400 Balance -2800 -850 270 Weight 85.275 kg 99.11 kg 99.11 kg Intake: IV 250 260 Piperacillin-Tazobactam 3 50 .375 gm In Dextrose/Water 1 50ml.bag @ 12.5 mls/hr IVPB Q8HR [facility] Rx#: [id number] Sodium Chloride 0.9% 1, 200 260 000 ml @ 40 mls/hr IV . Q24H [facility] Rx#:[id number] Intake, IV Titration 410 Amount Piperacillin-Tazobactam 3 50 .375 gm In Dextrose/Water 1 50ml.bag @ 12.5 mls/hr IVPB Q8HR [facility] Rx#: [id number] Sodium Chloride 0.9% 1, 260 000 ml @ 40 mls/hr IV . Q24H [facility] Rx#:[id number] cefTAZidime 2 gm In 100 Sodium Chloride 0.9% 100 ml @ 100 mls/hr IVPB Q12HR [facility] Rx#:[id number] Oral 200 300 Output: Urine 3000 1400 400 Uretheral (Espinal) 800 Other: Voiding Method Indwelling Catheter Indwelling Catheter Indwelling Catheter # Voids 2 2 # Bowel Movements 1 1 - Exam GENERAL: Pt awake and alert, in no acute distress. HEART: Heart S1, S2, no S3 or S4. Irregular rhythm. No murmurs, rubs or gallops. ABDOMEN: Soft, nontender, distended, active bowel sounds, No guarding, no rebound. - Labs CBC & Chem 7: 11/23/16 07:15 11/23/16 07:15 Labs: Abnormal Lab Results - Last 24 Hours (Table) 11/22/16 11/22/16 11/23/16 Range/Units 17:20 20:33 07:15 RBC 2.47 L (4.30-5.90) m/uL Hgb 7.7 L (13.0-17.5) gm/dL Hct 23.9 L (39.0-53.0) % RDW 15.8 H (11.5-15.5) % Plt Count 19 L* (150-450) k/uL Chloride (98-107) mmol/L Carbon Dioxide (22-30) mmol/L BUN (9-20) mg/dL Creatinine (0.66-1.25) mg/dL Glucose (74-99) mg/dL POC Glucose (mg/dL) 224 H 276 H (75-99) mg/dL 11/23/16 11/23/16 11/23/16 Range/Units 07:15 07:20 11:01 RBC (4.30-5.90) m/uL Hgb (13.0-17.5) gm/dL Hct (39.0-53.0) % RDW (11.5-15.5) % Plt Count (150-450) k/uL Chloride 110 H (98-107) mmol/L Carbon Dioxide 19 L (22-30) mmol/L BUN 48 H (9-20) mg/dL Creatinine 1.76 H (0.66-1.25) mg/dL Glucose 173 H (74-99) mg/dL POC Glucose (mg/dL) 194 H 303 H (75-99) mg/dL Microbiology - Last 24 Hours (Table) 11/19/16 13:02 Blood Culture - Preliminary Blood No Growth after 96 hours 11/19/16 12:55 Blood Culture - Preliminary Blood No Growth after 96 hours Assessment and Plan Plan: Impression: Enteritis. Plan: Continue antibiotics and steroids. Continue low fiber diet. Continue medical management. The above impression and plan have been discussed and directed by Dr. Urias. Ponce LE acting as scribe for Dr. Urias.
[2016-11-23 17:01] LABS: Glucose,Whole Blood 280 mg/dL (75-99)
--- NOTE | 2016-11-23 17:13 | P.PN ---
Subjective Generalized weakness persists. However the patient states that his appetite is improved. He denies any significant abdominal pain at rest. Objective - Vital Signs Vital signs: Vital Signs Temp 96.9 F L 11/23/16 14:23 Pulse 82 11/23/16 15:45 Resp 18 11/23/16 14:47 BP 141/64 11/23/16 14:23 Pulse Ox 96 11/23/16 14:23 Intake & Output 11/22/16 11/23/16 11/23/16 18:59 06:59 18:59 Intake Total 200 550 670 Output Total 3000 1400 400 Balance -2800 -850 270 Weight 85.275 kg 99.11 kg 99.11 kg Intake: IV 250 260 Piperacillin-Tazobactam 3 50 .375 gm In Dextrose/Water 1 50ml.bag @ 12.5 mls/hr IVPB Q8HR [facility] Rx#: [id number] Sodium Chloride 0.9% 1, 200 260 000 ml @ 40 mls/hr IV . Q24H [facility] Rx#:[id number] Intake, IV Titration 410 Amount Piperacillin-Tazobactam 3 50 .375 gm In Dextrose/Water 1 50ml.bag @ 12.5 mls/hr IVPB Q8HR [facility] Rx#: [id number] Sodium Chloride 0.9% 1, 260 000 ml @ 40 mls/hr IV . Q24H [facility] Rx#:[id number] cefTAZidime 2 gm In 100 Sodium Chloride 0.9% 100 ml @ 100 mls/hr IVPB Q12HR [facility] Rx#:[id number] Oral 200 300 Output: Urine 3000 1400 400 Uretheral (Espinal) 800 Other: Voiding Method Indwelling Catheter Indwelling Catheter Indwelling Catheter # Voids 2 2 # Bowel Movements 1 1 - Constitutional General appearance: Present: no acute distress - EENT Eyes: Present: EOMI, PERRLA ENT: Present: hearing grossly normal, normal oropharynx - Respiratory Respiratory: bilateral: diminished - Cardiovascular Rhythm: regular Heart sounds: normal: S1, S2 - Gastrointestinal General gastrointestinal: Present: distended, normal bowel sounds, soft - Integumentary Integumentary: Present: normal - Neurologic Neurologic: Present: CNII-XII intact - Musculoskeletal Musculoskeletal: Present: generalized weakness - Psychiatric Psychiatric: Present: A&O x's 3 - Labs CBC & Chem 7: 11/23/16 07:15 11/23/16 07:15 Labs: Abnormal Lab Results - Last 24 Hours (Table) 11/22/16 11/22/16 11/23/16 Range/Units 17:20 20:33 07:15 RBC 2.47 L (4.30-5.90) m/uL Hgb 7.7 L (13.0-17.5) gm/dL Hct 23.9 L (39.0-53.0) % RDW 15.8 H (11.5-15.5) % Plt Count 19 L* (150-450) k/uL Chloride (98-107) mmol/L Carbon Dioxide (22-30) mmol/L BUN (9-20) mg/dL Creatinine (0.66-1.25) mg/dL Glucose (74-99) mg/dL POC Glucose (mg/dL) 224 H 276 H (75-99) mg/dL 11/23/16 11/23/16 11/23/16 Range/Units 07:15 07:20 11:01 RBC (4.30-5.90) m/uL Hgb (13.0-17.5) gm/dL Hct (39.0-53.0) % RDW (11.5-15.5) % Plt Count (150-450) k/uL Chloride 110 H (98-107) mmol/L Carbon Dioxide 19 L (22-30) mmol/L BUN 48 H (9-20) mg/dL Creatinine 1.76 H (0.66-1.25) mg/dL Glucose 173 H (74-99) mg/dL POC Glucose (mg/dL) 194 H 303 H (75-99) mg/dL 11/23/16 Range/Units 17:00 RBC (4.30-5.90) m/uL Hgb (13.0-17.5) gm/dL Hct (39.0-53.0) % RDW (11.5-15.5) % Plt Count (150-450) k/uL Chloride (98-107) mmol/L Carbon Dioxide (22-30) mmol/L BUN (9-20) mg/dL Creatinine (0.66-1.25) mg/dL Glucose (74-99) mg/dL POC Glucose (mg/dL) 280 H (75-99) mg/dL Microbiology - Last 24 Hours (Table) 11/19/16 13:02 Blood Culture - Preliminary Blood No Growth after 96 hours 11/19/16 12:55 Blood Culture - Preliminary Blood No Growth after 96 hours Assessment and Plan (1) Pancytopenia Narrative/Plan: The patient that obesity is improved back into the 8000 range with filgrastim. Hemoglobin has slowly declined into the high 7 range. There is no evidence of any obvious bleeding. Platelets after being somewhat stable than 30 ,000 range of dropped to 19,000 The involvement of all 3 cell lines, as well as gradual decline, in the presence of a negative lab work up for pancytopenia, is still more consistent with an underlying MDS with additional marrow suppression due to sepsis as well as antibiotic use. Her depending on the individual, is not uncommon to see marrow recovery lag behind resolution of the acute condition by 1-2 weeks or more. At this time therefore I would recommend continued monitoring as well as supplementation as needed. Filgrastim will be discontinued. If blood counts do not show stabilization by early next week, bone marrow aspiration biopsy will be planned Status: Acute (2) Coagulopathy Narrative/Plan: The cause of this remains unclear at this time. The patient's PTT is normal, while PT/INR are persistently elevated. However the degree of elevation is moderate and the levels are very stable in that range. As noted, the patient did not really have any response to IV vitamin K. While sepsis of abdominal source, decreased oral intake as well as antibiotic use can certainly account for elevated PT/INR, I would normally expect a response to IV vitamin K in that case. I will early, fibrinogen production can be decreased due to liver disease /liver function suppression, but the patient's liver enzymes are overall normal. DIC is also unlikely, as that condition, if severe enough to cause fibrinogen levels to be less than 100 persistently, would also cause elevation of PTT (which is persistently normal), as well as more severe elevation of PT and INR. A mixing study has been ordered, which is pending. This would help to clarify if this is a production problem (which which would indicate the cause to be his acute condition, and therefore expected to resolve with time), versus an inhibitor. Status: Acute
--- NOTE | 2016-11-23 18:28 | PN ---
DATE OF SERVICE: 11/23/2016 REASON FOR FOLLOWUP: Possible pneumonia. INTERVAL HISTORY: The patient is afebrile, has been breathing comfortably. He did have some cough that has decreased in intensity. Denies having chest pain. No abdominal pain or any diarrhea. The patient was noticed to have a drop in his platelet count two times. On examination, blood pressure is 141/64 with a pulse of 82, temperature 96.9. He is 96% on 2 L nasal cannula. General description is an elderly male up in the bed in no distress. RESPIRATORY SYSTEM: Unlabored breathing. Some decreased breath sounds at the bases. HEART: S1, S2. Regular rate and rhythm. ABDOMEN: Soft, slightly distended. LABS: Hemoglobin is 7.7, white count 8.4 with a BUN of 48, creatinine 1.76. Sputum cultures are currently pending, blood cultures so far negative. DIAGNOSTIC IMPRESSION AND PLAN: Patient with possible left lower lobe pneumonia. We are waiting for the sputum culture to finalize. drop in his platelets. Antibiotic adjusted to Fortaz and Levaquin. That will be continued, adjusting it further on the basis of culture report. Continue supportive care. MTDD
[2016-11-23 20:23] LABS: Glucose,Whole Blood 195 mg/dL (75-99)
[2016-11-23] MEDS ORDERED: INSULIN GLARGINE 100 UNIT/ML 10 ML VIAL SQ SCH (21:00)
[2016-11-24] MEDS: metroNIDAZOLE 500 MG TAB PO SCH ×3 (00:01→16:15)
[2016-11-24 07:07] LABS: Glucose,Whole Blood 110 mg/dL (75-99)
[2016-11-24] MEDS: IPRATROPIUM-ALBUTEROL 3 ML NEB INHALATION SCH ×4 (09:13→19:53)
[2016-11-24] MEDS: methylPREDNISolone SOD SUCCI 125 MG/2 ML VIAL IV SCH ×3 (09:24→18:41)
[2016-11-24] MEDS: INSULIN LISPRO (humaLOG) 300 UNIT/3 ML VIAL SQ SCH ×6 (09:28→18:40)
[2016-11-24] MEDS: PANTOPRAZOLE 40 MG TABLET PO SCH (09:29)
[2016-11-24] MEDS: amLODIPine 5 MG TAB PO SCH (09:30)
[2016-11-24] MEDS: VIT A,C & E-LUTEIN-MINERALS 1 EACH TAB PO SCH (09:30)
--- NOTE | 2016-11-24 10:53 | P.PN ---
Subjective Principal diagnosis: Regional enteritis, pancytopenia The patient is seen on rounds. He feels significantly better than admission. He ate well yesterday. He's passing some flatus. He got nauseated this morning with a transfusion so he didn't eat breakfast. Not ambulating well. PT and OT have been consult inability said he hasn't been ambulating because the typically come at mealtime. Objective - Vital Signs Vital signs: Vital Signs Temp 98.6 F 11/24/16 09:21 Pulse 96 11/24/16 09:21 Resp 16 11/24/16 09:21 BP 132/64 11/24/16 09:21 Pulse Ox 95 11/24/16 09:21 Intake & Output 11/23/16 11/24/16 11/24/16 18:59 06:59 18:59 Intake Total 670 480 240 Output Total 2000 700 Balance -1330 -220 240 Weight 99.11 kg 99 kg Intake: IV 260 0 Piperacillin-Tazobactam 3 0 .375 gm In Dextrose/Water 1 50ml.bag @ 12.5 mls/hr IVPB Q8HR [facility] Rx#: [id number] Sodium Chloride 0.9% 1, 260 000 ml @ 40 mls/hr IV . Q24H [facility] Rx#:[id number] Intake, IV Titration 410 Amount Piperacillin-Tazobactam 3 50 .375 gm In Dextrose/Water 1 50ml.bag @ 12.5 mls/hr IVPB Q8HR [facility] Rx#: [id number] Sodium Chloride 0.9% 1, 260 000 ml @ 40 mls/hr IV . Q24H [facility] Rx#:[id number] cefTAZidime 2 gm In 100 Sodium Chloride 0.9% 100 ml @ 100 mls/hr IVPB Q12HR [facility] Rx#:[id number] Oral 480 240 Blood Product 0 0 Platelet Irr Pheresis 3 0 0 Acda Unit [id number] Output: Urine 2000 700 Uretheral (Espinal) 800 700 Other: Voiding Method Indwelling Catheter Indwelling Catheter # Voids 2 - Constitutional General appearance: Present: cooperative, no acute distress - Gastrointestinal General gastrointestinal: Present: distended, normal bowel sounds, tenderness ( Very minimal to deep palpation) - Labs CBC & Chem 7: 11/23/16 07:15 11/23/16 07:15 Labs: Abnormal Lab Results - Last 24 Hours (Table) 11/23/16 11/23/16 11/23/16 Range/Units 07:15 11:01 17:00 RBC 2.47 L (4.30-5.90) m/uL Hgb 7.7 L (13.0-17.5) gm/dL Hct 23.9 L (39.0-53.0) % RDW 15.8 H (11.5-15.5) % Plt Count 19 L* (150-450) k/uL POC Glucose (mg/dL) 303 H 280 H (75-99) mg/dL 11/23/16 11/24/16 Range/Units 20:20 07:05 RBC (4.30-5.90) m/uL Hgb (13.0-17.5) gm/dL Hct (39.0-53.0) % RDW (11.5-15.5) % Plt Count (150-450) k/uL POC Glucose (mg/dL) 195 H 110 H (75-99) mg/dL Microbiology - Last 24 Hours (Table) 11/19/16 13:02 Blood Culture - Preliminary Blood No Growth after 96 hours 11/19/16 12:55 Blood Culture - Preliminary Blood No Growth after 96 hours Assessment and Plan (1) Weakness Status: Acute (2) Enteritis Status: Acute (3) Pancytopenia Status: Acute Plan: Patient is progressing surgically. Continue diet as tolerated. Encourage ambulation. Currently nonsurgical.
[2016-11-24 10:59] LABS: Anisocytosis Slight; Basophils # (A) 0.1 k/uL (0-0.2); Basophils % (A) 1 %; CH 30.2; CHCM 30.3; Eosinophils % (A) 0 %; HCT 25.1 % (39.0-53.0); HDW 2.65; HGB 7.6 gm/dL (13.0-17.5); Hypochromasia Moderate; Luc # (Auto) 0.22; Luc % (Auto) 3; Lymphocytes # (A) 2.9 k/uL (1.0-4.8); Lymphocytes % (A) 38 %; MCH 30.3 pg (25.0-35.0); MCHC 30.1 g/dL (31.0-37.0); MCV 100.7 fL (80.0-100.0); Macrocytosis Slight; Mean Platelet Volume 11.2; Monocytes # (A) 0.3 k/uL (0-1.0); Monocytes % (A) 4 %; Neutrophils # (A) 4.2 k/uL (1.3-7.7); Neutrophils % (A) 54 %; RDW 16.5 % (11.5-15.5); WBC 7.6 k/uL (3.8-10.6); WBC (Perox) 7.37
[2016-11-24 11:18] LABS: INR 1.4 (<1.1); Prothrombin Time 13.8 sec (9.0-12.0)
[2016-11-24 11:29] LABS: Partial Thromboplastin Time 20.4 sec (22.0-30.0)
[2016-11-24 12:21] LABS: Glucose,Whole Blood 158 mg/dL (75-99)
[2016-11-24] MEDS: FILGRASTIM-SNDZ 480 MCG/0.8 ML SYRINGE SQ SCH (12:36)
--- NOTE | 2016-11-24 13:19 | PN ---
The patient is an 86-year-old admitted secondary to enteritis and patient is on antibiotics as per recommendations from Surgery I believe and patient also has pancytopenia which is believed to secondary to myelodysplastic syndrome and patient has unexplained coagulopathy. Multiple consultants including Hematology are following the patient and patient at this point of time is fairly stable, tolerating oral diet well and patient also has pneumonia, for which patient is on broad-spectrum antibiotics. Infectious Disease is following the patient as well. Patient has right lower lobe pneumonia with parapneumonic effusion. Patient also has acute renal failure for which I am increasing the IV fluids and will check the electrolytes and kidney function tomorrow. Patient's lungs sound good. REVIEW OF SYSTEMS: CARDIOVASCULAR: No chest pain, no orthopnea, no PND, no palpitations. PULMONARY: Denied any shortness of breath. No cough or hemoptysis. GASTROINTESTINAL: No diarrhea, nausea or vomiting. No abdominal pain. Normoactive bowel sounds. NEUROLOGIC: No headaches, no weakness, no numbness. Medications were given. PHYSICAL EXAMINATION: Temperature 98.6, pulse of 96, respiratory rate of 16, blood pressure 132/64, saturating at 95% on 2 L of O2 nasal cannula. GENERAL: The patient is alert and oriented x3, not in any acute distress. Well developed, well nourished. HEENT: Pupils are round and equally reacting to light. EOMI. No scleral icterus. No conjunctival pallor. Normocephalic, atraumatic. No pharyngeal erythema. No thyromegaly. CARDIOVASCULAR: S1 and S2 present. No murmurs, rubs, or gallops. PULMONARY: Chest is clear to auscultation, no wheezing or crackles. ABDOMEN: Soft, nontender, nondistended, normoactive bowel sounds. No palpable organomegaly. MUSCULOSKELETAL: No joint swelling or deformity. EXTREMITIES: No cyanosis, clubbing, or pedal edema. NEUROLOGICAL: Gross neurological examination did not reveal any focal deficits. SKIN: No rashes. LABORATORY DATA: CBC, CMP are abnormal for mildly low hemoglobin of 7.7, which is fairly stable at that level, low platelet count of 1900. The WBC count of 8400, which is improved which is secondary to myelodysplastic syndrome. BUN of 48 and creatinine 1.76. ASSESSMENT AND PLAN: 1. Small bowel obstruction enteritis. Continue with present antibiotics including metronidazole. 2. Right lower lobe pneumonia with parapneumonic effusion and patient is on levofloxacin ( ) I believe ceftazidime. Sputum cultures are still pending. 3. 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 4. Coagulopathy, unexplained. No improvement with vitamin K. 5. Chronic kidney disease, stage III. 6. Acute renal failure from prerenal azotemia from above-mentioned multiple medical problems. 7. Type 2 diabetes mellitus. 8. Hypertension. 9. Hyperlipidemia. 10. Macular degeneration. PLAN: Continue with present medications. PT and OT evaluation. If possible to have discharge on Saturday to subacute rehab. If we are able to place him today, we probably can discharge the patient today. I am increasing the IV fluids to 100 mL per hour to recheck the creatinine tomorrow if he is staying in the hospital.
[2016-11-24] MEDS ORDERED: BISACODYL 10 MG SUPP RECTAL STA (16:21)
[2016-11-24] MEDS ORDERED: SODIUM CHLORIDE 0.9% 1,000 ML IV SCH (17:00)
[2016-11-24 17:24] LABS: Glucose,Whole Blood 161 mg/dL (75-99)
[2016-11-24] MEDS: MORPHINE SULFATE 4 MG/ML SYRINGE IVP PRN ×2 (17:26→21:12)
--- NOTE | 2016-11-24 18:18 | XR ---
EXAMINATION TYPE: XR chest 1V portable DATE OF EXAM: 11/24/2016 6:09 PM COMPARISON: 11/21/2016 HISTORY: Short of breath TECHNIQUE: Single frontal view of the chest is obtained. FINDINGS: There is some pneumonic consolidation at the right lung base. There is no gross heart fail ure. There is poor inspiration. There is blunting of costophrenic angles and more on the right side. Heart size is normal. IMPRESSION: Right lower lobe pneumonia and right pleural effusion that is worse than last exam. No g ross heart failure.
--- NOTE | 2016-11-24 18:20 | XR ---
EXAMINATION TYPE: XR abdomen 1V DATE OF EXAM: 11/24/2016 6:09 PM COMPARISON: November 15, 2016 HISTORY: Ileus TECHNIQUE: 2 views FINDINGS: There is no sign of intestinal obstruction or pneumoperitoneum. Fecal pattern is normal. Th ere are clips from cholecystectomy. 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 IMPRESSION: Nonacute abdomen. No adverse change compared to last exam.
[2016-11-24 18:47] LABS: Anisocytosis Slight; Basophils # (A) 0.1 k/uL (0-0.2); Basophils % (A) 1 %; CHCM 31.4; Eosinophils % (A) 0 %; HCT 26.6 % (39.0-53.0); HDW 2.59; HGB 8.7 gm/dL (13.0-17.5); Hypochromasia Slight; Immature Gran Flag Marked; Luc # (Auto) 0.29; Luc % (Auto) 4; Lymphocytes # (A) 2.4 k/uL (1.0-4.8); Lymphocytes % (A) 31 %; MCH 31.7 pg (25.0-35.0); MCHC 32.9 g/dL (31.0-37.0); MCV 96.3 fL (80.0-100.0); Mean Platelet Volume 9.6; Monocytes # (A) 0.2 k/uL (0-1.0); Monocytes % (A) 2 %; Neutrophils # (A) 4.8 k/uL (1.3-7.7); Neutrophils % (A) 63 %; RBC 2.76 m/uL (4.30-5.90); RDW 16.2 % (11.5-15.5); WBC 7.7 k/uL (3.8-10.6); WBC (Perox) 7.81
--- NOTE | 2016-11-24 19:08 | PN ---
DATE OF SERVICE: November 24, 2016 CHIEF COMPLAINT: Cramps. Carlitos seen today as a follow-up. He complained of his abdomen being distended and he has cramps in his abdomen. No bowel movement. He is mildly nauseated. No vomiting. No fever or chills. His medications reviewed in his electronic medical record. On physical examination, he is alert and oriented x3, elderly gentleman. VITAL SIGNS: Temperature 98.6, afebrile, pulse is 92, respiration is 16, blood pressure 132/64. HEENT: Normocephalic, atraumatic. No icterus. NECK: Supple. CHEST: Equal expansion bilaterally. LUNGS: Clear to auscultation. HEART: Regular rate and rhythm. ABDOMEN: Distended. Hypoactive bowel sounds. Generalized tenderness. EXTREMITIES: 1+ edema. SKIN: Reveals a few bruises. No petechiae or ecchymosis. LABORATORY DATA: WBC 7.6, hemoglobin 7.6, hematocrit 25.1, platelets are 41 up from 19. IMPRESSION: 1. Pancytopenia. The exact etiology is not clear; however, a bone marrow pathology is highly suspected. There is no clinical evidence to suggest peripheral sequestration and there is no evidence of B12 or folate deficiency on recent laboratory work-up and there is no evidence of monoclonal gammopathy as well. 2. Small bowel enteritis and clinically he has evidence suggestive of bowel obstruction. Surgery has been following. 3. Multiple other comorbidities. 4. Coagulopathy. Plasmic studies are still pending. He did not improve with his vitamin K supplement. RECOMMENDATIONS: 1. Monitor CBC for now. Continue supportive transfusion as needed. 2. The patient will eventually require a bone marrow biopsy to further investigate the cause of his pancytopenia. Again bone marrow pathology, such as advanced MDS, is highly suspected. 3. In regard to his abdominal issues, the patient is being followed closely by the surgical team and is covered by broad-spectrum antibiotics as well. The above was discussed with the patient and his family at bedside. I have answered all their questions.
[2016-11-24] MEDS: ALPRAZolam 0.25 MG TAB PO PRN (19:42)
[2016-11-24] MEDS ORDERED: SODIUM CHLORIDE 0.9% 500 ML IV ONE (20:13)
[2016-11-24 20:27] LABS: Glucose,Whole Blood 184 mg/dL (75-99)
[2016-11-24 21:11] LABS: Manual Review Performed
[2016-11-24 22:07] LABS: Glucose,Whole Blood 167 mg/dL (75-99)
--- NOTE | 2016-11-24 22:11 | CT ---
EXAMINATION TYPE: CT abdomen pelvis wo con DATE OF EXAM: 11/24/2016 9:56 PM COMPARISON: NONE HISTORY: pain and Abdominal distention CT DLP: 1409 mGycm Automated exposure control for dose reduction was used. TECHNIQUE: Helical acquisition of images was performed from the lung bases through the pelvis. FINDINGS: There is a large right pleural effusion. Heart size is normal. There is small pericardial effusion. T here is a large amount of ascites fluid throughout the abdomen. There are small calcified splenic gra nulomata. There is no sign of a pancreatic mass. There are clips from cholecystectomy. Liver shows no focal defect. There are bilateral multiple renal cortical cysts. There is no hydronephrosis.: There is no retroperitoneal adenopathy. There is oral contrast in the colon. There is a 6 x 4 cm are a of increased density involving the cecum on the medial and inferior aspect that could relate to a c ecal mass. There is mild enlargement of the distal small bowel with wall thickening. Terminal ileum h as wall thickening up to 1 cm. IMPRESSION: ASCITES. BILATERAL PLEURAL EFFUSIONS ARE LARGER ON THE RIGHT SIDE. THERE IS A POSSIBLE CECAL MASS JUDSON T IS SUSPICIOUS FOR TUMOR. THERE IS THICKENING OF THE WALL OF THE TERMINAL ILEUM. THERE ARE SOME MILD LY DILATED LOOPS OF SMALL BOWEL I WOULD CONSIDER THE POSSIBILITY OF A PARTIAL MECHANICAL OBSTRUCTION AND INFLAMMATORY BOWEL DISEASE. THERE ARE SEGMENTS OF THE LEFT COLON WITH SOME WALL THICKENING. THE ASCITES FLUID IS INCREASED COMPARED TO 11/16/2016. FOLLOW-UP IS RECOMMENDED.
[2016-11-24] MEDS: ATORVASTATIN 10 MG TAB PO SCH (22:51)
[2016-11-24 23:29] VITALS: PULSE 109
[2016-11-24] MEDS ORDERED: MORPHINE SULFATE 4 MG/ML SYRINGE IVP PRN (23:39)
--- NOTE | 2016-11-24 23:56 | P.DS ---
Providers Date of admission: 11/10/16 03:30 Expected date of discharge: 11/24/16 Attending physician: Allen Burnette Consults: 11/10/16 15:40 Consult Physician Routine Consulting Provider: Valentin Acharya Consult Reason/Comments: abd pain,ileitis,he bowl resection per Dr. acharya 4yrs ago Do you want consulting provider notified?: Yes 11/13/16 14:45 Consult Physician Urgent Consulting Provider: Rashawn Garcia Consult Reason/Comments: pancytopenia Do you want consulting provider notified?: Yes 11/19/16 12:16 Consult Physician Urgent Consulting Provider: Martin Shi Consult Reason/Comments: PNEUMONIA, ILEITIS, ANTIBIOTIC MANAGEMENT Do you want consulting provider notified?: Yes 11/19/16 12:17 Consult Physician Urgent Consulting Provider: Deysi Styles Consult Reason/Comments: PNEUMONIA Do you want consulting provider notified?: Yes 11/24/16 21:42 Consult Physician Routine Consulting Provider: Matthew Rivera Consult Reason/Comments: ICU transfer Do you want consulting provider notified?: Yes Primary care physician: Allen Burnette - Discharge Diagnosis(es) (1) Weakness Current Visit: Yes Status: Acute (2) Enteritis Current Visit: Yes Status: Acute (3) Pancytopenia Current Visit: Yes Status: Acute Priority: High (4) Typhlitis Current Visit: Yes Status: Acute Hospital Course: The patient presented with abdominal pain and distention. CT was suggestive of enteritis. He was treated conservatively. He had evidence of a pancytopenia. On the morning of the he was feeling better but had a slight amount of nausea. Through the day however the pain got significantly worse and he began to be more distended. Repeat lab was done showing that his platelet count was elevated from 19,000-44,000 after transfusion. Her first lactic acid significantly increased. A repeat CAT scan showed increase in the amount of ascites and worsening inflammatory changes of the terminal ileum and now the cecum was involved. He developed an acute surgical abdomen. It was felt he needed to be transferred to a tertiary care center who had better blood think capabilities. Dr. Valentin Bedoya agreed for transfer Pertinent Studies: Lab and CT scans Patient Condition at Discharge: Serious Plan - Discharge Summary Discharge Medication List ALPRAZolam [Xanax] 0.25 mg PO TID PRN 06/30/14 [History] Simvastatin [Zocor] 20 mg PO HS 06/30/14 [History] metFORMIN HCL 1,000 mg PO BID 06/30/14 [History] Acetaminophen-Codeine 300-30mg [Tylenol #3] 1 tab PO TID PRN 11/10/16 [History] Ciprofloxacin HCl [Cipro] 500 mg PO Q12HR 11/10/16 [History] Glimepiride [Amaryl] 2 mg PO BID 11/10/16 [History] Lisinopril [Prinivil] 5 mg PO DAILY 11/10/16 [History] Follow up Appointment(s)/Referral(s): Rashawn Garcia MD [STAFF PHYSICIAN] - 2 Weeks Allen Burnette DO [Primary Care Provider] - 1-2 days Discharge Disposition: DC/[facility] INTERMEDIATE CARE FAC
[2016-11-25] MEDS: metroNIDAZOLE 500 MG TAB PO SCH (00:15)
[2016-11-25] MEDS: methylPREDNISolone SOD SUCCI 125 MG/2 ML VIAL IV SCH (00:17)
[2016-11-25] MEDS ORDERED: SODIUM BICARB 8.4% 50 ML SYR (1 MEQ/ML) ONE (00:32)
[2016-11-25 00:51] LABS: ABG Base Excess -8.9 mmol/L; ABG HCO3 15 mmol/L (21-25); ABG PCO2 28 mmHg (35-45); ABG PH 7.37 (7.35-7.45); ABG PO2 66 mmHg (83-108); ABG TCO2 16 mmol/L (19-24)
[2016-11-25] MEDS ORDERED: DEXTROSE 5% IN WATER 1,000 ML with SODIUM BICARB (1 MEQ/ML) 150 ML IV SCH (01:00)
[2016-11-25 01:24] VITALS: BP 87/49; RESP 10; TEMP 97.1
--- NOTE | 2016-11-25 07:27 | PN ---
DATE OF SERVICE: 11/24/2016 Reason for follow-up is possible pneumonia. INTERVAL HISTORY: The patient was seen on rounds early this afternoon with the patient complaining of some constipation, unable to have a bowel movement, some vague abdominal discomfort. No nausea or vomiting. Denies any chest pain or shortness of breath or cough. On examination, blood pressure 140/63 with a pulse of 93, temperature 98. General description is an elderly may up in the chair in no distress. RESPIRATORY SYSTEM: Unlabored breathing with decreased breath sounds at the bases. HEART: S1, S2, regular rate and rhythm. ABDOMEN: Soft. Slightly distended. No guarding, no rigidity. LABS: Hemoglobin 8.7, white count 7.7. DIAGNOSTIC IMPRESSION AND PLAN: Patient admitted to the hospital with abdominal pain diagnosed with possible inflammatory bowel disease with ileitis and followed by development of left lower lobe infiltrate and question of pneumonia. Sputum has been negative for any resistant pathogens and so far blood culture negative. Flagyl and Levaquin will be continued. CT abdomen has been ordered for this abdominal pain. Will wait for it to be finalized. Continue supportive care. MIKD
--- NOTE | 2016-11-25 08:28 | PN ---
DATE OF SERVICE: 11/24/2016 I was called to see Mr. Zuniga because his condition had changed. I had seen him earlier in the day and he had been doing well, however, through the day he began to get progressively more distended and was having abdominal pain. He had repeat lab drawn, which showed that his lactic acid was up significantly to 5.4. His repeat a CBC this evening showed a platelet count 44,000 after transfusion of platelets. His hemoglobin was 8.7. He had a repeat CT scan of the abdomen and pelvis done which showed a large increase the amount of ascites, worsening of the inflammatory change in the ileum and cecum with dilation of the more proximal loops of small bowel. There was significantly more free fluid noted along with pleural effusions. On physical exam, compared to this morning his abdomen is tense, distended, diffuse pain with voluntary guarding. ASSESSMENT: Lactic acidosis, likely on the basis of acute typhlitis. RECOMMENDATIONS: I had a discussion with patient and family. Recommend immediate transfer to a tertiary center. I explained he likely will need surgery; however, with his pancytopenia and especially his thrombocytopenia he would be better served at a larger center. Questions were encouraged and answered. Will try to expedite his transfer.
[2016-11-25] MEDS ORDERED: LEVOFLOXACIN 750 MG TAB PO SCH (09:00)
[2016-11-29 08:51] LABS: Mis test requested (Blood) Fibrinogen Antigen
[2016-12-05 16:42] LABS: Mis test requested (Blood) Mixing Studies
== END 2016-11-25 01:08 | disposition short-term general hospital (02) | DRG 391 ==
LOC: EC 00:58 → 5MS5E 03:30 → 6ICU 11-24 21:42
PROVIDERS: ADMIT Family Medicine; ATTEND Family Medicine
PROC: 30233M1 Transfusion of Nonautologous Plasma Cryoprecipitate into Peripheral Vein, Percutaneous Approach (ICD-10-PCS; principal; 2016-11-19)
PROC: 30233N1 Transfusion of Nonautologous Red Blood Cells into Peripheral Vein, Percutaneous Approach (ICD-10-PCS; 2016-11-24)
DX: K52.9 Noninfective gastroenteritis and colitis, unspecified (principal); J18.9 Pneumonia, unspecified organism; J90 Pleural effusion, not elsewhere classified; N17.9 Acute kidney failure, unspecified; D61.818 Other pancytopenia; K56.60 Unspecified intestinal obstruction; E87.2 Acidosis; E87.1 Hypo-osmolality and hyponatremia; J98.11 Atelectasis; K35.80 Unspecified acute appendicitis; E11.22 Type 2 diabetes mellitus with diabetic chronic kidney disease; E86.0 Dehydration; D46.9 Myelodysplastic syndrome, unspecified; E11.65 Type 2 diabetes mellitus with hyperglycemia; I12.9 Hypertensive chronic kidney disease with stage 1 through stage 4 chronic kidney disease, or unspecified chronic kidney disease; E78.5 Hyperlipidemia, unspecified; E66.9 Obesity, unspecified; F17.200 Nicotine dependence, unspecified, uncomplicated; H35.30 Unspecified macular degeneration; M19.90 Unspecified osteoarthritis, unspecified site; N18.3 Chronic kidney disease, stage 3 (moderate); R33.9 Retention of urine, unspecified; K57.90 Diverticulosis of intestine, part unspecified, without perforation or abscess without bleeding; R79.1 Abnormal coagulation profile; Z79.899 Other long term (current) drug therapy; Z96.642 Presence of left artificial hip joint; Z68.31 Body mass index [BMI] 31.0-31.9, adult
CPT/HCPCS: 36415; 36600; 71010; 74000; 74020; 74176; 76604; 80048; 80053; 81001; 82150; 82550; 82553; 82565; 82607; 82728; 82747; 82805; 83036; 83540; 83550; 83605; 83690; 83735; 83883; 84100; 84165; 84484; 84520; 85025; 85027; 85045; 85384; 85385; 85610; 85611; 85652; 85730; 86140; 86334; 86850; 86900; 86901; 87040; 87070; 87086; 87205; 87502; 93005; 94640; 96361; 96365; 96375; 96376; 99285